=== PATIENT | male | born 1975 | race Caucasian/White ===

== ENCOUNTER → 2016-11-06 | Outpatient (CLI) | payer OTHER ==
[~2016-11-06] MED LIST: ATV/2 PO; BACL10TA PO; CYCL10TA6 PO; DIVA500T59 PO; FLX10 PO; GABA-113 PO; GABA1CAP4 PO; GABA600T PO; GEMF600T PO; LISI20TA3 PO; LPR25 PO; LRS10 PO; MAGN200T4 PO; MECL1TAB42 PO; OXYC1TAB3 PO; OXYC7.5T62 PO; PRAZ1CAP28 PO; PRAZ2CAP2 PO; PRED50TA PO; PXL20 PO; QUET1TAB10 PO; QUET1TAB90 PO; QUET5TAB PO; SENN8.6T7 PO; SUMA50TA15 PO; TPM/50 PO; TRAZ100T29 PO; VENL75CA PO
--- NOTE | 2016-11-08 16:54 | EEG Procedure Note ---
EEG Procedure Note Date of Service November 06, 2016. Start / End Times Start Time: 948 End Time: 1009 Referring Physician Erica Benitez PA-C History 41-year-old with syncopal episodes, question seizure Home Medication List Scheduled Divalproex Sodium (Depakote), 500 MG PO HS Gabapentin (Neurontin), 600 MG PO QID Gemfibrozil (Lopid), 600 MG PO BID Lisinopril (Prinivil), 20 MG PO DAILY Magnesium (Magnesium Oxide), 400 MG PO DAILY Metoprolol Tartrate (Lopressor), 25 MG PO BID Prazosin Hcl (Prazosin), 1 MG PO HS Quetiapine Fumarate (Seroquel), 300 MG PO HS Trazodone Hcl (Trazodone), 100 MG PO HS Venlafaxine Hcl (Effexor Xr), 75 MG PO DAILY Scheduled PRN Cyclobenzaprine HCl (Cyclobenzaprine HCl), 10 MG PO BID PRN for Muscle Spasms Lorazepam (Ativan), 2 MG PO TID PRN for Anxiety/Agitation Meclizine Hcl (Meclizine Hcl), 25 MG PO BID PRN for Dizziness or Vertigo Sumatriptan Succinate (Imitrex), 50 MG PO PRN PRN for Migraine Description This is a 21 electrode EEG with a single channel dedicated to limited EKG. The electrodes were placed in accordance with the International 10-20 system. Interpretation the predominant background activity consisted of very well-modulated 8.5 Hz activity of up to 65 V and F8 seen over the posterior head regions bilaterally spreading anteriorly. This activity is some attenuation with eye opening and other alerting procedures. A minimal amount of muscle and movement artifact activity contaminated the recording. Photic stimulation produced no driving response and no abnormalities were noted. Hyperventilation was not performed. Throughout the waking portion of this recording no focal abnormalities, potentially epileptogenic discharges, or abnormal slow activity was seen. Towards the end of the recording he had the drowsy state with no further activation. overall, the study is normal during wakefulness and brief periods of drowsiness. No focal abnormalities are noted and no potentially epileptogenic discharges were seen. Clinical Correlation a normal EEG does not rule out a seizure disorder and clinical correlation is required.
== END | disposition home or self-care (01) ==
LOC: C.NEUR 09:37
PROVIDERS: ATTEND Physician Assistant
DX: R55 Syncope and collapse (principal)

== ENCOUNTER 2017-05-13 21:33 | Emergency (ER) | payer OTHER ==
[~2017-05-13] VITALS: Ht 182.9 cm; Wt 120.0 kg
[~2017-05-13 21:33] MED LIST changes: -BACL10TA PO; -CYCL10TA6 PO; -GABA-113 PO; -GABA1CAP4 PO; -LRS10 PO; -OXYC1TAB3 PO; -OXYC7.5T62 PO; -PRAZ2CAP2 PO; -PRED50TA PO; -PXL20 PO; -QUET1TAB10 PO; -QUET5TAB PO; -SENN8.6T7 PO; -TPM/50 PO
[2017-05-13 21:38] VITALS: TEMP 36.7; Ht 182.9 cm; Wt 120.0 kg
[2017-05-13] MEDS ORDERED: HYDROmorphone INJ 2 MG/ML SYR/VIAL IM STA (21:53)
[2017-05-13] MEDS ORDERED: PROMETHAZINE HCL INJ 25 MG/ML 1 ML VIAL IM STA (21:53)
[2017-05-13] MEDS ORDERED: KETOROLAC TROMETHAMINE 60 MG/2 ML VIAL IM STA (21:53)
[2017-05-13] MEDS ORDERED: DEXAMETHASONE **PF** INJ 10 MG/ML VIAL IM ONE (22:00)
[2017-05-13] MEDS ORDERED: GABA1CAP4 PO (23:01)
[2017-05-13] MEDS ORDERED: GABA-113 PO (23:01)
[2017-05-13] MEDS ORDERED: PRAZ2CAP2 PO (23:01)
[2017-05-13] MEDS ORDERED: TPM/50 PO (23:01)
[2017-05-13] MEDS ORDERED: PXL20 PO (23:01)
[2017-05-13] MEDS ORDERED: QUET5TAB PO (23:01)
[2017-05-13] MEDS ORDERED: LRS10 PO (23:01)
[2017-05-13] MEDS ORDERED: QUET1TAB10 PO (23:01)
[2017-05-13] MEDS ORDERED: BACL10TA PO (23:01)
[2017-05-13 23:20] VITALS: BP 129/85; PULSE 86; O2SAT 96
[2017-05-13] MEDS ORDERED: CYCL10TA6 PO (23:30)
[2017-05-13] MEDS ORDERED: OXYCODONE IR HOME PACK PO ONE (23:30)
[2017-05-13] MEDS ORDERED: OXYC1TAB3 PO (23:30)
[2017-05-13] MEDS ORDERED: PRED50TA PO (23:30)
--- NOTE | 2017-05-14 00:18 | DIAGNOSTIC IMAGING REPORT ---
L-SPINE MIN 4 VIEWS ROUTINE CLINICAL HISTORY: 41 years-old Male presenting with low back pain. TECHNIQUE: Frontal, bilateral oblique, lateral, and coned in lateral views of the lumbar spine were obtained. COMPARISON: None. FINDINGS: Normal lumbar lordosis. Vertebral bodies maintain normal height and alignment. Intervertebral disc spaces preserved. No degenerative change. No radiographic evidence of acute fracture or subluxation. No gross evidence of osseous neural foraminal narrowing. No pars defect. Cholecystectomy clips noted. Mild stool burden. IMPRESSION: Normal lumbar spine. Electronically signed by: Gordo Aragon M.D. 05/14/2017 12:16 AM Dictated Date/Time: 05/14/2017 12:15 AM
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
== END 2017-05-13 23:48 | disposition home or self-care (01) ==
LOC: C.EDB 21:35
DX: M54.5 Low back pain (principal); F31.9 Bipolar disorder, unspecified; F41.9 Anxiety disorder, unspecified; F32.9 Major depressive disorder, single episode, unspecified; Z79.899 Other long term (current) drug therapy; Z87.81 Personal history of (healed) traumatic fracture; F17.200 Nicotine dependence, unspecified, uncomplicated

== ENCOUNTER 2017-05-21 10:25 | Inpatient (IN) | payer OTHER ==
[~2017-05-21] VITALS: Ht 182.9 cm; Wt 117.0 kg
[~2017-05-21 10:25] MED LIST changes: -ATV/2 PO; +CYCL10TA6 PO; -DIVA500T59 PO; -FLX10 PO; +GABA-113 PO; +GABA1CAP4 PO; -GABA600T PO; -GEMF600T PO; -LISI20TA3 PO; -LPR25 PO; +LRS10 PO; -MAGN200T4 PO; -MECL1TAB42 PO; -PRAZ1CAP28 PO; +PRAZ2CAP2 PO; +PXL20 PO; +QUET1TAB10 PO; -QUET1TAB90 PO; +QUET5TAB PO; -SUMA50TA15 PO; +TPM/50 PO; -TRAZ100T29 PO; -VENL75CA PO
[2017-05-21] MEDS ORDERED: ONDANSETRON INJ 2 MG/ML 2 ML VIAL IV STA (10:43)
[2017-05-21] MEDS ORDERED: HYDROmorphone INJ 1 MG/ML SYR IV STA ×3 (10:43→13:42)
[2017-05-21] MEDS ORDERED: KETOROLAC TROMETHAMINE 30 MG/ML VIAL IV STA (10:43)
[2017-05-21] MEDS ORDERED: DEXAMETHASONE INJ 10 MG in SYRINGE 0 ML IV STA (10:43)
[2017-05-21] MEDS ORDERED: LIDODERM (LIDOCAINE) PATCH 5% TD STA (10:43)
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
[2017-05-21 11:12] LABS: BASO % 0.2 %; BASO ABS # 0.02 K/uL (0-0.2); COMPLETE YES; EOS % 1.3 %; IG% 0.4 %; LYMPH % 21.8 %; LYMPH ABS # 2.58 K/uL (1.2-3.4); MEAN CELL VOLUME 89.5 fL (80-100); MEAN CORPUSCULAR HEMOGLOBIN 30.1 pg (25-34); MEAN CORPUSCULAR HGB CONC 33.6 g/dl (32-36); MEAN PLATELET VOLUME 10.6 fL (7.4-10.4); MONO % 5.6 %; NEUT % 70.7 %; PLATELET COUNT 240 K/uL (130-400); RED BLOOD COUNT 5.25 M/uL (4.7-6.1); WHITE BLOOD COUNT 11.81 K/uL (4.8-10.8)
[2017-05-21 11:18] LABS: ALT/SGPT 31 U/L (12-78); AST/SGOT 11 U/L (15-37); BLOOD UREA NITROGEN 21 mg/dl (7-18); BUN/CREATININE RATIO 22.6 (10-20); CALCIUM 8.8 mg/dl (8.5-10.1); CARBON DIOXIDE 21 mmol/L (21-32); CHLORIDE 107 mmol/L (98-107); CREATININE 0.95 mg/dl (0.60-1.40); GLUCOSE 87 mg/dl (70-99); POTASSIUM 4.3 mmol/L (3.5-5.1); SODIUM 137 mmol/L (136-145)
[2017-05-21 11:21] LABS: ALKALINE PHOSPHATASE 103 U/L (45-117)
[2017-05-21] MEDS ORDERED: METOCLOPRAMIDE HCL INJ 5 MG/ML 2 ML VIAL IV STA (12:25)
[2017-05-21 12:58] LABS: URINE APPEARANCE CLEAR (CLEAR); URINE BILIRUBIN NEG (NEG); URINE COLOR YELLOW; URINE NITRITE NEG (NEG); URINE SPECIFIC GRAVITY 1.023 (1.000-1.030); UROBILINOGEN NEG (NEG)
[2017-05-21 13:09] LABS: MANUAL MICROSCOPIC REQUIRED? NO; REVIEW REQ? NO
[2017-05-21] MEDS ORDERED: PROMETHAZINE HCL INJ 25 MG in SODIUM CHLORIDE 0.9% 50ML 50 ML IV STA (13:42)
--- NOTE | 2017-05-21 13:42 | DIAGNOSTIC IMAGING REPORT ---
LUMBAR SPINE MRI HISTORY: Pt c/o low back pain TECHNIQUE: Multiplanar multisequence MRI of the lumbar spine was performed without the use of contrast. COMPARISON: Lumbar spine 05/13/2017. FINDINGS: For the purpose of the report the L5-S1 disc space will be located on axial image 24 of 26. Mild motion artifact. No fracture or subluxation. Disc spaces are preserved. Mild disc desiccation at L3-L4 and L4-L5. The conus terminates at the L1 level. Paraspinal soft tissues are unremarkable. L1-L2: No significant central canal or neural foraminal narrowing. L2-L3: No significant central canal or neural foraminal narrowing. L3-L4: There is a right foraminal/extraforaminal focal disc protrusion which abuts and slightly displaces the exiting right L3 nerve root. No central canal or left-sided neural foraminal narrowing. L4-L5: Small central/right paracentral focal disc protrusion which abuts the transiting right L5 nerve root. No significant central canal or neural foraminal narrowing. L5-S1: Tiny left paracentral focal disc protrusion which abuts but does not significantly deform the transiting left S1 nerve root. No significant central canal or neural foraminal narrowing. IMPRESSION: 1. A right foraminal/extraforaminal broad-based disc protrusion at L3-L4 which abuts and slightly displaces the exiting right L3 nerve root. 2. A small central/right paracentral focal disc protrusion at L4-L5 which abuts but does not deform the transiting right L5 nerve root. 3. A tiny left paracentral focal disc protrusion at L5-S1 which abuts but does not deform the transiting left S1 nerve root. Electronically signed by: Tony Aguirre M.D. 05/21/2017 1:41 PM Dictated Date/Time: 05/21/2017 1:34 PM
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
[2017-05-21] MEDS ORDERED: ALUMINUM/MAGNESIUM/SIMETH (MAALOX MAX) 30 ML UDC PO PRN (14:30)
[2017-05-21] MEDS ORDERED: ZOLPIDEM TARTRATE 5 MG TAB PO PRN (14:30)
[2017-05-21] MEDS ORDERED: POLYETHYLENE (MIRALAX) 17 GM PACK PO PRN (14:30)
[2017-05-21] MEDS ORDERED: MAGNESIUM HYDROXIDE SUSP 30 ML UDC PO PRN (14:30)
[2017-05-21] MEDS ORDERED: ACETAMINOPHEN 325 MG TAB PO PRN (14:30)
--- NOTE | 2017-05-21 14:41 | DIAGNOSTIC IMAGING REPORT ---
CHEST ONE VIEW PORTABLE CLINICAL HISTORY: Preoperative chest COMPARISON STUDY: 07/20/2014 FINDINGS: The heart is the upper limits of normal in size. There is no failure. There is no focal pulmonary consolidation. There are no pleural effusions. Increased density of the left anterior fourth fifth and sixth ribs, while nonspecific likely is secondary to healing fractures[ IMPRESSION: Suspected healing left-sided rib fractures. No active disease in the chest. Electronically signed by: Roosevelt Serrato M.D. 05/21/2017 2:39 PM Dictated Date/Time: 05/21/2017 2:38 PM
[2017-05-21 15:56] VITALS: BP 156/99; PULSE 87; TEMP 36.6; O2SAT 92
[2017-05-21 16:14] VITALS: BP 156/99; PULSE 87; TEMP 36.6; O2SAT 97; Ht 182.9 cm; Wt 117.0 kg
[2017-05-21] MEDS ORDERED: HYDROmorphone INJ 1 MG/ML SYR IV ONE (16:15)
[2017-05-21 16:30] VITALS: O2SAT 97
[2017-05-21] MEDS: PROMETHAZINE HCL INJ 12.5 MG in SODIUM CHLORIDE 0.9% 50ML 50 ML IV PRN (16:35)
[2017-05-21] MEDS ORDERED: OXYCODONE/ACETAMINOPHEN 7.5-325 TAB PO PRN (18:15)
[2017-05-21] MEDS: OXYCODONE/ACETAMINOPHEN 7.5-325 TAB PO PRN ×2 (18:35→22:40)
[2017-05-21] MEDS: HYDROmorphone INJ 1 MG/ML SYR IV PRN ×2 (20:05→23:53)
[2017-05-21] MEDS: BACLOFEN 10 MG TAB PO SCH (20:06)
[2017-05-21] MEDS: DOCUSATE SODIUM 100 MG CAP PO SCH (20:06)
[2017-05-21] MEDS: GABAPENTIN 300 MG CAP PO SCH (20:06)
[2017-05-21] MEDS: PRAZOSIN HCL 1 MG CAP PO SCH (20:06)
[2017-05-21] MEDS: TOPIRAMATE 50 MG TAB PO SCH (20:07)
[2017-05-21] MEDS: QUETIAPINE FUMARATE 200 MG TAB PO SCH (20:07)
[2017-05-21] MEDS: NICOTINE 21 MG/24 HR TDSY TD SCH (20:08)
[2017-05-21] MEDS: PAROXETINE 20 MG TAB PO SCH (20:08)
[2017-05-21] MEDS ORDERED: INFLUENZA VIRUS QUAD VACCINE 0.5 ML SYR IM. ONE (21:15)
[2017-05-21] MEDS ORDERED: INFLUENZA ADMINISTRATION CHARGE ONE (21:15)
[2017-05-21 22:46] VITALS: BP 121/73; PULSE 96; TEMP 36.7; O2SAT 95
[2017-05-21] MEDS: ONDANSETRON INJ 2 MG/ML 2 ML VIAL IV PRN (23:20)
[2017-05-22] MEDS: PROMETHAZINE HCL INJ 12.5 MG in SODIUM CHLORIDE 0.9% 50ML 50 ML IV PRN ×2 (00:12→08:44)
[2017-05-22] MEDS: HYDROmorphone INJ 1 MG/ML SYR IV PRN ×5 (04:21→21:57)
[2017-05-22] MEDS: ONDANSETRON INJ 2 MG/ML 2 ML VIAL IV PRN (05:30)
[2017-05-22] MEDS: OXYCODONE/ACETAMINOPHEN 7.5-325 TAB PO PRN ×4 (05:31→20:13)
[2017-05-22 06:10] LABS: HEMATOCRIT 44.1 % (42-52); MEAN CELL VOLUME 90.6 fL (80-100); MEAN CORPUSCULAR HEMOGLOBIN 30.4 pg (25-34); MEAN CORPUSCULAR HGB CONC 33.6 g/dl (32-36); MEAN PLATELET VOLUME 11.4 fL (7.4-10.4); PLATELET COUNT 230 K/uL (130-400); RED BLOOD COUNT 4.87 M/uL (4.7-6.1); WHITE BLOOD COUNT 19.84 K/uL (4.8-10.8)
[2017-05-22 06:23] LABS: PROTHROMBIN TIME (PATIENT) 10.5 SECONDS (9.0-12.0)
[2017-05-22 07:01] LABS: BUN/CREATININE RATIO 19.9 (10-20); CALCIUM 8.5 mg/dl (8.5-10.1); CREATININE 0.99 mg/dl (0.60-1.40); POTASSIUM 4.2 mmol/L (3.5-5.1)
[2017-05-22 07:34] VITALS: BP 143/80; PULSE 114; TEMP 36.5; O2SAT 94
[2017-05-22] MEDS: PAROXETINE 20 MG TAB PO SCH ×2 (07:41→20:10)
[2017-05-22] MEDS: NICOTINE 21 MG/24 HR TDSY TD SCH (07:41)
[2017-05-22] MEDS: POLYETHYLENE (MIRALAX) 17 GM PACK PO SCH (07:41)
[2017-05-22] MEDS: GABAPENTIN 300 MG CAP PO SCH ×3 (07:42→20:10)
[2017-05-22] MEDS: QUETIAPINE FUMARATE 25 MG TAB PO SCH (07:42)
[2017-05-22] MEDS: DOCUSATE SODIUM 100 MG CAP PO SCH ×2 (07:42→20:09)
[2017-05-22] MEDS: BACLOFEN 10 MG TAB PO SCH ×3 (07:42→20:10)
[2017-05-22] MEDS: TOPIRAMATE 50 MG TAB PO SCH ×2 (07:42→20:12)
[2017-05-22] MEDS: LIDODERM (LIDOCAINE) PATCH 5% TD SCH (07:43)
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
[2017-05-22 15:05] VITALS: BP 135/85; PULSE 93; TEMP 36.6; O2SAT 94
--- NOTE | 2017-05-22 16:11 | Progress Note ---
Internal Med Progress Note Date of Service: May 22, 2017. Provider Documentation: SUBJECTIVE: complains of severe back pain radiating to his legs sob from pain afebrile no nausea or chest pain OBJECTIVE: Vital Signs-as noted below Exam: General-alert and oriented. Not in distress ENT-Normal hearing Neck-no neck masses Lungs-CTA b/l no wheezing or crackles Heart-S1 and S2 heard. Regular rate and rhythm, no murmurs Abdomen-Soft Bowel sounds present no tenderness present no distension Extremities-no edema no erythema. Neuro-alert and awake moves extremities Lab data as noted below. ASSESSMENT & PLAN: LOW BACK PAIN /LUMBER RADICULOPATHY : presented with worsening of back pain for past 1 week MRI spine mild disc protrusion at L3-L4 and L4-L5 levels Ortho recommends pain management pain control pt/to DEPRESSION : continue home meds TOBACCO ABUSE : Nicotine patch smoking cessation counselling FULL CODE DVT PROPHYLAXIS : SCD and teds ambulate DISPOSITION ; possible d/c in 1-2 days Medicine follow up with Dr Burleson Vital Signs: Date Time Temp Pulse Resp B/P (MAP) Pulse Ox O2 Delivery O2 Flow Rate FiO2 05/22/17 15:05 36.6 93 18 135/85 (102) 94 Room Air 05/22/17 07:34 36.5 114 20 143/80 (101) 94 Room Air 05/22/17 07:30 Room Air 05/21/17 23:30 Room Air 05/21/17 22:46 36.7 96 18 121/73 (89) 95 Room Air 05/21/17 19:40 Room Air 05/21/17 16:30 97 Room Air 05/21/17 16:14 36.6 87 22 156/99 97 Room Air Lab Results: Results Past 24 Hours Test 05/22/17 05:48 Range/Units White Blood Count 19.84 4.8-10.8 K/uL Red Blood Count 4.87 4.7-6.1 M/uL Hemoglobin 14.8 14.0-18.0 g/dL Hematocrit 44.1 42-52 % Mean Corpuscular Volume 90.6 80-100 fL Mean Corpuscular Hemoglobin 30.4 25-34 pg Mean Corpuscular Hemoglobin Concent 33.6 32-36 g/dl RDW Standard Deviation 42.4 36.4-46.3 fL RDW Coefficient of Variation 12.9 11.5-14.5 % Platelet Count 230 130-400 K/uL Mean Platelet Volume 11.4 7.4-10.4 fL Prothrombin Time 10.5 9.0-12.0 SECONDS Prothromb Time International Ratio 1.0 0.9-1.1 Sodium Level 135 136-145 mmol/L Potassium Level 4.2 3.5-5.1 mmol/L Chloride Level 103 98-107 mmol/L Carbon Dioxide Level 22 21-32 mmol/L Anion Gap 10.0 3-11 mmol/L Blood Urea Nitrogen 20 7-18 mg/dl Creatinine 0.99 0.60-1.40 mg/dl Est Creatinine Clear Calc Drug Dose 129.7 ml/min Estimated GFR () 109.2 Estimated GFR (Non- 94.2 BUN/Creatinine Ratio 19.9 10-20 Random Glucose 170 70-99 mg/dl Calcium Level 8.5 8.5-10.1 mg/dl
[2017-05-22 20:08] VITALS: BP 123/82; PULSE 88
[2017-05-22] MEDS: PRAZOSIN HCL 1 MG CAP PO SCH (20:11)
[2017-05-22] MEDS: QUETIAPINE FUMARATE 200 MG TAB PO SCH (20:12)
[2017-05-22 22:00] VITALS: PULSE 89; O2SAT 93
[2017-05-22 22:46] VITALS: BP 149/73; PULSE 84; TEMP 36.6; O2SAT 94
[2017-05-23] MEDS: HYDROmorphone INJ 1 MG/ML SYR IV PRN ×4 (02:46→15:48)
[2017-05-23] MEDS: OXYCODONE/ACETAMINOPHEN 7.5-325 TAB PO PRN (06:07)
[2017-05-23 06:48] VITALS: BP 158/95; PULSE 80; TEMP 36.5; O2SAT 94
[2017-05-23] MEDS: QUETIAPINE FUMARATE 25 MG TAB PO SCH (07:30)
[2017-05-23] MEDS: GABAPENTIN 300 MG CAP PO SCH ×2 (07:30→14:18)
[2017-05-23] MEDS: TOPIRAMATE 50 MG TAB PO SCH (07:30)
[2017-05-23] MEDS: DOCUSATE SODIUM 100 MG CAP PO SCH (07:30)
[2017-05-23] MEDS: BACLOFEN 10 MG TAB PO SCH ×2 (07:31→14:18)
[2017-05-23] MEDS: LIDODERM (LIDOCAINE) PATCH 5% TD SCH (07:31)
[2017-05-23] MEDS: PAROXETINE 20 MG TAB PO SCH (07:31)
[2017-05-23] MEDS: NICOTINE 21 MG/24 HR TDSY TD SCH (07:32)
[2017-05-23] MEDS: POLYETHYLENE (MIRALAX) 17 GM PACK PO SCH (07:32)
[2017-05-23 10:44] VITALS: BP 122/83; PULSE 84; O2SAT 96
--- NOTE | 2017-05-23 15:39 | Progress Note ---
Internal Med Progress Note Date of Service: May 23, 2017. Provider Documentation: SUBJECTIVE: still has severe back pain radiating to his legs sob from pain moved bowels afebrile wants to go home OBJECTIVE: Vital Signs-as noted below Exam: General-alert and oriented. Not in distress ENT-Normal hearing Neck-no neck masses Lungs-CTA b/l no wheezing or crackles Heart-S1 and S2 heard. Regular rate and rhythm, no murmurs Abdomen-Soft Bowel sounds present no tenderness present no distension Extremities-no edema no erythema. Neuro-alert and awake moves extremities Lab data as noted below. ASSESSMENT & PLAN: LOW BACK PAIN /LUMBER RADICULOPATHY : presented with worsening of back pain for past 1 week MRI spine mild disc protrusion at L3-L4 and L4-L5 levels Ortho recommends pain management pain control pt/to f/u with pcp and pain management DEPRESSION : continue home meds TOBACCO ABUSE : Nicotine patch smoking cessation counselling FULL CODE DVT PROPHYLAXIS : SCD and teds ambulate DISPOSITION ; possible d/c today Medicine follow up with Dr Burleson Vital Signs: Date Time Temp Pulse Resp B/P (MAP) Pulse Ox O2 Delivery O2 Flow Rate FiO2 05/23/17 10:44 84 96 05/23/17 08:00 Room Air 05/23/17 06:48 36.5 80 19 158/95 (116) 94 Room Air 05/22/17 23:15 Room Air 05/22/17 22:46 36.6 84 17 149/73 (98) 94 Room Air 05/22/17 22:00 89 93 Room Air 05/22/17 20:08 88 123/82 (96) 05/22/17 16:00 Room Air
[2017-05-23 15:40] VITALS: BP 158/107; PULSE 88; TEMP 36.4; O2SAT 93
[2017-05-23 16:00] VITALS: O2SAT 93
[2017-05-23] MEDS ORDERED: OXYC7.5T62 PO (17:22)
[2017-05-23] MEDS ORDERED: SENN8.6T7 PO (17:22)
--- NOTE | 2017-05-23 17:24 | Discharge Instructions ---
Discharge Instructions Date of Service May 23, 2017. Admission Reason for Admission: Low Back Pain Discharge Discharge Diagnosis / Problem: Severe low back pain Discharge Goals Goal(s): Decrease discomfort, Improve function Activity Recommendations Activity Limitations: resume your previous activity . Instructions / Follow-Up Instructions / Follow-Up FOLLOWUP WITH FAMILY DOCTOR ON Apr AT 9:45AM FOLLOWUP WITH PAIN MANAGEMENT FOR LOWER BACK PAIN TO AMBULATE TO PREVENT BLOOD CLOTS Current Hospital Diet Patient's current hospital diet: Regular Diet Discharge Diet Recommended Diet: AHA Diet (Heart Healthy) Pending Studies Studies pending at discharge: no Medical Emergencies . Who to Call and When: Medical Emergencies: If at any time you feel your situation is an emergency, please call 911 immediately. . Non-Emergent Contact Non-Emergency issues call your: Primary Care Provider . . "Provider Documentation" section prepared by Aba Choudhary. . VTE Core Measure Inpt VTE Proph given/why not?: Zoltan Forrest, SCD's
[2017-05-23 17:33] VITALS: BP 158/107; PULSE 88; TEMP 36.4; O2SAT 93
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
== END 2017-05-23 18:00 | disposition home or self-care (01) | DRG 552 ==
LOC: C.EDB 10:26 → C.MSW 14:19 → EDBEDREQ 14:31 → ENRESERV 15:03
PROVIDERS: ADMIT Hospitalist; ATTEND Internal Medicine
DX: M51.17 Intervertebral disc disorders with radiculopathy, lumbosacral region (principal); I10 Essential (primary) hypertension; F32.9 Major depressive disorder, single episode, unspecified; E66.9 Obesity, unspecified; Z79.899 Other long term (current) drug therapy; F17.200 Nicotine dependence, unspecified, uncomplicated; Z88.0 Allergy status to penicillin; Z88.6 Allergy status to analgesic agent; Z68.35 Body mass index [BMI] 35.0-35.9, adult

== ENCOUNTER 2017-06-05 20:32 | Emergency (ER) | payer OTHER ==
[~2017-06-05] VITALS: Ht 182.9 cm; Wt 123.0 kg
[~2017-06-05 20:32] MED LIST changes: -CYCL10TA6 PO; +OXYC7.5T62 PO; +SENN8.6T7 PO
[2017-06-05 20:36] VITALS: BP 142/72; PULSE 123; TEMP 36.7; O2SAT 95; Ht 182.9 cm; Wt 123.0 kg
[2017-06-05] MEDS ORDERED: KETOROLAC TROMETHAMINE 60 MG/2 ML VIAL IM STA (20:57)
[2017-06-05] MEDS ORDERED: MoRPHine SULFATE 10 MG/ML CARP/VIAL IM STA (20:57)
[2017-06-05] MEDS ORDERED: ONDANSETRON 2MG ODT PO ONE (21:00)
[2017-06-05] MEDS ORDERED: ONDANSETRON 4MG OD TAB ONE (21:06)
[2017-06-05] MEDS ORDERED: HYDROmorphone INJ 1 MG/ML SYR IM ONE (21:15)
[2017-06-05] MEDS ORDERED: PRED50TA PO (21:45)
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
== END 2017-06-05 22:00 | disposition home or self-care (01) ==
LOC: C.EDB 20:33 → C.EDC 22:00
DX: M54.41 Lumbago with sciatica, right side (principal); F41.9 Anxiety disorder, unspecified; F31.9 Bipolar disorder, unspecified; I10 Essential (primary) hypertension; Z98.52 Vasectomy status; Z90.49 Acquired absence of other specified parts of digestive tract; F17.210 Nicotine dependence, cigarettes, uncomplicated; Z79.899 Other long term (current) drug therapy

== ENCOUNTER 2018-02-03 09:35 | Emergency (ER) | payer OTHER ==
[~2018-02-03] VITALS: Ht 182.9 cm; Wt 130.0 kg
[~2018-02-03 09:35] MED LIST changes: +BENZ-88 PO; +CHLO100T8 PO; +CHLO1TAB45 PO; +CTP1CL PO; +EFFSR75 PO; -GABA-113 PO; +GABA-1219 PO; -GABA1CAP4 PO; +NRN600 PO; -OXYC7.5T62 PO; -PXL20 PO; -QUET1TAB10 PO; -QUET5TAB PO; -SENN8.6T7 PO; -TPM/50 PO
[2018-02-03 09:41] VITALS: TEMP 36.6; Ht 182.9 cm; Wt 130.0 kg
--- NOTE | 2018-02-03 10:11 | EMERGENCY ROOM VISIT NOTE ---
History Report prepared by Heena: Hugh Nickerson Under the Supervision of: Dr. Saman Camilo M.D. First contact with patient: 09:47 Chief Complaint: MENTAL HEALTH EVALUATION Stated Complaint: SUICIDAL, HEARING VOICES History of Present Illness The patient is a 42 year old male with a past medical history of Anxiety, Chronic bipolar disease, Depression, Hypertension, Migraines, Seizures , and Strokes who presents to the ED with a cc of an episode Suicidal thoughts beginning within the past week. The patient states that he lost his brother a week ago and has been going through a "crisis" since then. He is hearing voices that he does not recognize telling him to . He also states that he currently wants to hurt himself via overdose. The patient reports that he does have a history of mental illness and suicidal thoughts but no history of hearing voices. He notes that he tried to hurt himself before using muscle relaxers and blood pressure medications. He states that he was admitted to [facility] last time he had an episode. He states that he does take medications for his mental health and there has not been a change in them recently. He also reports using marijuana about an hour prior to arrival. Positive SI . Negative tobacco and alcohol use. Source of History: patient Onset: Within the last week Position: other (Generalized) Quality: other (Suicidal Thoughts ) Timing: other (Episode ) Note: Positive auditory hallucinations Review of Systems See HPI for pertinent positives and negatives. A total of ten systems were reviewed and were otherwise negative. Past Medical & Surgical Medical Problems: (1) Anxiety (2) Bipolar disease, chronic (3) Depression (4) Hypertension (5) Hypertensive urgency (6) Migraine (7) Seizure (8) Stroke Surgical Problems: (1) H/O vasectomy (2) Hx of cholecystectomy Family History Patient reports no known family medical history. Social History Smoking Status: Current Every Day Smoker Alcohol Use: none Marital Status: Housing Status: lives with family Occupation Status: disabled Current/Historical Medications Scheduled Baclofen (Baclofen), 10 MG PO TID Benztropine Mesylate (Benztropine Mesylate), 1 MG PO QAM Chlorpromazine Hcl (Thorazine), 100 MG PO TID Chlorpromazine Hcl (Thorazine), 200 MG PO HS Clonidine Hcl (Catapres), 0.1 MG PO daily at 4pm Gabapentin (Gabapentin), 300 MG PO BID Gabapentin (Gabapentin), 600 MG PO TID Prazosin Hcl (Prazosin), 2 MG PO HS Venlafaxine Hcl (Effexor Extended Rel), 75 MG PO BID Allergies Coded Allergies: Latex (Verified Allergy, Intermediate, rash, 02/03/18) Niacin (Verified Allergy, Intermediate, burning sensation, 02/03/18) Penicillins (Verified Allergy, Intermediate, 02/03/18) "MASSIVE HIVES" Aspirin (Verified Allergy, Unknown, 02/03/18) Physical Exam Vital Signs Date Time Temp Pulse Resp B/P (MAP) Pulse Ox O2 Delivery O2 Flow Rate FiO2 02/03/18 14:39 114 22 137/78 94 Room Air 02/03/18 09:41 36.6 109 20 123/86 92 Room Air Physical Exam GENERAL: Awake, alert, well-appearing, NAD, Facial piercing HENT: Normocephalic, atraumatic. EYES: Normal conjunctiva. Sclera non-icteric. PERRL. No anisocoria. NECK: Supple. No nuchal rigidity. FROM. RESPIRATORY: CTAB, no rhonchi, wheezing, crackles CARDIAC: RRR, no MRG ABDOMEN: Soft, NTND, BS+ MSK: No chest wall TTP, no LE edema NEURO: GCS 15, CN 2-12 intact, moves all 4s on command, SI, positive auditory hallucinations, negative HI, Negative VH SKIN: No rash or jaundice noted. Medical Decision & Procedures Laboratory Results 02/03/18 10:13 Red Blood Count 4.69, Mean Corpuscular Volume 89.1, Mean Corpuscular Hemoglobin 29.6, Mean Corpuscular Hemoglobin Concent 33.3, Mean Platelet Volume 10.8, Neutrophils (%) (Auto) 75.0, Lymphocytes (%) (Auto) 17.8, Monocytes (%) (Auto) 5.7, Eosinophils (%) (Auto) 0.7, Basophils (%) (Auto) 0.3, Neutrophils # (Auto) 8.77, Lymphocytes # (Auto) 2.08, Monocytes # (Auto) 0.67, Eosinophils # (Auto) 0.08, Basophils # (Auto) 0.04 02/03/18 10:13 Test 02/03/18 10:09 02/03/18 10:13 02/03/18 10:16 Bedside Glucose 105 mg/dl (70-99) White Blood Count 11.70 K/uL (4.8-10.8) Red Blood Count 4.69 M/uL (4.7-6.1) Hemoglobin 13.9 g/dL (14.0-18.0) Hematocrit 41.8 % (42-52) Mean Corpuscular Volume 89.1 fL (80-100) Mean Corpuscular Hemoglobin 29.6 pg (25-34) Mean Corpuscular Hemoglobin Concent 33.3 g/dl (32-36) Platelet Count 256 K/uL (130-400) Mean Platelet Volume 10.8 fL (7.4-10.4) Neutrophils (%) (Auto) 75.0 % Lymphocytes (%) (Auto) 17.8 % Monocytes (%) (Auto) 5.7 % Eosinophils (%) (Auto) 0.7 % Basophils (%) (Auto) 0.3 % Neutrophils # (Auto) 8.77 K/uL (1.4-6.5) Lymphocytes # (Auto) 2.08 K/uL (1.2-3.4) Monocytes # (Auto) 0.67 K/uL (0.11-0.59) Eosinophils # (Auto) 0.08 K/uL (0-0.5) Basophils # (Auto) 0.04 K/uL (0-0.2) RDW Standard Deviation 42.6 fL (36.4-46.3) RDW Coefficient of Variation 13.0 % (11.5-14.5) Immature Granulocyte % (Auto) 0.5 % Immature Granulocyte # (Auto) 0.06 K/uL (0.00-0.02) Anion Gap 8.0 mmol/L (3-11) Est Creatinine Clear Calc Drug Dose 125.4 ml/min Estimated GFR () 98.7 Estimated GFR (Non- 85.2 BUN/Creatinine Ratio 10.8 (10-20) Calcium Level 8.4 mg/dl (8.5-10.1) Total Bilirubin 0.2 mg/dl (0.2-1) Direct Bilirubin < 0.1 mg/dl (0-0.2) Aspartate Amino Transf (AST/SGOT) 39 U/L (15-37) Alanine Aminotransferase (ALT/SGPT) 72 U/L (12-78) Alkaline Phosphatase 75 U/L (45-117) Total Protein 7.7 gm/dl (6.4-8.2) Albumin 3.5 gm/dl (3.4-5.0) Thyroid Stimulating Hormone (TSH) 1.430 uIu/ml (0.300-4.500) Salicylates Level 2.1 mg/dl (2.8-20) Acetaminophen Level < 2 ug/ml (10-30) Ethyl Alcohol mg/dL < 3.0 mg/dl (0-3) Urine Color YELLOW Urine Appearance CLEAR (CLEAR) Urine pH 5.0 (4.5-7.5) Urine Specific [place] 1.018 (1.000-1.030) Urine Protein NEG (NEG) Urine Glucose (UA) NEG (NEG) Urine Ketones NEG (NEG) Urine Occult Blood NEG (NEG) Urine Nitrite NEG (NEG) Urine Bilirubin NEG (NEG) Urine Urobilinogen NEG (NEG) Urine Leukocyte Esterase NEG (NEG) Urine Opiates Screen NEG (NEG) Urine Methadone, Qualitative NEG (NEG) Urine Barbiturates NEG (NEG) Urine Phencyclidine (PCP) Level NEG (NEG) Ur Amphetamine/Methamphetamine NEG (NEG) MDMA (Ecstasy) Screen NEG (NEG) Urine Benzodiazepines Screen NEG (NEG) Urine Cocaine Metabolite NEG (NEG) Urine Marijuana (THC) POS (NEG) Laboratory results reviewed by me Medications Administered Medications (Trade) Dose Ordered Sig/Mario Route Start Time Stop Time Status Last Admin Dose Admin Famotidine (Pepcid Tab) 20 mg NOW ONCE PO 02/03/18 14:30 02/03/18 14:31 DC 02/03/18 14:39 20 MG Lidocaine HCl (Viscous Lidocaine 2% Soln) 20 ml STK-MED ONCE .ROUTE 02/03/18 14:25 02/03/18 14:26 DC 02/03/18 14:39 10 ML Al Hydroxide/Mg Hydroxide (Maalox Susp) 30 ml STK-MED ONCE .ROUTE 02/03/18 14:25 02/03/18 14:26 DC 02/03/18 14:39 30 ML ED Course 0945: The patient was evaluated in room A5. A complete history and physical exam was performed. 1422: I signed a 201 for the patient to be transferred to the [facility] at 1500. Medical Decision Nursing notes reviewed. Ancillary studies and prior records reviewed. The patient is a 42 year old male with a past medical history of Anxiety, Chronic bipolar disease, Depression, Hypertension, Migraines, Seizures , and Strokes who presents to the ED with a cc of an episode Suicidal thoughts beginning within the past week Differential diagnosis: Etiologies such as mood disorder, infection, hypoglycemia, electrolyte abnormalities, cardiac sources, intracerebral event, toxicologic, neurologic, as well as others were entertained. Patient was seen and evaluated the bedside. Patient does have a known history of mental illness. The patient states that his brother recently and this is making quite distraught. Patient does complain of SI with intent to overdose on his medications. Patient states he has tried this in the past several months ago. Patient has been an inpatient at the [facility]. The patient does admit to smoking weed recently but denies any other drugs or alcohol. Patient also has had auditory hallucinations but does not recognize the voices and there are multiple voices. Patient was deemed medically clear. Psych disease case manager rn was seen and evaluated the patient and the patient was admitted voluntarily as an inpatient to the [facility]. Medication Reconcilliation Current Medication List: was personally reviewed by me Blood Pressure Screening Patient's blood pressure: Normal blood pressure Impression Primary Impression: Suicidal ideation Additional Impressions: Depression Auditory hallucination Encounter for smoking cessation counseling Scribe Attestation The scribe's documentation has been prepared under my direction and personally reviewed by me in its entirety. I confirm that the note above accurately reflects all work, treatment, procedures, and medical decision making performed by me. Departure Information Dispostion Mental Health Acute Care Referrals Yvon Burleson M.D. (PCP) Forms HOME CARE DOCUMENTATION FORM, IMPORTANT VISIT INFORMATION Patient Instructions My [facility] Problem Qualifiers Additional Impressions: Depression Depression Type: major depressive disorder Major depression recurrence: single episode Active/Remission status: currently active Major depression episode severity: severe Psychotic features: with psychotic features Qualified Codes: F32.3 - Major depressive disorder, single episode, severe with psychotic features
[2018-02-03 10:46] LABS: BASO % 0.3 %; BASO ABS # 0.04 K/uL (0-0.2); EOS % 0.7 %; EOS ABS # 0.08 K/uL (0-0.5); HEMATOCRIT 41.8 % (42-52); HEMOGLOBIN 13.9 g/dL (14.0-18.0); IG# 0.06 K/uL (0.00-0.02); LYMPH % 17.8 %; LYMPH ABS # 2.08 K/uL (1.2-3.4); MEAN CELL VOLUME 89.1 fL (80-100); MEAN CORPUSCULAR HEMOGLOBIN 29.6 pg (25-34); MEAN CORPUSCULAR HGB CONC 33.3 g/dl (32-36); MEAN PLATELET VOLUME 10.8 fL (7.4-10.4); MONO % 5.7 %; MONO ABS # 0.67 K/uL (0.11-0.59); NEUT ABS # 8.77 K/uL (1.4-6.5); PLATELET COUNT 256 K/uL (130-400); RED CELL DISTRIBUTION WIDTH SD 42.6 fL (36.4-46.3)
[2018-02-03 11:16] LABS: ALBUMIN 3.5 gm/dl (3.4-5.0); ALKALINE PHOSPHATASE 75 U/L (45-117); ALT/SGPT 72 U/L (12-78); AST/SGOT 39 U/L (15-37); BLOOD UREA NITROGEN 12 mg/dl (7-18); CALCIUM 8.4 mg/dl (8.5-10.1); CARBON DIOXIDE 21 mmol/L (21-32); CREATININE 1.07 mg/dl (0.60-1.40); GLUCOSE 98 mg/dl (70-99); POTASSIUM 4.3 mmol/L (3.5-5.1); SODIUM 134 mmol/L (136-145); TOTAL PROTEIN 7.7 gm/dl (6.4-8.2)
[2018-02-03] MEDS ORDERED: GI COCKTAIL PO STA (14:22)
[2018-02-03] MEDS ORDERED: LIDOCAINE HCL 2% VISC SOLN 20 ML UDC ONE (14:25)
[2018-02-03] MEDS ORDERED: ALUMINUM/MAGNESIUM SUSP 30 ML UDC ONE (14:25)
[2018-02-03] MEDS ORDERED: FAMOTIDINE 20 MG TAB PO ONE (14:30)
[2018-02-03 14:39] VITALS: BP 137/78; PULSE 114; O2SAT 94
== END 2018-02-03 15:08 ==
LOC: C.EDB 09:36 → C.EDA 15:08
DX: R45.851 Suicidal ideations (principal); F32.3 Major depressive disorder, single episode, severe with psychotic features; R44.0 Auditory hallucinations; F12.90 Cannabis use, unspecified, uncomplicated; F41.9 Anxiety disorder, unspecified; F31.9 Bipolar disorder, unspecified; I10 Essential (primary) hypertension; Z79.899 Other long term (current) drug therapy; F17.200 Nicotine dependence, unspecified, uncomplicated; Z91.040 Latex allergy status; Z88.0 Allergy status to penicillin; Z88.8 Allergy status to other drugs, medicaments and biological substances

== ENCOUNTER 2018-02-21 20:44 | Inpatient (IN) | payer OTHER ==
[~2018-02-21] VITALS: Ht 152.4 cm; Wt 132.4 kg
[~2018-02-21 20:44] MED LIST changes: -GABA-1219 PO; -LRS10 PO; -PRAZ2CAP2 PO
[2018-02-21] MEDS ORDERED: SODIUM CHLORIDE 0.9% 1000ML 1,000 ML IV STA (20:50)
[2018-02-21] MEDS ORDERED: LORAZEPAM 2 MG/ML 1 ML VIAL IV STA (20:50)
--- NOTE | 2018-02-21 20:56 | EMERGENCY ROOM VISIT NOTE ---
History Report prepared by Heena: Jonny Ngo Under the Supervision of: Dr. Saman Camilo M.D. First contact with patient: 20:45 Stated Complaint: ALLERGIC REACTION/SOB, TROUBLE SWALLOWING History of Present Illness The patient is a 42 year old white male with a past medical history of anxiety, bipolar disease, depression, hypertension, migraine, seizure, and stroke who presents to the Emergency Room with complaints of a constant sensation of "throat swelling" that began about 45 minutes ago. EMS states that the patient ate Mac and Cheese about 1 hour ago, 15 minutes before the symptoms began. The patient believes he is having an allergic reaction, and also complains of some shortness of breath and a chest "pressure." His main complaint is that he cannot swallow. He denies any swelling in his tongue. The patient denies any new medications or insect bites/stings. He has no known allergies aside from bee stings. The patient did take 50 mg of PO Benadryl today about 2 hour prior to symptom onset. He notes he takes this regularly. Source of History: patient Onset: 45 minutes ago Position: throat Quality: other (swelling) Timing: constant Associated Symptoms: + chest pain, + SOB Review of Systems See HPI for pertinent positives and negatives. A total of ten systems were reviewed and were otherwise negative. Past Medical & Surgical Medical Problems: (1) Allergic reaction (2) Anxiety (3) Bipolar disease, chronic (4) Depression (5) Hypertension (6) Hypertensive urgency (7) Migraine (8) Seizure (9) Stroke Surgical Problems: (1) H/O vasectomy (2) Hx of cholecystectomy Family History Patient reports no known family medical history. Social History Smoking Status: Current Every Day Smoker Alcohol Use: none Marital Status: Housing Status: lives with family Occupation Status: disabled Current/Historical Medications Scheduled Baclofen (Baclofen), 10 MG PO TID Benztropine Mesylate (Benztropine Mesylate), 1 MG PO QD@2100 Chlorpromazine Hcl (Thorazine), 50 MG PO QD@0100 Chlorpromazine Hcl (Thorazine), 50 MG PO QD@1300 Chlorpromazine Hcl (Thorazine), 500 MG PO QD@2100 Clonidine Hcl (Catapres), 0.1 MG PO QD@1600 Gabapentin (Gabapentin), 900 MG PO QD@2100 Gabapentin (Gabapentin), 600 MG PO BID Hydroxyzine Pamoate (Vistaril), 100 MG PO HS Melatonin-Pyridoxine (Melatonin), 9 MG PO HS Prazosin Hcl (Prazosin), 4 MG PO HS Venlafaxine Hcl (Effexor Extended Rel), 150 MG PO DAILY Allergies Coded Allergies: Latex (Verified Allergy, Intermediate, rash, 02/03/18) Niacin (Verified Allergy, Intermediate, burning sensation, 02/03/18) Penicillins (Verified Allergy, Intermediate, 02/03/18) "MASSIVE HIVES" Aspirin (Verified Allergy, Unknown, 02/03/18) Physical Exam Vital Signs Date Time Temp Pulse Resp B/P (MAP) Pulse Ox O2 Delivery O2 Flow Rate FiO2 02/21/18 23:10 103 18 144/109 93 Room Air 02/21/18 22:36 109 18 178/120 94 Room Air 02/21/18 21:02 118 02/21/18 20:56 94 Room Air 02/21/18 20:53 Room Air 02/21/18 20:49 36.5 110 140/101 95 Room Air Physical Exam GENERAL: Awake, alert, well-appearing, NAD HENT: Normocephalic, atraumatic. Mucous membranes are dry. Posterior oropharynx is clear. No tonsillar or uvular deviation or swelling. EYES: Normal conjunctiva. Sclera non-icteric. PERRL. No anisocoria. There is a right eyebrow piercing. NECK: Supple. No nuchal rigidity. FROM. Non-stridulous, no wheezing. RESPIRATORY: CTAB, no rhonchi, wheezing, crackles CARDIAC: RRR, no MRG ABDOMEN: Soft, NTND, BS+ MSK: No chest wall TTP, no LE edema NEURO: GCS 15, CN 2-12 intact, moves all 4s on command SKIN: No rash or jaundice noted. Medical Decision & Procedures ER Provider Diagnostic Interpretation: Radiology results as stated below per my review and radiologist interpretation: CHEST ONE VIEW PORTABLE CLINICAL HISTORY: SOB COMPARISON STUDY: 12/16/2017 FINDINGS: The cardiac and mediastinal contours are normal. There is no evidence of focal pulmonary consolidation. There is no evidence of failure. No pleural effusions are visualized.[ IMPRESSION: No active disease in the chest. Electronically signed by: Roosevelt Serrato M.D. 02/21/2018 10:43 PM Dictated Date/Time: 02/21/2018 10:43 PM Laboratory Results 02/21/18 21:07 Red Blood Count 5.06, Mean Corpuscular Volume 88.7, Mean Corpuscular Hemoglobin 29.1, Mean Corpuscular Hemoglobin Concent 32.7, Mean Platelet Volume 10.8, Neutrophils (%) (Auto) 52.0, Lymphocytes (%) (Auto) 39.2, Monocytes (%) (Auto) 6.4, Eosinophils (%) (Auto) 1.3, Basophils (%) (Auto) 0.9, Neutrophils # (Auto) 4.86, Lymphocytes # (Auto) 3.66, Monocytes # (Auto) 0.60, Eosinophils # (Auto) 0.12, Basophils # (Auto) 0.08 02/21/18 21:07 Test 02/21/18 21:00 02/21/18 21:07 Urine Color DK YELLOW Urine Appearance CLEAR (CLEAR) Urine pH 5.0 (4.5-7.5) Urine Specific [place] > 1.045 (1.000-1.030) Urine Protein 1+ (NEG) Urine Glucose (UA) NEG (NEG) Urine Ketones TRACE (NEG) Urine Occult Blood NEG (NEG) Urine Nitrite NEG (NEG) Urine Bilirubin 1+ (NEG) Urine Urobilinogen NEG (NEG) Urine Leukocyte Esterase NEG (NEG) Urine WBC (Auto) 1-5 /hpf (0-5) Urine RBC (Auto) 0-4 /hpf (0-4) Urine Hyaline Casts (Auto) 1-5 /lpf (0-5) Urine Epithelial Cells (Auto) 5-10 /lpf (0-5) Urine Bacteria (Auto) NEG (NEG) Urine Crystals CALCIUM OXALATE (NONE White Blood Count 9.34 K/uL (4.8-10.8) Red Blood Count 5.06 M/uL (4.7-6.1) Hemoglobin 14.7 g/dL (14.0-18.0) Hematocrit 44.9 % (42-52) Mean Corpuscular Volume 88.7 fL (80-100) Mean Corpuscular Hemoglobin 29.1 pg (25-34) Mean Corpuscular Hemoglobin Concent 32.7 g/dl (32-36) Platelet Count 213 K/uL (130-400) Mean Platelet Volume 10.8 fL (7.4-10.4) Neutrophils (%) (Auto) 52.0 % Lymphocytes (%) (Auto) 39.2 % Monocytes (%) (Auto) 6.4 % Eosinophils (%) (Auto) 1.3 % Basophils (%) (Auto) 0.9 % Neutrophils # (Auto) 4.86 K/uL (1.4-6.5) Lymphocytes # (Auto) 3.66 K/uL (1.2-3.4) Monocytes # (Auto) 0.60 K/uL (0.11-0.59) Eosinophils # (Auto) 0.12 K/uL (0-0.5) Basophils # (Auto) 0.08 K/uL (0-0.2) RDW Standard Deviation 41.2 fL (36.4-46.3) RDW Coefficient of Variation 12.8 % (11.5-14.5) Immature Granulocyte % (Auto) 0.2 % Immature Granulocyte # (Auto) 0.02 K/uL (0.00-0.02) Prothrombin Time 10.8 SECONDS (9.0-12.0) Prothromb Time International Ratio 1.0 (0.9-1.1) Activated Partial Thromboplast Time 24.7 SECONDS (21.0-31.0) Partial Thromboplastin Ratio 1.0 Anion Gap 12.0 mmol/L (3-11) Est Creatinine Clear Calc Drug Dose 123.2 ml/min Estimated GFR () 97.6 Estimated GFR (Non- 84.2 BUN/Creatinine Ratio 12.9 (10-20) Calcium Level 8.5 mg/dl (8.5-10.1) Phosphorus Level 2.9 mg/dl (2.5-4.9) Magnesium Level 1.9 mg/dl (1.8-2.4) Troponin I < 0.015 ng/ml (0-0.045) Pro-B-Type Natriuretic Peptide 6 pg/ml (0-450) Laboratory results reviewed by me Medications Administered Medications (Trade) Dose Ordered Sig/Mario Route Start Time Stop Time Status Last Admin Dose Admin Sodium Chloride 1,000 ml @ 999 mls/hr Q1H1M STAT IV 02/21/18 20:50 02/21/18 21:50 DC 02/21/18 20:50 999 MLS/HR Lorazepam (Ativan Inj) 0.5 mg NOW STAT IV 02/21/18 20:50 02/21/18 20:54 DC 02/21/18 20:50 0.5 MG Magnesium Oxide (Mag-Ox Tab) 800 mg ONE STAT PO 02/21/18 22:54 02/21/18 22:55 DC 02/21/18 23:03 800 MG Potassium Chloride (Klor-Con M10) 40 meq STK-MED ONCE .ROUTE 02/21/18 23:01 02/21/18 23:02 DC 02/21/18 23:01 40 MEQ ECG Per My Interpretation Indication: chest pain Rate (beats per minute): 110 Rhythm: sinus tachycardia Findings: prolonged QT, other (Short UT, normal axis) ED Course 2045: The patient was evaluated in room A9B. A complete history and physical exam was performed. 2224: I checked on the patient at this time. She does feel a little better. 2340: I discussed the case with Dr. Kenrick Downey Hospitalist. He will evaluate the patient for further treatment. Medical Decision The patient is a 42 year old white male with a past medical history of anxiety, bipolar disease, depression, hypertension, migraine, seizure, and stroke who presents to the Emergency Room with complaints of a constant sensation of "throat swelling" that began about 45 minutes ago. Nursing notes reviewed. Ancillary studies and prior records reviewed. Differential diagnosis: Etiologies such as allergic reaction, anaphylaxis, urticaria, Ashford-Jag syndrome, toxic epidermal necrolysis, erythema multiforme, cellulitis, as well as others were entertained. Patient was seen and evaluated the bedside. The patient had complained of some questionable throat swelling and possible allergic reaction after eating some macaroni and cheese. Patient was given epinephrine and Solu-Medrol in route. On exam the patient does have dry mucous membranes but a clear posterior pharynx and no stridor and no wheezing. Patient denies any nausea or vomiting. Patient did have blood work completed along with EKG troponin chest x-ray and was given some additional IV fluids along with some Ativan Patient's EKG was remarkable for prolonged QT. Patient did have mild hypokalemia but I do not believe that a hypokalemia of 3.3 would cause such dramatic increase his prior EKGs do not show this. The patient does take Thorazine as well as venlafaxine which may be contributory. Blood work also unremarkable. Upon reassessment the patient was feeling improved. Patient was able to tolerate p.o. both liquid and solids. Patient's chest x-ray was clear. Patient did have some mild persistent tachycardia which is likely secondary to poor p.o. hydration at home in addition to the epinephrine he was given prior to arrival. Given these issues I did discuss the case with the on-call hospitalist and stated the patient may benefit from telemetry and possible medication changes given the patient's prolonged QT. Patient was admitted for observation to the medicine service. Medication Reconcilliation Current Medication List: was personally reviewed by me Blood Pressure Screening Patient's blood pressure: Elevated blood pressure Referred to hospitalist. Consults Time Called: [phone] Consulting Physician: Dr. Kenrick Downey [facility] Returned Call: [phone] I discussed the case with Dr. Kenrick Mccollum. He will evaluate the patient for further treatment. Impression Primary Impression: Prolonged QT interval Additional Impressions: SOB (shortness of breath) Hypokalemia Scribe Attestation The scribe's documentation has been prepared under my direction and personally reviewed by me in its entirety. I confirm that the note above accurately reflects all work, treatment, procedures, and medical decision making performed by me. Departure Information Dispostion Being Evaluated By Hospitalist Yvon Aguero M.D. (PCP) Problem Qualifiers
[2018-02-21 21:36] LABS: BASO % 0.9 %; BASO ABS # 0.08 K/uL (0-0.2); EOS % 1.3 %; EOS ABS # 0.12 K/uL (0-0.5); HEMATOCRIT 44.9 % (42-52); HEMOGLOBIN 14.7 g/dL (14.0-18.0); IG# 0.02 K/uL (0.00-0.02); LYMPH % 39.2 %; LYMPH ABS # 3.66 K/uL (1.2-3.4); MEAN CELL VOLUME 88.7 fL (80-100); MEAN CORPUSCULAR HEMOGLOBIN 29.1 pg (25-34); MEAN CORPUSCULAR HGB CONC 32.7 g/dl (32-36); MEAN PLATELET VOLUME 10.8 fL (7.4-10.4); MONO % 6.4 %; NEUT ABS # 4.86 K/uL (1.4-6.5); PLATELET COUNT 213 K/uL (130-400); RED CELL DISTRIBUTION WIDTH CV 12.8 % (11.5-14.5); RED CELL DISTRIBUTION WIDTH SD 41.2 fL (36.4-46.3); WHITE BLOOD COUNT 9.34 K/uL (4.8-10.8)
[2018-02-21] MEDS ORDERED: EFFSR150 PO (21:37)
[2018-02-21] MEDS ORDERED: MELA3TAB7 PO (21:37)
[2018-02-21] MEDS ORDERED: HYDR100C PO (21:37)
[2018-02-21] MEDS ORDERED: CHLO100T8 PO (21:37)
[2018-02-21 21:46] LABS: PTT PATIENT 24.7 SECONDS (21.0-31.0)
[2018-02-21 22:37] LABS: BLOOD UREA NITROGEN 14 mg/dl (7-18); CALCIUM 8.5 mg/dl (8.5-10.1); CARBON DIOXIDE 24 mmol/L (21-32); CREATININE 1.08 mg/dl (0.60-1.40); GLUCOSE 148 mg/dl (70-99); POTASSIUM 3.3 mmol/L (3.5-5.1); SODIUM 141 mmol/L (136-145)
--- NOTE | 2018-02-21 22:45 | DIAGNOSTIC IMAGING REPORT ---
CHEST ONE VIEW PORTABLE CLINICAL HISTORY: SOB COMPARISON STUDY: 12/16/2017 FINDINGS: The cardiac and mediastinal contours are normal. There is no evidence of focal pulmonary consolidation. There is no evidence of failure. No pleural effusions are visualized.[ IMPRESSION: No active disease in the chest. Electronically signed by: Roosevelt Serrato M.D. 02/21/2018 10:43 PM Dictated Date/Time: 02/21/2018 10:43 PM
[2018-02-21] MEDS ORDERED: POTASSIUM CHLORIDE 20 MEQ TABCR PO STA (22:54)
[2018-02-21] MEDS ORDERED: MAGNESIUM OXIDE 400 MG TAB PO STA (22:54)
[2018-02-21] MEDS ORDERED: GABA-1219 PO (23:01)
[2018-02-21] MEDS ORDERED: PRAZ2CAP2 PO (23:01)
[2018-02-21] MEDS ORDERED: POTASSIUM CHLORIDE 10 MEQ TABCR ONE (23:01)
[2018-02-21] MEDS ORDERED: LRS10 PO (23:01)
[2018-02-21 23:04] LABS: PHOSPHORUS 2.9 mg/dl (2.5-4.9)
[2018-02-22] MEDS ORDERED: SODIUM CHLORIDE 0.9% 1000ML 1,000 ML IV SCH (00:17)
[2018-02-22] MEDS ORDERED: POLYETHYLENE (MIRALAX) 17 GM PACK PO PRN (00:30)
[2018-02-22] MEDS ORDERED: ACETAMINOPHEN 325 MG TAB PO PRN (00:30)
[2018-02-22] MEDS ORDERED: NITROGLYCERIN 0.4 MG SL PER TAB CHARGE SL PRN (00:30)
[2018-02-22] MEDS ORDERED: ALUMINUM/MAGNESIUM/SIMETH (MAALOX MAX) 30 ML UDC PO PRN (00:30)
[2018-02-22] MEDS ORDERED: ONDANSETRON INJ 2 MG/ML 2 ML VIAL IV PRN (00:30)
[2018-02-22] MEDS ORDERED: OPTIRAY 320 IV PRN (00:30)
[2018-02-22] MEDS ORDERED: HYDROmorphone INJ 0.5 MG/0.5 ML SYR IV PRN (00:45)
[2018-02-22 01:26] VITALS: BP 163/112; PULSE 103; TEMP 36.5; O2SAT 94; Ht 152.4 cm; Wt 132.4 kg
[2018-02-22] MEDS ORDERED: METHYLPREDNISOLONE IV 60 MG in SYRINGE 0 ML IV ONE (03:15)
[2018-02-22 03:33] VITALS: BP 149/107
[2018-02-22 05:24] LABS: HEMOGLOBIN 14.4 g/dL (14.0-18.0); IG# 0.02 K/uL (0.00-0.02); LYMPH % 9.6 %; MEAN CELL VOLUME 88.4 fL (80-100); MEAN CORPUSCULAR HEMOGLOBIN 30.3 pg (25-34); MEAN CORPUSCULAR HGB CONC 34.3 g/dl (32-36); MEAN PLATELET VOLUME 10.7 fL (7.4-10.4); MONO ABS # 0.08 K/uL (0.11-0.59); NEUT % 89.2 %; PLATELET COUNT 225 K/uL (130-400); RED CELL DISTRIBUTION WIDTH CV 12.5 % (11.5-14.5); RED CELL DISTRIBUTION WIDTH SD 40.2 fL (36.4-46.3)
[2018-02-22 05:44] LABS: CALCIUM 7.8 mg/dl (8.5-10.1); CREATININE 1.03 mg/dl (0.60-1.40); POTASSIUM 4.5 mmol/L (3.5-5.1)
--- NOTE | 2018-02-22 07:01 | DIAGNOSTIC IMAGING REPORT ---
SOFT TISSUE NECK WITH HISTORY: 42 years-old Male DIFFICULTY SWALLOWING. ANGIOEDEMA? Acute difficulty swallowing with suspected acute angioedema of the airway COMPARISON: CT soft tissue neck 12/16/2017 TECHNIQUE: Multiple axial CT images of the soft tissues of the neck were obtained following the intravenous administration of 119 mL Optiray 320 IV contrast. A dose lowering technique was used consistent with the principals of CURLY. FINDINGS: There is a similar pattern of diffuse submucosal edema pharyngeal tissues which appears similar to slightly progressed from comparison study 12/16/2017 which is again seen involving the nasopharynx, oral pharynx, hypopharynx, epiglottis, aryepiglottic folds, soft palate and uvula and bilateral true vocal folds with partial effacement of the vallecula and piriform sinuses resulting in moderate to severe narrowing of the airway. Subglottic airway is patent. No drainable fluid collections. The parapharyngeal fat planes appear symmetric and well-maintained. No prevertebral soft tissue swelling. The bilateral submandibular and parotid glands appear unremarkable. Homogeneous thyroid. Vasculature about the neck appears unremarkable. Mild medial course about the left ICA. Image intracranial structures demonstrate no acute abnormality. Mild preseptal soft tissue swelling about the bilateral orbits with no post septal inflammatory changes. No adenopathy. Lung apices are clear. Multilevel uncovertebral spurring and facet arthropathy. Mastoid air cells are clear. Mild mucosal thickening of the maxillary sinuses, ethmoid air cells and right frontal sinus with mucosal thickening about the bilateral nasal turbinates also noted. IMPRESSION: 1. Similar pattern of diffuse mucosal edema throughout the pharyngeal tissues, epiglottis and aryepiglottic folds as compared to the comparison study from 12/16/2017 which causes moderate to severe narrowing of the airway. No drainable fluid collections or peritonsillar abscess. These findings are again suspicious for angioedema in the appropriate clinical setting. 2. Mild preseptal periorbital edema. 3. No pathologic adenopathy. 4. Mild paranasal sinus disease. The above report was generated using voice recognition software. It may contain grammatical, syntax or spelling errors. Electronically signed by: Edy Boyd M.D. 02/22/2018 7:00 AM Dictated Date/Time: 02/22/2018 6:52 AM
[2018-02-22 07:08] VITALS: BP 167/107; PULSE 110; TEMP 36.6; O2SAT 22; O2SAT 94
[2018-02-22] MEDS ORDERED: RANITIDINE HCL 150 MG TAB PO SCH (09:00)
[2018-02-22] MEDS ORDERED: METHYLPREDNISOLONE IV 50 MG in SYRINGE 0 ML IV SCH (09:00)
[2018-02-22] MEDS ORDERED: GABAPENTIN 600 MG TAB PO SCH (09:00)
[2018-02-22] MEDS ORDERED: CETIRIZINE HCL 10 MG TAB PO SCH (09:00)
[2018-02-22] MEDS ORDERED: BACLOFEN 10 MG TAB PO SCH (09:00)
[2018-02-22] MEDS ORDERED: MAGNESIUM OXIDE 400 MG TAB PO ONE (09:15)
--- NOTE | 2018-02-22 09:44 | HISTORY & PHYSICAL EXAMINATION ---
DATE OF ADMISSION: 02/22/2018 CHIEF COMPLAINT: Difficulty swallowing. HISTORY OF PRESENT ILLNESS: This is a 42-year-old male with past medical history significant for severe migraine, seizure disorder, mood disorder, posttraumatic stress disorder, tobacco use disorder who presented with difficulty swallowing. Patient states he was eating macaroni cheese when he suddenly could not eat and had some sob initially which is resolved now.EMS was called and brought to ER. En route received epinephrine and solumedrol. currently denies sob though still some difficulty swallowing. Swallowing liquis ok in ER. He had similar dysphagia in November 2017, and the CAT scan showed pharyngitis and epiglottitis, seen by ENT. By that time, ENT felt that it was pharyngitis no epiglottitis at that time and was discharged on antibiotics. Currently, patient complains of headaches, no dizziness, no blurred vision, no earache, no runny nose, no shortness of breath, no cough, no fever, no chills. Appetite is okay. No chest pain, no nausea, no vomiting, no abdominal pain. Normal bowel and bladder movements. Resting comfortably, hemodynamically stable. Recently was in [facility] and on psychiatry meds. QT was prolonged on EKG. ALLERGIES: ASPIRIN, LATEX, NIACIN, CEFTIN. PAST MEDICAL HISTORY: As mentioned above. PAST SURGICAL HISTORY: No surgical history on file MEDICATIONS: Benztropine 1 mg p.o. daily, Thorazine 50 mg at 1 a.m. and 1 p.m. and 500 mg at 9:00 p.m., Effexor 150 mg p.o. daily, Vistaril 100 mg p.o. at bedtime, melatonin 8mg at bedtime, baclofen 10 mg p.o. t.i.d., clonidine 0.5 mg p.o. daily at 4:00, gabapentin 900 mg at 9:00 and 600 mg p.o. b.i.d., Prazosin 4 mg p.o. at bedtime. FAMILY HISTORY: No family history available. SOCIAL HISTORY: Smokes 1 packet a day for 28 years. No alcohol use. Does smoke marijuana. REVIEW OF SYSTEMS: See HPI, all other symptoms negative. PHYSICAL EXAMINATION: GENERAL: Patient is obese, not in distress. VITAL SIGNS: Temperature 36.5, pulse 103, respiratory rate 18, blood pressure 144/109, oxygen saturation 93% on room air. HEENT: No pallor, no icterus. Pupils equal, round, and reactive to light. NECK: Supple. No neck masses. CARDIOVASCULAR: S1 and S2. Regular rate and rhythm. No murmur, no gallop. RESPIRATORY: Normal AP diameter, no accessory muscle use. No wheezing or rales. GASTROINTESTINAL: Abdomen is soft, bowel sounds present, nontender, nondistended. CENTRAL NERVOUS SYSTEM: Non focal LABORATORY DATA: WBC 9.3, hemoglobin 14.7, hematocrit 44.9, platelets 213. Sodium 141, potassium 3.3, chloride 105, bicarbonate 24, BUN 14, creatinine 1.08, serum glucose 148, calcium 8.5, phosphorus 2.9, magnesium 1.9. Troponin I less than 0.015, BNP 6. PT 10.8, INR 1, APTT 24.7. Urinalysis: Trace ketones. Chest x-ray: No acute disease in the chest. EKG shows sinus tachycardia with a heart rate of 110, prolonged QTc 590. ASSESSMENT AND PLAN: This is a 42-year-old male who presents with difficulty swallowing 1. Difficulty swallowing, . He had a similar problem in recent past. At that time, CAT scan showed pharyngitis, Seen by ENT, and was treated with antibiotics. Received epinephrine and stroids.On examination, there is no obvious pharyngeal edema. Will get Ct of soft tissue of the neck.Place him on Solu-Medrol, Zyrtec, and Zantac, and if any findings on the CAT scan, we will consult ENT again. 2. Prolonged QT. Patient is on significant dose of Thorazine , effexor and benztropine. We will hold psychiatry medication and follow the EKG in the a.m. and consult Psychiatry for adjustment of medications. 3. Mood disorder, posttraumatic stress disorder. Medication adjustment by by psychiatry. 4. Hyperlipidemia, hypertension. Continue clonidine. Will follow the lipid profile. 5. Deep venous thrombosis prophylaxis. SCDs. 6. DISPOSITION: Admit to telemetry floor, expect discharge home and follow with family doctor. Level 1 full code. MTDD
--- NOTE | 2018-02-22 10:36 | Progress Note ---
Progress Note Date of Service Feb 22, 2018. Progress Note I saw this patient twice in room 218. He states that he wants Dilaudid for a headache. I explained to him that Dilaudid would be overkill for a headache. He states that he wants to leave against medical advice. I explained about the changes of recurring angioedema, throat closure, shortness of breath and if he signs out and this recurs, could be possible. He understands and insists on discharge against medical advice. He is on room air, in no distress. No hoarseness, no change in voice, states he has no difficulty swallowing. I will discharge him with a medrol dosepak, H1 and H2 elvira. He is agreeable to this. Patient signed AMA papers.
--- NOTE | 2018-02-22 10:38 | Discharge Instructions ---
Discharge Instructions Date of Service Feb 22, 2018. Admission Reason for Admission: Allergic Reaction, Prolonged Qt Interval Discharge Discharge Diagnosis / Problem: Allergic Reaction, possible Angioedema, Prolonged QT Interval Discharge Goals Goal(s): Decrease discomfort, Improve function, Diagnostic testing, Therapeutic intervention Activity Recommendations Activity Limitations: resume your previous activity . Instructions / Follow-Up Instructions / Follow-Up Patient signed out against medical advice. Will put him on a medrol dosepak, Benadryl and Zantac Should have a close follow-up with primary care physician. Current Hospital Diet Patient's current hospital diet: Clear Liquid Diet Discharge Diet Recommended Diet: Full Liquid Diet Pending Studies Studies pending at discharge: no Laboratory Results Hemoglobin A1c Test 12/16/17 04:14 Range/Units Estimated Average Glucose 140 mg/dl Hemoglobin A1c 6.5 H 4.5-5.6 % Lipid Panel Test 02/22/18 05:01 Range/Units Triglycerides Level 103 0-150 mg/dl Cholesterol Level 240 H 0-200 mg/dl HDL Cholesterol 36 mg/dl Cholesterol/HDL Ratio 6.7 LDL Cholesterol, Calculated 183 mg/dl Medical Emergencies . Who to Call and When: Medical Emergencies: If at any time you feel your situation is an emergency, please call 911 immediately. . Non-Emergent Contact Non-Emergency issues call your: Primary Care Provider . . "Provider Documentation" section prepared by Diomedes Jackson. .
[2018-02-22] MEDS ORDERED: ZYR10 PO (10:43)
[2018-02-22] MEDS ORDERED: METH4PAK PO (10:43)
[2018-02-22] MEDS ORDERED: ZNT150 PO (10:43)
[2018-02-22 10:47] VITALS: BP 167/107; PULSE 110; TEMP 36.6; O2SAT 94
--- NOTE | 2018-02-22 10:47 | Psychiatric Consultation ---
Consultation Date of Consultation Feb 22, 2018. Identifying Data 42 yo male with history of bipolar disorder, recently discharged from the [facility]. Admit to medicine for c/o throat tightness and for telemetry given Qtc 590. Chief Complaint as above History of Present Illness No prior psych consult on chart but has been seen in ED few times over past 3 years for depression/aud command ingram. Per liaison, patient was admit to [facility] for same, d/c on 02/12/18 on total 600 mg total daily dose of Thorazine. Initial QTc 590, repeat 452 this am. Hospitalized in November 2017 for similar CC of difficulty swallowing and dx with HTN secondary to supraglottitis. Patient's was at bedside for meeting with liaison, no safety concerns. Patient was adamant that wanted to continue thorazine. No ingram or delusions expressed. Past Psychiatric History Current OP Treatment: psychiatrist (Dr. Ceja, [facility]) Prior Psych Hospitalizations: [place] (few times a year) Access to a Gun: No Past Medication Trials meds listed on prior visits to [facility]: Seroquel, Depakote, Paxil, topamax, neurontin Past Medical/Surgical History (1) Hypertension (2) Low back pain Allergies Allergies: Coded Allergies: Latex (Verified Allergy, Intermediate, rash, 02/03/18) Niacin (Verified Allergy, Intermediate, burning sensation, 02/03/18) Penicillins (Verified Allergy, Intermediate, 02/03/18) "MASSIVE HIVES" Aspirin (Verified Allergy, Unknown, 02/03/18) Home Medications Scheduled Baclofen (Baclofen), 10 MG PO TID Benztropine Mesylate (Benztropine Mesylate), 1 MG PO QD@2100 Cetirizine HCl (All Day Allergy), 10 MG PO QAM Chlorpromazine Hcl (Thorazine), 50 MG PO QD@0100 Chlorpromazine Hcl (Thorazine), 50 MG PO QD@1300 Chlorpromazine Hcl (Thorazine), 500 MG PO QD@2100 Clonidine Hcl (Catapres), 0.1 MG PO QD@1600 Gabapentin (Gabapentin), 900 MG PO QD@2100 Gabapentin (Gabapentin), 600 MG PO BID Hydroxyzine Pamoate (Vistaril), 100 MG PO HS Melatonin-Pyridoxine (Melatonin), 9 MG PO HS Methylprednisolone (Medrol Dosepak), 1 PKT PO DAILY Prazosin Hcl (Prazosin), 4 MG PO HS Ranitidine HCl (Ranitidine HCl), 150 MG PO BID Venlafaxine Hcl (Effexor Extended Rel), 150 MG PO DAILY Family History Patient reports no known family medical history. Smoking Use Smoking Status: Current Every Day Smoker Personal History Work History: [employer] Relationship History: Review of Systems unable to obtain, some concern that patient came seeking dilaudid Examination Vital Signs Vital Signs Past 12 Hours Date Time Temp Pulse Resp B/P (MAP) Pulse Ox O2 Delivery O2 Flow Rate FiO2 02/22/18 08:30 Room Air 02/22/18 07:08 36.6 110 22 167/107 (127) 94 Room Air 02/22/18 04:00 Room Air 02/22/18 03:33 149/107 (121) 02/22/18 01:26 36.5 103 22 163/112 94 Room Air 02/22/18 01:09 103 20 194/114 93 02/21/18 23:10 103 18 144/109 93 Room Air Laboratory Results Last 24 Hours Test 02/21/18 21:00 02/21/18 21:07 02/22/18 05:01 02/22/18 09:23 Urine Color DK YELLOW Urine Appearance CLEAR Urine pH 5.0 Urine Specific [place] > 1.045 Urine Protein 1+ Urine Glucose (UA) NEG Urine Ketones TRACE Urine Occult Blood NEG Urine Nitrite NEG Urine Bilirubin 1+ Urine Urobilinogen NEG Urine Leukocyte Esterase NEG Urine WBC (Auto) 1-5 /hpf Urine RBC (Auto) 0-4 /hpf Urine Hyaline Casts (Auto) 1-5 /lpf Urine Epithelial Cells (Auto) 5-10 /lpf Urine Bacteria (Auto) NEG Urine Crystals CALCIUM OXALATE White Blood Count 9.34 K/uL 8.30 K/uL Red Blood Count 5.06 M/uL 4.75 M/uL Hemoglobin 14.7 g/dL 14.4 g/dL Hematocrit 44.9 % 42.0 % Mean Corpuscular Volume 88.7 fL 88.4 fL Mean Corpuscular Hemoglobin 29.1 pg 30.3 pg Mean Corpuscular Hemoglobin Concent 32.7 g/dl 34.3 g/dl Platelet Count 213 K/uL 225 K/uL Mean Platelet Volume 10.8 fL 10.7 fL Neutrophils (%) (Auto) 52.0 % 89.2 % Lymphocytes (%) (Auto) 39.2 % 9.6 % Monocytes (%) (Auto) 6.4 % 1.0 % Eosinophils (%) (Auto) 1.3 % 0.0 % Basophils (%) (Auto) 0.9 % 0.0 % Neutrophils # (Auto) 4.86 K/uL 7.40 K/uL Lymphocytes # (Auto) 3.66 K/uL 0.80 K/uL Monocytes # (Auto) 0.60 K/uL 0.08 K/uL Eosinophils # (Auto) 0.12 K/uL 0.00 K/uL Basophils # (Auto) 0.08 K/uL 0.00 K/uL RDW Standard Deviation 41.2 fL 40.2 fL RDW Coefficient of Variation 12.8 % 12.5 % Immature Granulocyte % (Auto) 0.2 % 0.2 % Immature Granulocyte # (Auto) 0.02 K/uL 0.02 K/uL Prothrombin Time 10.8 SECONDS Prothromb Time International Ratio 1.0 Activated Partial Thromboplast Time 24.7 SECONDS Partial Thromboplastin Ratio 1.0 Sodium Level 141 mmol/L 137 mmol/L Potassium Level 3.3 mmol/L 4.5 mmol/L Chloride Level 105 mmol/L 105 mmol/L Carbon Dioxide Level 24 mmol/L 23 mmol/L Anion Gap 12.0 mmol/L 9.0 mmol/L Blood Urea Nitrogen 14 mg/dl 11 mg/dl Creatinine 1.08 mg/dl 1.03 mg/dl Est Creatinine Clear Calc Drug Dose 123.2 ml/min 109.6 ml/min Estimated GFR () 97.6 103.4 Estimated GFR (Non- 84.2 89.2 BUN/Creatinine Ratio 12.9 10.6 Random Glucose 148 mg/dl 156 mg/dl Calcium Level 8.5 mg/dl 7.8 mg/dl Phosphorus Level 2.9 mg/dl Magnesium Level 1.9 mg/dl 1.8 mg/dl Troponin I < 0.015 ng/ml Pro-B-Type Natriuretic Peptide 6 pg/ml Triglycerides Level 103 mg/dl Cholesterol Level 240 mg/dl HDL Cholesterol 36 mg/dl LDL Cholesterol, Calculated 183 mg/dl VLDL Cholesterol, Calculated 21 mg/dl Cholesterol/HDL Ratio 6.7 Urine Opiates Screen NEG Urine Methadone, Qualitative NEG Urine Barbiturates NEG Urine Phencyclidine (PCP) Level NEG Ur Amphetamine/Methamphetamine NEG MDMA (Ecstasy) Screen NEG Urine Benzodiazepines Screen NEG Urine Cocaine Metabolite NEG Urine Marijuana (THC) NEG Mental Examination unavailable--patient left AMA prior to noon when I arrived at room to interview him Impression / Recommendations Impression bipolar, recent hospitalization at [facility], no evidence of psychosis or SI per liaison exam ie no indication to petition a 302 for an evaluation Recommendations Effexor and thorazine not ideal medications given HTN and QTc prolongation noted , more likely the thorazine. Had he remained in the hospital I would have recommended restarting thorazine at a lower dose and then repeating and EKG. his symptoms of tongue/throat feeling funny could be related to dystonia and I would have likely increased cogentin to 1 mg BID. he did sign ROIs for liaison nurse prior to leaving AMA and this note will be faxed to his outpatient providers.
--- NOTE | 2018-02-22 10:48 | Discharge Summary ---
Discharge Summary Date of Service Feb 22, 2018. Discharge Summary Admission Date: Feb 22, 2018 at 00:25 Discharge Date: Feb 22, 2018 Discharge Disposition: Home (against) Principal Diagnosis: Dysphagia Possible Allergic Reaction or Angioedema Prolonged QT interval Mood Disorder PTSD HTN HLD Medication Reconciliation New Medications: Methylprednisolone (Medrol Dosepak) 4 Mg José Manuel 1 PKT PO DAILY, #1 PKT Cetirizine HCl (All Day Allergy) 10 Mg Tab 10 MG PO QAM for 10 Days, #10 TAB Ranitidine HCl (Ranitidine HCl) 150 Mg Tab 150 MG PO BID for 10 Days, #20 TAB Continued Medications: Baclofen (Baclofen) 10 Mg Tab 10 MG PO TID Benztropine Mesylate (Benztropine Mesylate) 1 Mg Tab 1 MG PO QD@2100 Chlorpromazine Hcl (Thorazine) 100 Mg Tab 50 MG PO QD@0100 Chlorpromazine Hcl (Thorazine) 100 Mg Tab 50 MG PO QD@1300, TAB Chlorpromazine Hcl (Thorazine) 100 Mg Tab 500 MG PO QD@2100, TAB Clonidine Hcl (Catapres) 0.1 Mg Tab 0.1 MG PO QD@1600 Gabapentin (Gabapentin) 300 Mg Cap 900 MG PO QD@2100 Gabapentin (Gabapentin) 600 Mg Tab 600 MG PO BID TAKE THIS MEDICATION AT 0900 AND 1300 HOURS Hydroxyzine Pamoate (Vistaril) 100 Mg Cap 100 MG PO HS, CAP Melatonin-Pyridoxine (Melatonin) 1 Tab Tab 9 MG PO HS Prazosin Hcl (Prazosin) 2 Mg Cap 4 MG PO HS Venlafaxine Hcl (Effexor Extended Rel) 150 Mg Capcr 150 MG PO DAILY Admission Information HPI (per Admitting provider): DATE OF ADMISSION: 02/22/2018 CHIEF COMPLAINT: Difficulty swallowing. HISTORY OF PRESENT ILLNESS: This is a 42-year-old male with past medical history significant for severe migraine, ____ seizure disorder, mood disorder, posttraumatic stress disorder, ____ disorder who presented with difficulty swallowing. Patient states he was ____ medications, and he currently has difficulty eating, difficulty swallowing, and at that time, he feels short of breath. The shortness of breath has resolved now, but he is unable to swallow solids but he is able to swallow liquids today. He had similar dysphagia in November 2017, and the CAT scan showed pharyngitis and epiglottitis, seen by ENT. By that time, ENT felt that it was pharyngitis ____, no epiglottitis at that time and was discharged on antibiotics. Currently, patient complains of headaches, no dizziness, no blurred vision, no earache, no runny nose, no shortness of breath, no cough, no fever, no chills. Appetite is okay. No chest pain, no nausea, no vomiting, no abdominal pain. Normal bowel and bladder movements. Resting comfortably, hemodynamically stable. Patient has reasonable ____. ALLERGIES: ASPIRIN, LATEX, NIACIN, CEFTIN. PAST MEDICAL HISTORY: As mentioned above. PAST SURGICAL HISTORY: ____. MEDICATIONS: Benztropine 1 mg p.o. daily, Thorazine 50 mg at 1 a.m. and 1 p.m. and ____ mg at 9:00 p.m., Effexor 150 mg p.o. daily, Vistaril 100 mg p.o. at bedtime, melatonin ____ mg at bedtime, baclofen 10 mg p.o. t.i.d., clonidine 0.5 mg p.o. daily at 4:00, gabapentin 900 mg at 9:00 and 600 mg p.o. b.i.d., Prazosin 4 mg p.o. at bedtime. FAMILY HISTORY: No family history available. SOCIAL HISTORY: Smokes 1 packet a day for 28 years. No alcohol use. Does smoke marijuana. REVIEW OF SYSTEMS: See HPI, all other symptoms negative. PHYSICAL EXAMINATION: GENERAL: Patient is obese, not in distress. VITAL SIGNS: Temperature ____, pulse 103, respiratory rate 18, blood pressure ____/109, oxygen saturation ____% on room air. HEENT: No pallor, no icterus. Pupils equal, round, and reactive to light. NECK: Supple. No neck masses. CARDIOVASCULAR: S1 and S2. Regular rate and rhythm. No murmur, no gallop. RESPIRATORY: Normal AP diameter, no accessory muscle use. No wheezing or rales. GASTROINTESTINAL: Abdomen is soft, bowel sounds present, nontender, nondistended. CENTRAL NERVOUS SYSTEM: ____. LABORATORY DATA: WBC 9.3, hemoglobin 14.7, hematocrit 44.9, platelets 213. Sodium 141, potassium 3.3, chloride 105, bicarbonate 24, BUN 14, creatinine 1.08, serum glucose 148, calcium 8.5, ____ phosphorus 2.9, magnesium 1.9. Troponin I less than 0.015, BNP 6. PT 10.8, INR 1, APTT 24.7. Urinalysis: Trace ketones. Chest x-ray: No acute disease in the chest. EKG shows sinus tachycardia with a heart rate of 110, prolonged QT ____. ASSESSMENT AND PLAN: This is a 42-year-old male who presents with difficulty swallowing ____. 1. Difficulty swallowing, ___ dysphagia. He had a similar problem in recent past. At that time, CAT scan showed pharyngitis, ____ by ENT, and was treated with antibiotics. Today, ____. He was given ____ shortness of breath, prednisone in the ER. On examination, there is no pharyngeal edema. ____ soft tissue of the ____ place him on Solu-Medrol, ____, and Zantac, and if any findings on the CAT scan, we will consult ENT again. 2. Prolonged QT. Patient is on significant dose of Thorazine ____ and benztropine. We will follow with medication and follow the EKG in the a.m. and consult ____ for adjustment of medication ____ dose. 3. Mood disorder, posttraumatic stress disorder. Medication adjustment ____ by psychiatry. 4. Hyperlipidemia, hypertension. Continue clonidine. Will follow the lipid profile. 5. Deep venous thrombosis prophylaxis. SCDs. 6. DISPOSITION: Admit to telemetry floor, expect discharge home and follow with family doctor. Level 1 full code. Hospital Course I saw this patient twice in room 218. He states that he wants Dilaudid for a headache. I explained to him that Dilaudid would be overkill for a headache. He states that he wants to leave against medical advice. I explained about the changes of recurring angioedema, throat closure, shortness of breath and if he signs out and this recurs, could be possible. He understands and insists on discharge against medical advice. He is on room air, in no distress. No hoarseness, no change in voice, states he has no difficulty swallowing. I will discharge him with a medrol dosepak, H1 and H2 elvira. He is agreeable to this. Patient signed AMA papers. Total time spent on discharge = 35 minutes This includes examination of the patient, discharge planning, medication reconciliation, and communication with other providers. Discharge Instructions Patient signed out against medical advice. Will put him on a medrol dosepak, Benadryl and Zantac Should have a close follow-up with primary care physician.
[2018-02-22] MEDS ORDERED: CLONIDINE HCL 0.1 MG TAB PO SCH (16:00)
[2018-02-22] MEDS ORDERED: GABAPENTIN 300 MG CAP PO SCH (21:00)
[2018-02-22] MEDS ORDERED: PRAZOSIN HCL 1 MG CAP PO SCH (21:00)
== END 2018-02-22 11:00 | disposition left against medical advice (07) | DRG 916 ==
LOC: EDBD 20:44 → C.EDA 20:45 → C.2T 02-22 00:25 → EDBEDREQ 02-22 00:30 → ENRESERV 02-22 00:55
PROVIDERS: ADMIT Internal Medicine; ATTEND Family Medicine
DX: T78.3XXA Angioneurotic edema, initial encounter (principal); R13.10 Dysphagia, unspecified; J02.9 Acute pharyngitis, unspecified; F41.9 Anxiety disorder, unspecified; F31.9 Bipolar disorder, unspecified; G40.909 Epilepsy, unspecified, not intractable, without status epilepticus; I10 Essential (primary) hypertension; Z86.73 Personal history of transient ischemic attack (TIA), and cerebral infarction without residual deficits; Z91.040 Latex allergy status; Z88.0 Allergy status to penicillin; E87.6 Hypokalemia; F43.10 Post-traumatic stress disorder, unspecified; Z88.6 Allergy status to analgesic agent; F17.210 Nicotine dependence, cigarettes, uncomplicated; E78.5 Hyperlipidemia, unspecified; M54.5 Low back pain; Y92.019 Unspecified place in single-family (private) house as the place of occurrence of the external cause; X58.XXXA Exposure to other specified factors, initial encounter

== ENCOUNTER 2018-10-21 22:32 | Observation (INO) ==
[2018-10-21 22:49] LABS: Basophils # (auto) 0.03 K/uL (0-0.2); Basophils % (auto) 0.2 %; Eosinophils # (auto) 0.15 K/uL (0-0.5); Eosinophils % (auto) 1.2 %; Hematocrit (blood only) 41.1 % (42-52); Hemoglobin 13.9 g/dL (14.0-18.0); Immature Granulocytes # (auto) 0.05 K/uL (0.00-0.02); Immature Granulocytes % (auto) 0.4 %; Lymphocytes # (auto) 3.55 K/uL (1.2-3.4); Lymphocytes % (auto) 28.2 %; Mean Corpuscular Hgb Conc 33.8 g/dL (32-36); Mean Corpuscular Volume 86.5 fL (80-100); Mean Platelet Volume 11.3 fL (7.4-10.4); Monocytes # (auto) 0.82 K/uL (0.11-0.59); Monocytes % (auto) 6.5 %; Neutrophils # (auto) 7.99 K/uL (1.4-6.5); Neutrophils % (auto) 63.5 %; Platelet Count 243 K/uL (130-400); RDW Coefficient of Variation 13.2 % (11.5-14.5); RDW Standard Deviation 41.8 fL (36.4-46.3); Red Blood Count 4.75 M/uL (4.7-6.1); White Blood Count 12.59 K/uL (4.8-10.8)
[2018-10-21] MEDS ORDERED: NITROGLYCERIN 2% OINTMENT 30GM TUBE EXT STA (22:52)
[2018-10-21] MEDS ORDERED: ACETAMINOPHEN 500 MG TAB PO STA (22:52)
[2018-10-21 23:12] LABS: Alanine Aminotransferase 50 U/L (12-78); Albumin Level 3.7 gm/dl (3.4-5.0); Aspartate Aminotransferase 18 U/L (15-37); BUN Creatinine Ratio 17.5 (10-20); Blood Urea Nitrogen 18 mg/dl (7-18); Calcium 9.1 mg/dl (8.5-10.1); Carbon Dioxide 22 mmol/L (21-32); Chloride 110 mmol/L (98-107); Creatinine Clr Calc Pharmacy 131.5 ml/min; Est GFR (African American) 103.4; Est GFR (Non-African American) 89.2; Glucose 84 mg/dl (70-99); Sodium 140 mmol/L (136-145)
[2018-10-21 23:17] LABS: Albumin Globulin Ratio 0.9 (0.9-2); Alkaline Phosphatase 92 U/L (45-117); Bilirubin,Total 0.2 mg/dl (0.2-1); Globulin 4.1 gm/dl (2.5-4.0); Total Protein 7.8 gm/dl (6.4-8.2); Troponin I < 0.015 ng/ml (0-0.045)
[2018-10-22] MEDS ORDERED: HYDROmorphone INJ 0.5 MG/0.5 ML SYR IV STA ×2 (00:05→00:50)
[2018-10-22 00:31] LABS: Partial Thromboplastin Time 25.9 Seconds (21.0-31.0)
[2018-10-22 00:37] LABS: Magnesium 1.8 mg/dl (1.8-2.4)
--- NOTE | 2018-10-22 00:38 | Emergency Department Note ---
Entered by Jonny Ngo acting as a scribe for Puma Whyte MD ED Provider Note CHIEF COMPLAINT: Chest pain HISTORY OF PRESENT ILLNESS: The patient is a 42 year old male who presents to the Emergency Room with complaints of constant chest pain that began 1 hour ago. The patient states that he has been dealing with bronchitis for the past 2 weeks and has been taking Mucinex daily. This evening, 1 hour ago, he developed chest pain that radiated into his left arm and left neck. There was associated shortness of breath as well. He took 2 full-dose Aspirin when the pain started and then called for EMS. EMS administered 3 Nitroglycerin tablets which did improve his pain from a 9/10 in severity to a 6/10. The patient also notes that he has not had a bowel movement in 2 weeks and is experiencing some lower abdominal pain. He has had issues with constipation for years. He denies any nausea or vomiting. The patient denies any history of [place]. Pt denies LOC, headache, fevers, chills, diaphoresis, visual changes, back pain, melena, hematochezia, urinary symptoms, numbness, weakness, lymphadenopathy, rash, or other complaints. Review of the patient's EMR shows that the I saw the patient personally in March of last year. He came in for abdominal pain and appeared to have partial SBO on CT. The hospitalist was consulted for admission. The patient left AMA after he met with the hospitalist. REVIEW OF SYSTEMS: See HPI for pertinent positives and negatives. A total of ten systems were reviewed and were otherwise negative. PMHx/PSHx: Kidney Stones Vasectomy Tonsillectomy Cholesyctectomy PTSD/Mood disorder Seizure Disorder GERD HLD Depression Anxiety HTN Allergic Reaction SOCIAL HISTORY: Patient lives at home with . PHYSICAL EXAM: GENERAL: Awake, alert, uncomfortable appearing, in no distress HENT: Normocephalic, atraumatic. Oropharynx unremarkable. EYES: PERRL. Normal conjunctiva. Sclera non-icteric. NECK: Inspection normal. Non-tender. Supple. No nuchal rigidity. FROM. No masses. RESPIRATORY: Diminished breath sounds bilaterally. No wheezes. No rales. Normal respiratory effort. CARDIAC: Borderline tachycardic rate. Normal rhythm. No murmurs. No rubs. Extremities warm and well perfused. Pulses equal. No JVD. GI: Soft, non-distended. No tenderness to palpation. No rebound or guarding. No masses. RECTAL: Deferred. MUSCULOSKELETAL: Atraumatic. Chest examination reveals no tenderness. The back is symmetrical on inspection without obvious abnormality. There is no CVA tenderness to palpation. No joint edema. LOWER EXTREMITIES: Calves are equal size bilaterally and non-tender. No edema. No discoloration. NEURO: Normal sensorium. No sensory or motor deficits noted. SKIN: No rash or jaundice noted. EMERGENCY DEPARTMENT COURSE: 2245: The patient was evaluated in room B12B, and a complete history and physical examination were performed. 0004: I checked on the patient at this time. He complains that he has a headache from the Nitro. His chest pain is resolved. 0006: I reviewed the patient's [facility] He will evaluate the patient for further management. MEDICAL DECISION MAKING: Triage Nursing notes reviewed. The patient's presentation and history were concerning for chest pain. Etiologies such as cardiac ischemia, myocarditis, pericarditis, aortic dissection, pulmonary embolism, pneumonia, pneumothorax, musculoskeletal, infections, gastrointestinal, as well as others were entertained. Patient was evaluated. He had moderate improvement of his symptoms with nitro prehospital. ECG showed nonspecific changes. No acute ST elevation or depression. The patient had Nitropaste applied. He was noting a headache from the nitroglycerin and was given Tylenol. He was still having headache after his chest pain resolved. He was given a small dose of IV Dilaudid. The patient will need further management in the hospital. His CBC shows a slight leukocytosis. Chemistry panel was unremarkable and troponin was negative. D- dimer was negative as well. I discussed further management in the hospital with the patient and he was in agreement. He has multiple cardiac risk factors. Consultation was made with the [facility] service. The patient was evaluated in the ER for further management. IMPRESSION: Substernal chest pain. PLAN: Admitted to [facility]. The scribe's documentation has been prepared under my direction and personally reviewed by me in its entirety. I confirm that the note above accurately reflects all work, treatment, procedures, and medical decision making performed by me. Impression & Plan Substernal chest pain Past Med/Surg History Medical History Kidney stones (Resolved) Mood disorder (Chronic) PTSD (post-traumatic stress disorder) (Chronic) Seizure disorder (Chronic) Migraine (Chronic) GERD (gastroesophageal reflux disease) (Chronic) HLD (hyperlipidemia) (Chronic) Bipolar disease, chronic (Chronic) Depression (Chronic) Anxiety (Chronic) Hypertension (Chronic) Back pain (Chronic) Anxiety (Chronic) Depression (Chronic) HTN (hypertension) (Chronic) Surgical History History of vasectomy (Resolved) Hx of tonsillectomy (Resolved) History of cholecystectomy (Resolved) History of cholecystectomy (Resolved) Family History Other Unknown family medical history Social History Preferred Language: Arabic Communication Ability: Effective Beliefs That Will Affect Care: None Current Living Situation: Spouse Feels Safe at Home: Yes Smoking Status: Current every day smoker Tobacco Type: cigarettes Cigarettes Per Day: 1ppd Hx Alcohol Use: No Hx Substance Use: Yes (marijuana daily) substance use type: marijuana Substance Use Type Other:: reports he is in the process of getting medical marijuana prescribed Results & Data Vital Signs Vital Signs - 24 hr 10/21/18 22:42 10/21/18 22:54 10/21/18 23:01 Temperature 36.8 C Temperature Source Oral Sepsis Recent Fever Within 48 Hours No Sepsis New/Unexplained Change in Mental Status No Sepsis Action Taken by Nursing No Action Required Pulse Rate 96 H 93 H Respiratory Rate 24 14 Respiratory Effort / Characteristics Non-Labored Spontaneous Respiratory Depth Normal Blood Pressure 152/90 H 128/85 Blood Pressure Mean 110 99 Pulse Oximetry 94 94 Oxygen Delivery Method Room Air Room Air Room Air 10/21/18 23:30 10/22/18 00:00 Temperature Temperature Source Sepsis Recent Fever Within 48 Hours Sepsis New/Unexplained Change in Mental Status Sepsis Action Taken by Nursing Pulse Rate 90 94 H Respiratory Rate 16 19 Respiratory Effort / Characteristics Respiratory Depth Blood Pressure 120/93 140/93 Blood Pressure Mean 102 108 Pulse Oximetry 94 96 Oxygen Delivery Method Room Air Room Air Home Medications Current Medication List: was personally reviewed by me Laboratory Data Attestation: I reviewed the patient's lab results. Result diagrams: 10/21/18 22:15 10/21/18 22:15 Lab Results 10/21/18 10/21/18 10/21/18 Range/Units 22:15 22:15 22:15 WBC 12.59 H (4.8-10.8) K/uL RBC 4.75 (4.7-6.1) M/uL Hgb 13.9 L (14.0-18.0) g/dL Hct 41.1 L (42-52) % MCV 86.5 (80-100) fL MCH 29.3 (25-34) pg MCHC 33.8 (32-36) g/dL RDW Std Deviation 41.8 (36.4-46.3) fL RDW Coeff of Trang 13.2 (11.5-14.5) % Plt Count 243 (130-400) K/uL MPV 11.3 H (7.4-10.4) fL Immature Gran % (Auto) 0.4 % Neut % (Auto) 63.5 % Lymph % (Auto) 28.2 % [place] % (Auto) 6.5 % Eos % (Auto) 1.2 % Baso % (Auto) 0.2 % Immature Gran # (Auto) 0.05 H (0.00-0.02) K/uL Neut # (Auto) 7.99 H (1.4-6.5) K/uL Lymph # (Auto) 3.55 H (1.2-3.4) K/uL [place] # (Auto) 0.82 H (0.11-0.59) K/uL Eos # (Auto) 0.15 (0-0.5) K/uL Baso # (Auto) 0.03 (0-0.2) K/uL APTT 25.9 (21.0-31.0) Seconds PTT Ratio 1.0 POC D-Dimer (0-450) ng/mlFEU Sodium 140 (136-145) mmol/L Potassium 4.0 (3.5-5.1) mmol/L Chloride 110 H (98-107) mmol/L Carbon Dioxide 22 (21-32) mmol/L Anion Gap 8.0 (3-11) BUN 18 (7-18) mg/dl Creatinine 1.03 (0.6-1.4) mg/dl Est Cr Clr Drug Dosing 131.5 ml/min Est GFR ( Amer) 103.4 Est GFR (Non-Af Amer) 89.2 BUN/Creatinine Ratio 17.5 (10-20) Glucose 84 (70-99) mg/dl Calcium 9.1 (8.5-10.1) mg/dl Total Bilirubin 0.2 (0.2-1) mg/dl AST 18 (15-37) U/L ALT 50 (12-78) U/L Alkaline Phosphatase 92 (45-117) U/L POC Troponin I (0-0.045) ng/ml Troponin I < 0.015 (0-0.045) ng/ml Total Protein 7.8 (6.4-8.2) gm/dl Albumin 3.7 (3.4-5.0) gm/dl Globulin 4.1 H (2.5-4.0) gm/dl Albumin/Globulin Ratio 0.9 (0.9-2) Lipase 92 (73-393) U/L 10/21/18 Range/Units 22:46 WBC (4.8-10.8) K/uL RBC (4.7-6.1) M/uL Hgb (14.0-18.0) g/dL Hct (42-52) % MCV (80-100) fL MCH (25-34) pg MCHC (32-36) g/dL RDW Std Deviation (36.4-46.3) fL RDW Coeff of Trang (11.5-14.5) % Plt Count (130-400) K/uL MPV (7.4-10.4) fL Immature Gran % (Auto) % Neut % (Auto) % Lymph % (Auto) % [place] % (Auto) % Eos % (Auto) % Baso % (Auto) % Immature Gran # (Auto) (0.00-0.02) K/uL Neut # (Auto) (1.4-6.5) K/uL Lymph # (Auto) (1.2-3.4) K/uL [place] # (Auto) (0.11-0.59) K/uL Eos # (Auto) (0-0.5) K/uL Baso # (Auto) (0-0.2) K/uL APTT (21.0-31.0) Seconds PTT Ratio POC D-Dimer 330 (0-450) ng/mlFEU Sodium (136-145) mmol/L Potassium (3.5-5.1) mmol/L Chloride (98-107) mmol/L Carbon Dioxide (21-32) mmol/L Anion Gap (3-11) BUN (7-18) mg/dl Creatinine (0.6-1.4) mg/dl Est Cr Clr Drug Dosing ml/min Est GFR ( Amer) Est GFR (Non-Af Amer) BUN/Creatinine Ratio (10-20) Glucose (70-99) mg/dl Calcium (8.5-10.1) mg/dl Total Bilirubin (0.2-1) mg/dl AST (15-37) U/L ALT (12-78) U/L Alkaline Phosphatase (45-117) U/L POC Troponin I < 0.03 (0-0.045) ng/ml Troponin I (0-0.045) ng/ml Total Protein (6.4-8.2) gm/dl Albumin (3.4-5.0) gm/dl Globulin (2.5-4.0) gm/dl Albumin/Globulin Ratio (0.9-2) Lipase (73-393) U/L Administered Medications Discontinued Medications Acetaminophen (Tylenol) 1,000 mg PO NOW STA Stop: 10/21/18 22:53 Last Admin: 10/21/18 23:00 Dose: 1,000 mg Documented by: [id number] Hydromorphone HCl (Dilaudid) 0.5 mg IV NOW STA Stop: 10/22/18 00:06 Last Admin: 10/22/18 00:19 Dose: 0.5 mg Documented by: [id number] Nitroglycerin (Nitro-Bid 2%) 0.5 inch EXT NOW STA Stop: 10/21/18 22:53 Last Admin: 10/21/18 23:00 Dose: 0.5 inch Documented by: [id number] Imaging Data Attestation: I personally reviewed and interpreted this imaging study as follows: My Impression: CHEST X-RAY: Normal cardiac silhouette. No bony abnormalities. Normomediastinum, no acute infiltrate, no pulmonary pathology. ECG Data Attestation: I personally reviewed and interpreted this ECG as follows: Indication: chest pain Rate (beats per minute): 100 Rhythm: normal sinus Findings: + other (Prolonged QTC 508 ms) and + nonspecific-ST abn; no PVC and no ST elevation Blood Pressure Blood Pressure Findings: Elevated blood pressure Blood Pressure Disposition: further management by hospitalist Discharge Plan Visit Data Chief Complaint: Chest Pain Stated Complaint: CHEST PAIN, SOB ED Provider: Puma Whyte Discharge Problem: Substernal chest pain Patient Disposition: Being Evaluated by Hospitalist Forms Stand Alone Forms: Call Back Authorization, My [facility] Prescriptions Prescriptions: No Action clonidine HCl 0.1 mg tablet 1 tab PO DAILY@1600 RF: 0 chlorpromazine 100 mg tablet 100 mg PO BID RF: 0 venlafaxine 150 mg capsule,extended release 24hr 150 mg PO QAM RF: 0 melatonin 3 mg tablet 9 mg PO HS RF: 0 baclofen 10 mg tablet 10 mg PO TID RF: 0 ranitidine HCl 150 mg tablet 150 mg PO BID PRN (Reason: Acid Reflux) RF: 0 prazosin 2 mg capsule 4 mg PO HS RF: 0 benztropine 1 mg Tablet 1 mg PO DAILY RF: 0 gabapentin 300 mg Capsule 300 mg PO TID RF: 0 chlorpromazine 100 mg tablet 500 mg PO HS RF: 0 aspirin 325 mg Tablet,Delayed Release (Dr/Ec) 650 mg PO DAILY PRN (Reason: Pain) RF: 0 gabapentin [Neurontin] 800 mg tablet 800 mg PO TID RF: 0 diphenhydramine HCl [Benadryl] 25 mg Capsule 75 mg PO HS RF: 0 calcium carbonate [Tums] 200 mg calcium (500 mg) Tablet,Chewable 400 mg PO BID PRN (Reason: Acid Reflux) RF: 0 Referrals Referrals: Yvon Burleson MD [Primary Care Provider] - The scribe's documentation has been prepared under my direction and personally reviewed by me in its entirety. I confirm that the note above accurately reflects all work, treatment, procedures, and medical decision making performed by me.
--- NOTE | 2018-10-22 00:50 | History & Physical Report ---
Date of Service October 22, 2018 Assessment & Plan (1) Substernal chest pain: Possible ACS hx posttraumatic CVA as per records seizure disorder, stable mood disorder/ PTSD/ anxiety at baseline as per patient ongoing tobacco abuse New onset anemia, possibly from slow LGIB, hx diverticulosis/hemorrhoids on recent colonoscopy Abdominal pain with constipation OBS Medical telemetry Follow troponin Aspirin for secondary CAD prevention until ACS ruled out DSE if a.m. troponin unremarkable Cardiology consult if a.m. troponin with progression CT abdomen pelvis RE abdominal pain with constipation Bowel regimen Nicotine patch as needed DVT prophylaxis. Lovenox subcu Full code History of Present Illness Chief Complaint: Chest pain Primary Care Provider: Yvon Burleson MD History obtained from patient, family, and records. Medical history significant for posttraumatic CVA, seizure disorder, mood disorder, PTSD, anxiety, ongoing tobacco abuse, hx diverticulosis/hemorrhoids on colonoscopy. Recent confinement March 2018 for constipation symptoms. Last night patient was watching television when he experienced achy substernal discomfort going to the left arm with some shortness of breath. No previous episodes. Patient took home aspirin at home. Some relief with nitroglycerin given by EMS. Nitropaste placed at the ER. Patient currently complaining of a headache. Patient also complaining of achy generalized abdominal discomfort, last bowel movement was 2 weeks ago. Denies recent black or bloody stools. 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 Allergies Allergy/AdvReac Type Severity Reaction Status Date / Time latex Allergy Intermediate rash Verified 10/21/18 23:10 niacin Allergy Intermediate burning Verified 10/21/18 23:10 sensation Penicillins Allergy Intermediate Unknown Verified 10/21/18 23:10 aspirin Allergy Unknown Unknown Verified 10/21/18 23:10 Home Medications Home Medications Medication Instructions Recorded Confirmed Type baclofen 10 mg PO TID 04/06/18 10/21/18 History benztropine 1 mg PO DAILY 04/06/18 10/21/18 History chlorpromazine 100 mg PO BID 04/06/18 10/21/18 History clonidine HCl 1 tab PO DAILY@1600 04/06/18 10/21/18 History gabapentin 300 mg PO TID 04/06/18 10/21/18 History melatonin 9 mg PO HS 04/06/18 10/21/18 History prazosin 4 mg PO HS 04/06/18 10/21/18 History ranitidine HCl 150 mg PO BID PRN 04/06/18 10/21/18 History venlafaxine 150 mg PO QAM 04/06/18 10/21/18 History calcium carbonate [Tums] 400 mg PO BID PRN 10/21/18 10/21/18 History chlorpromazine 500 mg PO HS 10/21/18 10/21/18 History diphenhydramine HCl [Benadryl] 75 mg PO HS 10/21/18 10/21/18 History gabapentin [Neurontin] 800 mg PO TID 10/21/18 10/21/18 History sennosides-docusate sodium 1 tab PO DAILY #14 tab 10/22/18 Rx [Senokot-S] Past Med/Surg History Medical History Kidney stones (Resolved) Mood disorder (Chronic) PTSD (post-traumatic stress disorder) (Chronic) Seizure disorder (Chronic) Migraine (Chronic) GERD (gastroesophageal reflux disease) (Chronic) HLD (hyperlipidemia) (Chronic) Bipolar disease, chronic (Chronic) Depression (Chronic) Anxiety (Chronic) Hypertension (Chronic) Back pain (Chronic) Anxiety (Chronic) Depression (Chronic) HTN (hypertension) (Chronic) Surgical History History of vasectomy (Resolved) Hx of tonsillectomy (Resolved) History of cholecystectomy (Resolved) History of cholecystectomy (Resolved) Family History Other Unknown family medical history Social History Preferred Language: Russian Communication Ability: Effective 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 Beliefs That Will Affect Care: Church Church Beliefs: anabaptism Current Living Situation: Spouse Other Information That Helps Us Care for You: No Feels Safe at Home: Yes Safety Concerns: Feels Safe At This Time Smoking Status: Current every day smoker Tobacco Type: cigarettes Cigarettes Per Day: 10 Do You Dip or Chew Tobacco: No Second Hand Exposure: No Tobacco Cessation Education Requested by Patient: No Hx Alcohol Use: No (hx rehab in his 20's) Hx Substance Use: Yes (marijuana daily) substance use type: marijuana Substance Use Type Other:: reports he is in the process of getting medical marijuana prescribed Review of Systems Review of Systems: As per HPI, all 10 systems reviewed, all other ROS negative Physical Exam Physical Exam: GENERAL: Anxious, obese, looks older than stated age, unkempt, no respiratory distress SKIN: Pallor, warm HEENT: Partial alopecia, pale palpebral conjunctivae, no ptosis, dry buccal mucosa NECK : Supple, short neck, no tenderness CHEST : Decreased breath sounds, no tenderness HEART : RRR, no obvious murmurs ABDOMEN: distention, no overt tenderness EXTREMITIES : minimal LE swelling, no tenderness, no other conspicuous deformities noted NEUROLOGIC : Coherent, no facial asymmetry, no other gross focality Results & Data Vital Signs (Past 12 Hours) Vital Signs Temp Pulse Resp BP Pulse Ox 10/22/18 00:30 84 16 122/96 97 10/22/18 00:00 94 H 19 140/93 96 10/21/18 23:30 90 16 120/93 94 10/21/18 23:01 93 H 14 128/85 94 10/21/18 22:42 36.8 C 96 H 24 152/90 H 94 Laboratory Results Laboratory Results WBC 12.59 K/uL (4.8-10.8) H 10/21/18 22:15 RBC 4.75 M/uL (4.7-6.1) 10/21/18 22:15 Hgb 13.9 g/dL (14.0-18.0) L 10/21/18 22:15 Hct 41.1 % (42-52) L 10/21/18 22:15 MCV 86.5 fL (80-100) 10/21/18 22:15 MCH 29.3 pg (25-34) 10/21/18 22:15 MCHC 33.8 g/dL (32-36) 10/21/18 22:15 RDW Std Deviation 41.8 fL (36.4-46.3) 10/21/18 22:15 RDW Coeff of Trang 13.2 % (11.5-14.5) 10/21/18 22:15 Plt Count 243 K/uL (130-400) 10/21/18 22:15 MPV 11.3 fL (7.4-10.4) H 10/21/18 22:15 Immature Gran % (Auto) 0.4 % 10/21/18 22:15 Neut % (Auto) 63.5 % 10/21/18 22:15 Lymph % (Auto) 28.2 % 10/21/18 22:15 [place] % (Auto) 6.5 % 10/21/18 22:15 Eos % (Auto) 1.2 % 10/21/18 22:15 Baso % (Auto) 0.2 % 10/21/18 22:15 Immature Gran # (Auto) 0.05 K/uL (0.00-0.02) H 10/21/18 22:15 Neut # (Auto) 7.99 K/uL (1.4-6.5) H 10/21/18 22:15 Lymph # (Auto) 3.55 K/uL (1.2-3.4) H 10/21/18 22:15 [place] # (Auto) 0.82 K/uL (0.11-0.59) H 10/21/18 22:15 Eos # (Auto) 0.15 K/uL (0-0.5) 10/21/18 22:15 Baso # (Auto) 0.03 K/uL (0-0.2) 10/21/18 22:15 APTT 25.9 Seconds (21.0-31.0) 10/21/18 22:15 PTT Ratio 1.0 10/21/18 22:15 POC D-Dimer 330 ng/mlFEU (0-450) 10/21/18 22:46 Sodium 140 mmol/L (136-145) 10/21/18 22:15 Potassium 4.0 mmol/L (3.5-5.1) 10/21/18 22:15 Chloride 110 mmol/L (98-107) H 10/21/18 22:15 Carbon Dioxide 22 mmol/L (21-32) 10/21/18 22:15 Anion Gap 8.0 (3-11) 10/21/18 22:15 BUN 18 mg/dl (7-18) 10/21/18 22:15 Creatinine 1.03 mg/dl (0.6-1.4) 10/21/18 22:15 Est Cr Clr Drug Dosing 131.5 ml/min 10/21/18 22:15 Est GFR ( Amer) 103.4 10/21/18 22:15 Est GFR (Non-Af Amer) 89.2 10/21/18 22:15 BUN/Creatinine Ratio 17.5 (10-20) 10/21/18 22:15 Glucose 84 mg/dl (70-99) 10/21/18 22:15 Calcium 9.1 mg/dl (8.5-10.1) 10/21/18 22:15 Magnesium 1.8 mg/dl (1.8-2.4) 10/21/18 22:15 Total Bilirubin 0.2 mg/dl (0.2-1) 10/21/18 22:15 AST 18 U/L (15-37) 10/21/18 22:15 ALT 50 U/L (12-78) 10/21/18 22:15 Alkaline Phosphatase 92 U/L (45-117) 10/21/18 22:15 POC Troponin I < 0.03 ng/ml (0-0.045) 10/21/18 22:46 Troponin I < 0.015 ng/ml (0-0.045) 10/21/18 22:15 Total Protein 7.8 gm/dl (6.4-8.2) 10/21/18 22:15 Albumin 3.7 gm/dl (3.4-5.0) 10/21/18 22:15 Globulin 4.1 gm/dl (2.5-4.0) H 10/21/18 22:15 Albumin/Globulin Ratio 0.9 (0.9-2) 10/21/18 22:15 Lipase 92 U/L (73-393) 10/21/18 22:15 TSH 2.380 uIu/ml (0.300-4.500) 10/21/18 22:15 Diagnostic Findings Chest x-ray as per my interpretation: No acute pathology EKG as per my interpretation : Rate 100, NSR, diffuse T wave flattening
[2018-10-22] MEDS ORDERED: PROMETHAZINE HCL 12.5 MG in SODIUM CHLORIDE 0.9% 50 ML IV PRN (00:56)
[2018-10-22] MEDS ORDERED: LACTULOSE SYRUP 20 GM/30 ML UDC PO STA ×2 (00:56→04:55)
[2018-10-22] MEDS ORDERED: ACETAMINOPHEN 325 MG TAB PO PRN (00:56)
[2018-10-22] MEDS ORDERED: NITROGLYCERIN SL 0.4 MG/TAB TAB SL PRN (00:56)
[2018-10-22] MEDS ORDERED: HYDROmorphone INJ 0.5 MG/0.5 ML SYR IV PRN (00:56)
[2018-10-22] MEDS ORDERED: OXYCODONE HCL IR 5 MG TAB (IMMEDIATE RELEASE) PO PRN (00:56)
[2018-10-22] MEDS ORDERED: POLYETHYLENE (MIRALAX) 17 GM PACK PO PRN (00:56)
[2018-10-22] MEDS ORDERED: DOCUSATE SODIUM/SENNA 50/8.6MG TAB PO SCH (01:00)
[2018-10-22] MEDS ORDERED: D5W AND 1/2NSS 1,000 ML IV SCH (01:00)
[2018-10-22 01:37] LABS: Reticulocytes # 0.09 10^6/uL (0.02-0.10)
[2018-10-22] MEDS ORDERED: IOVERSOL 100ml IV PRN (01:52)
[2018-10-22 03:56] VITALS: O2SAT 95
[2018-10-22] MEDS ORDERED: LINACLOTIDE 72 MCG CAPSULE PO SCH (05:00)
--- NOTE | 2018-10-22 06:21 | XRay Report ---
XR chest 1V portable HISTORY: 42 years-old Male Chest Pain acute atypical chest pain COMPARISON: Chest radiograph 02/21/2018 TECHNIQUE: Portable AP view of the chest FINDINGS: Cardiomediastinal and hilar silhouettes are within normal limits. There is no pneumothorax, pleural e ffusion, focal airspace consolidation or overt pulmonary edema. Bones of the chest appear grossly int act. IMPRESSION: No acute process. The above report was generated using voice recognition software. It may contain grammatical, syntax o r spelling errors. Electronically signed by: Edy Boyd M.D. 10/22/2018 6:20 AM
[2018-10-22 07:16] LABS: Basophils # (auto) 0.03 K/uL (0-0.2); Basophils % (auto) 0.3 %; Eosinophils # (auto) 0.15 K/uL (0-0.5); Eosinophils % (auto) 1.3 %; Hematocrit (blood only) 44.7 % (42-52); Hemoglobin 15.1 g/dL (14.0-18.0); Immature Granulocytes # (auto) 0.06 K/uL (0.00-0.02); Immature Granulocytes % (auto) 0.5 %; Lymphocytes # (auto) 3.56 K/uL (1.2-3.4); Lymphocytes % (auto) 29.7 %; Mean Corpuscular Hgb Conc 33.8 g/dL (32-36); Mean Corpuscular Volume 86.5 fL (80-100); Mean Platelet Volume 11.1 fL (7.4-10.4); Monocytes # (auto) 0.73 K/uL (0.11-0.59); Monocytes % (auto) 6.1 %; Neutrophils # (auto) 7.47 K/uL (1.4-6.5); Neutrophils % (auto) 62.1 %; Platelet Count 258 K/uL (130-400); RDW Coefficient of Variation 13.5 % (11.5-14.5); RDW Standard Deviation 42.4 fL (36.4-46.3); Red Blood Count 5.17 M/uL (4.7-6.1)
[2018-10-22 07:26] LABS: Prothrombin Time 10.7 Seconds (9.0-12.0)
--- NOTE | 2018-10-22 07:38 | CT Scan Report ---
CT abd pelvis IV con only CLINICAL HISTORY: 42 years-old Male presenting with generalized abdominal pain, lower abdominal pain, no bowel movement for 2 weeks. TECHNIQUE: Multidetector CT of the abdomen and pelvis was performed after the administration of intra venous contrast. IV contrast: 94 mL of Optiray 320. One or more dose lowering techniques were used co nsistent with the principles of ALARA (as low as reasonably achievable), including automatic exposure control, mA or kV adjustment to individual patient size, and/or use of iterative reconstruction. COMPARISON: 04/06/2018. CT DOSE (mGy.cm): The estimated cumulative dose is 2084.19 mGy.cm. 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 Lung bases: Normal heart size. No pericardial or pleural effusion. Minimal dependent changes likely a telectasis. Liver: Normal morphology. Irregular hypoattenuation along the gallbladder fossa may relate to retract ion injury unchanged from prior. No focal lesion. Patent hepatic vasculature. Biliary: No intrahepatic or extrahepatic biliary ductal dilatation. Gallbladder surgically absent. Pancreas: Mild parenchymal atrophy. Spleen: Normal. Adrenal glands: Normal. Kidneys and ureters: Normal. No hydronephrosis. Bladder: Normal. Pelvic organs: The prostate is either absent or atrophic. Residual seminal vesicles normal. Bowel: Mild stool burden throughout normal caliber colon. The stool burden is predominantly in the le ft and transverse colon. Limited diverticulosis of the proximal to mid sigmoid colon without wall thi ckening or pericolonic inflammatory change. Fluid is noted in the cecum. The appendix is normal. No d istention of small bowel. Peritoneal cavity: No free fluid or intraperitoneal gas. Lymph nodes: No enlarged lymph nodes in the abdomen or pelvis. Vasculature: Atherosclerosis of the normal caliber abdominal aorta. IVC patent. Abdominal wall: Normal. Musculoskeletal: Normal. IMPRESSION: 1. Mild stool burden predominantly in the left and transverse colon. No bowel obstruction. No acute intra-abdominal pathology. 2. Atrophic or absent prostate. Electronically signed by: Gordo Aragon M.D. 10/22/2018 7:37 AM
[2018-10-22 07:45] VITALS: BP 133/93; TEMP 98.4
[2018-10-22 07:50] LABS: BUN Creatinine Ratio 12.1 (10-20); Blood Urea Nitrogen 16 mg/dl (7-18); Calcium 9.2 mg/dl (8.5-10.1); Carbon Dioxide 18 mmol/L (21-32); Chloride 110 mmol/L (98-107); Cholesterol 269 mg/dl (0-200); Creatinine Clr Calc Pharmacy 102.1 ml/min; Est GFR (African American) 77.3; Est GFR (Non-African American) 66.7; Glucose 176 mg/dl (70-99); Iron 81 mcg/dl (35-175); Potassium 3.7 mmol/L (3.5-5.1); Sodium 138 mmol/L (136-145); Triglycerides 295 mg/dl (0-150); VLDL Cholesterol 59 mg/dl
[2018-10-22 07:55] LABS: Chol HDL Ratio 7; Ferritin 60.2 ng/ml (8-388); HDL Cholesterol 41 mg/dl; LDL Cholesterol Calculated 169 mg/dl; Transferrin 233 mg/dl (200-360); Troponin I < 0.015 ng/ml (0-0.045)
[2018-10-22 08:03] LABS: Folate (Folic Acid) 14.45 ng/ml (>5.38)
[2018-10-22] MEDS ORDERED: PNEUMOCOCCAL ADMINISTRATION CHARGE ONE (08:15)
[2018-10-22] MEDS ORDERED: PNEUMOCOCCAL POLYSACCHARIDES 25 MCG/0.5 ML VIAL/SYR IM ONE (08:15)
[2018-10-22] MEDS ORDERED: CHLORPROMAZINE HCL 100 MG TABLET PO SCH ×2 (09:00→21:00)
[2018-10-22] MEDS ORDERED: VENLAFAXINE HCL XR 150 MG CAPXR PO SCH (09:00)
[2018-10-22] MEDS ORDERED: ASPIRIN 81 MG ECTAB PO SCH (09:00)
[2018-10-22] MEDS ORDERED: BENZTROPINE MESYLATE 1 MG TAB PO SCH (09:00)
[2018-10-22] MEDS ORDERED: BACLOFEN 10 MG TAB PO SCH (09:00)
[2018-10-22] MEDS ORDERED: ENOXAPARIN INJ 40 MG/0.4 ML SYR SQ SCH (09:00)
[2018-10-22] MEDS ORDERED: GABAPENTIN 800 MG TAB PO SCH (09:00)
--- NOTE | 2018-10-22 09:05 | Hospitalist Progress Note ---
Date of Service October 22, 2018 Assessment & Plan (1) Substernal chest pain: R/O ACS, POSSIBLE ANGINA -- substernal chest pressure radiating to the neck, left arm resolved with Nitro -- risk factors: heavy smoker, obesity -- troponin negative x 2 EKG: no signs of acute ischemia -- Dobutamine Stress Test Cardiology consulted ABDOMINAL PAIN -- resolved -- CT abdomen: diverticulosis, otherwise unrevealing Hg 15 PROLONGED QT 509 on admission, 490 on repeat on Thorazine, Venlafazine will need to be monitored closely ELEVATED A1C 6.5 DM diet close outpatient ff up ELEVATED TG low fat diet, exercise History of posttraumatic CVA as per records seizure disorder, stable mood disorder/ PTSD/ anxiety at baseline as per patient -- continue usual medications ongoing tobacco abuse -- counselled on Cessation DVT prophylaxis. Lovenox subcu Full code Disposition D/c home when medically stable Subjective ff up for chest pain seen resting in bed comfortable, not in distress chest pain free since admission states chest pain was at rest- substernal radiating to neck and left shoulder, left arm- pressure- associated with dyspnea relieved by nitro- from 8, pain came down to 0 current smoker- since age 16 patient is adopted- no knowledge of family medical history has chest discomfort when climbing up steps no abdominal pain no nausea had 6 loose BMs after lactulose no melena/hematochezia Review of Systems Review of Systems: All systems reviewed & are unremarkable except as noted in HPI & below Physical Exam Physical Exam: General- oriented x 3, not in distress, speaks in sentences with no effort or accessory muscle use Head- atraumatic Eyes- PERRL, EOMI, anicteric ENT- oropharynx clear Neck- supple, no JVD, no adenopathy, no thyromegaly; carotids +2/2, no bruits appreciated Lungs- clear to auscultation bilaterally, no rales/wheezes Heart- normal rate, regular rhythm; no murmur, no gallop, no rub appreciated Abdomen- normal bowel sounds, nondistended, soft, nontender, no masses or hepatosplenomegaly Extremities- no pretibial edema, no calf tenderness; peripheral pulses intact Neuro- alert, oriented x 3; CN 2-12 grossly intact; motor 5/5 bilaterally;sensation 100% on all extremities; no other gross focal neurologic deficits Skin- warm & dry Results & Data Vital Signs (Past 12 Hours) Vital Signs Temp Pulse Pulse Resp BP BP Pulse Ox 10/22/18 07:45 36.9 C 111 H 18 133/93 95 10/22/18 03:55 90 10/22/18 01:45 36.4 C L 90 24 135/79 95 10/22/18 01:00 92 H 18 118/98 94 10/22/18 00:30 84 16 122/96 97 10/22/18 00:00 94 H 19 140/93 96 10/21/18 23:30 90 16 120/93 94 10/21/18 23:01 93 H 14 128/85 94 10/21/18 22:42 36.8 C 96 H 24 152/90 H 94 Laboratory Results Laboratory Results - last 24 hr 10/21/18 10/21/18 10/21/18 22:15 22:15 22:15 WBC 12.59 H RBC 4.75 Hgb 13.9 L Hct 41.1 L MCV 86.5 MCH 29.3 MCHC 33.8 RDW Std Deviation 41.8 RDW Coeff of Trang 13.2 Plt Count 243 MPV 11.3 H Immature Gran % (Auto) 0.4 Neut % (Auto) 63.5 Lymph % (Auto) 28.2 Towner % (Auto) 6.5 Eos % (Auto) 1.2 Baso % (Auto) 0.2 Reticulocyte % (Auto) 2.0 Immature Gran # (Auto) 0.05 H Neut # (Auto) 7.99 H Lymph # (Auto) 3.55 H Towner # (Auto) 0.82 H Eos # (Auto) 0.15 Baso # (Auto) 0.03 Reticulocyte # 0.09 Absolute Nucleated RBC 0.00 Nucleated RBC % (auto) 0.0 PT INR APTT 25.9 PTT Ratio 1.0 POC D-Dimer Sodium 140 Potassium 4.0 Chloride 110 H Carbon Dioxide 22 Anion Gap 8.0 BUN 18 Creatinine 1.03 Est Cr Clr Drug Dosing 131.5 Est GFR ( Amer) 103.4 Est GFR (Non-Af Amer) 89.2 BUN/Creatinine Ratio 17.5 Glucose 84 Calcium 9.1 Magnesium 1.8 Iron TIBC Transferrin Ferritin Total Bilirubin 0.2 AST 18 ALT 50 Alkaline Phosphatase 92 POC Troponin I Troponin I < 0.015 Total Protein 7.8 Albumin 3.7 Globulin 4.1 H Albumin/Globulin Ratio 0.9 Triglycerides Cholesterol LDL Cholesterol, Calc VLDL Cholesterol, Calc HDL Cholesterol Cholesterol/HDL Ratio Lipase 92 Vitamin B12 Folate TSH 2.380 10/21/18 10/22/18 10/22/18 22:46 06:58 06:58 WBC 12.00 H RBC 5.17 Hgb 15.1 Hct 44.7 MCV 86.5 MCH 29.2 MCHC 33.8 RDW Std Deviation 42.4 RDW Coeff of Trang 13.5 Plt Count 258 MPV 11.1 H Immature Gran % (Auto) 0.5 Neut % (Auto) 62.1 Lymph % (Auto) 29.7 Towner % (Auto) 6.1 Eos % (Auto) 1.3 Baso % (Auto) 0.3 Reticulocyte % (Auto) Immature Gran # (Auto) 0.06 H Neut # (Auto) 7.47 H Lymph # (Auto) 3.56 H Towner # (Auto) 0.73 H Eos # (Auto) 0.15 Baso # (Auto) 0.03 Reticulocyte # Absolute Nucleated RBC Nucleated RBC % (auto) PT INR APTT PTT Ratio POC D-Dimer 330 Sodium 138 Potassium 3.7 Chloride 110 H Carbon Dioxide 18 L Anion Gap 10.0 BUN 16 Creatinine 1.31 Est Cr Clr Drug Dosing 102.1 Est GFR ( Amer) 77.3 Est GFR (Non-Af Amer) 66.7 BUN/Creatinine Ratio 12.1 Glucose 176 H Calcium 9.2 Magnesium Iron 81 TIBC 303 Transferrin 233 Ferritin 60.2 Total Bilirubin AST ALT Alkaline Phosphatase POC Troponin I < 0.03 Troponin I < 0.015 Total Protein Albumin Globulin Albumin/Globulin Ratio Triglycerides 295 H Cholesterol 269 H LDL Cholesterol, Calc 169 VLDL Cholesterol, Calc 59 HDL Cholesterol 41 Cholesterol/HDL Ratio 7 Lipase Vitamin B12 Folate TSH 10/22/18 10/22/18 06:58 06:58 WBC RBC Hgb Hct MCV MCH MCHC RDW Std Deviation RDW Coeff of Trang Plt Count MPV Immature Gran % (Auto) Neut % (Auto) Lymph % (Auto) Towner % (Auto) Eos % (Auto) Baso % (Auto) Reticulocyte % (Auto) Immature Gran # (Auto) Neut # (Auto) Lymph # (Auto) Towner # (Auto) Eos # (Auto) Baso # (Auto) Reticulocyte # Absolute Nucleated RBC Nucleated RBC % (auto) PT 10.7 INR 1.0 APTT PTT Ratio POC D-Dimer Sodium Potassium Chloride Carbon Dioxide Anion Gap BUN Creatinine Est Cr Clr Drug Dosing Est GFR ( Amer) Est GFR (Non-Af Amer) BUN/Creatinine Ratio Glucose Calcium Magnesium Iron TIBC Transferrin Ferritin Total Bilirubin AST ALT Alkaline Phosphatase POC Troponin I Troponin I Total Protein Albumin Globulin Albumin/Globulin Ratio Triglycerides Cholesterol LDL Cholesterol, Calc VLDL Cholesterol, Calc HDL Cholesterol Cholesterol/HDL Ratio Lipase Vitamin B12 927 H Folate 14.45 TSH
[2018-10-22] MEDS ORDERED: D5NSS + 20MEQ KCL 20 MEQ/1,000 ML BAG IV SCH (10:00)
[2018-10-22] MEDS ORDERED: ATROPINE SULFATE 0.1 MG/ML 10ML SYR IV ONE (11:29)
[2018-10-22] MEDS ORDERED: METOPROLOL TARTRATE 1 MG/ML VIAL IV ONE (11:29)
[2018-10-22] MEDS ORDERED: DOBUTamine HCL 12.5 MG/ML 20 ML VIAL IV ONE (11:29)
[2018-10-22] MEDS ORDERED: PERFLUTREN LIPID MICROSPHERE (DEFINITY) IV ONE (11:59)
--- NOTE | 2018-10-22 12:32 | Consultation Report ---
DATE OF CONSULTATION: 10/22/2018 INPATIENT CARDIOLOGY CONSULTATION CONSULTATION REQUESTED BY: Dr. Solis. REASON FOR CONSULTATION: Chest pain. HISTORY OF PRESENT ILLNESS: Mr. Barriga is a very pleasant 42-year-old gentleman who presented to [facility] late in the evening of 10/21/2018 with a complaint of chest discomfort. The patient states that he has not had a bowel movement in 2 weeks and was dealing with a lot of abdominal discomfort from constipation. Then after dinner, he was simply sitting in a chair, watching television when he developed chest discomfort. He describes a pressure sensation and he thinks it may have radiated up from his belly. He denied any associated symptoms with it. Specifically, he denied any associated shortness of breath, diaphoresis, nausea, lightheadedness, dizziness, or syncope. He did become concerned though, came into the Emergency Department and he states that the pain resolved after receiving nitroglycerin. He has not had any recurrence of discomfort overnight and he states he has had approximately 10 bowel movements throughout the night. Currently, he feels well. PAST SURGICAL HISTORY: Colonoscopy. MEDICAL ILLNESSES: 1. Posttraumatic stress disorder. 2. Head injury with resultant CVA. 3. Migraines. 4. Mood disorder. 5. Tobacco abuse. FAMILY HISTORY: Unknown. SOCIAL HISTORY: The patient is a lifelong smoker, continues to smoke about a pack a day. He drinks occasional alcohol. He does smoke marijuana. REVIEW OF SYSTEMS: As per HPI, all other review of systems reviewed and negative at this time. ALLERGIES: 1. ASPIRIN. 2. BEE VENOM. 3. LATEX. 4. NIACIN. 5. PENICILLIN. MEDICATIONS AN OUTPATIENT: 1. Atorvastatin 20 mg daily. 2. Prazosin 4 mg at bedtime. 3. Clonidine 0.1 mg daily at 4 p.m. 4. Thorazine 3 times a day. 5. Vistaril at bedtime. 6. Baclofen 3 times a day. 7. Effexor b.i.d. 8. Neurontin t.i.d. 9. Linzess daily. PHYSICAL EXAMINATION: VITALS: Temperature 36.9, pulse 89, respiratory rate 12, blood pressure 133/93. GENERAL: Awake, alert, oriented x3 in no acute distress. HEENT: Normocephalic, atraumatic. Pupils equal, round, reactive to light and accommodation. Extraocular muscles intact. Anicteric sclerae. Moist mucous membranes. NECK: No JVD, no bruit. CARDIOVASCULAR: Regular. No S4. Normal S1 and S2. No S3. No murmurs, rubs or gallops. PULMONARY: Clear to auscultation bilaterally. No rales, rhonchi, or wheezing. ABDOMEN: Bowel sounds x4, soft. No rebound, guarding, tenderness. No organomegaly. EXTREMITIES: No clubbing, cyanosis or edema. +2 pedal pulses bilaterally. SKIN: Warm and dry. TEST RESULTS: A 12-lead EKG performed in the Emergency Department independently reviewed at this time shows normal sinus rhythm at 100 beats per minute, nonspecific lateral T-wave flattening, prolonged QT of 508 milliseconds without any significant change compared to previous study. LABORATORY STUDIES: Troponin negative x2. Dobutamine stress echocardiogram was nondiagnostic achieving only a target heart rate of 70%; however, nonischemic at 70% target heart rate. IMPRESSION: 1. Atypical chest pain. 2. Severe constipation. 3. Dyslipidemia. 4. Posttraumatic stress disorder. 5. History of traumatic cerebrovascular accident. RECOMMENDATIONS: It was my pleasure to see Mr. Barriga in consultation today. Given the fact that the patient's discomfort occurred at rest while suffering from 2 weeks worth of constipation and the fact that his ischemic workup has been unremarkable, no further cardiac testing or intervention is necessary at this time. I do believe the pain was referred from his abdomen, given his significant constipation and I do not believe any further testing is necessary at this time. Should he have any recurrence in the future, I recommend he follow up with his PCP and consideration can be given to a 2-day outpatient Lexiscan nuclear stress test. Otherwise, no other medication changes will be made at this time. It is okay to discharge the patient to home from a cardiac standpoint.
--- NOTE | 2018-10-22 14:52 | Discharge Summary ---
Date of Service October 22, 2018 Admission HPI Per Admitting Provider History obtained from patient, family, and records. Medical history significant for posttraumatic CVA, seizure disorder, mood disorder, PTSD, anxiety, ongoing tobacco abuse, hx diverticulosis/hemorrhoids on colonoscopy. Recent confinement March 2018 for constipation symptoms. Last night patient was watching television when he experienced achy substernal discomfort going to the left arm with some shortness of breath. No previous episodes. Patient took home aspirin at home. Some relief with nitroglycerin given by EMS. Nitropaste placed at the ER. Patient currently complaining of a headache. Patient also complaining of achy generalized abdominal discomfort, last bowel movement was 2 weeks ago. Denies recent black or bloody stools. 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 Admission Exam Per Admitting Provider Temp 36.9 C 04/06/18 11:41 Pulse 98 H 04/06/18 15:10 Resp 20 04/06/18 15:10 BP 112/81 04/06/18 15:10 Pulse Ox 93 04/06/18 15:10 Physical Exam: General: no distress, obese Head: normocephalic, atraumatic Eyes: PERRL, EOM's intact, conjunctiva non-injected, anicteric ENT: normal inspection external ears, nose, mucous membranes moist Neck: supple, trachea midline, non-tender Lungs: clear, no respiratory distress, no wheezing/rhonchi/rales CV: RRR, no murmur, no pretibial edema Abd: normal BS, soft, mild tenderness diffuse tenderness to palpation with increased tenderness to palpation to epigastric and LLQ without rebound or guarding Ext: no cyanosis, no calf tenderness Neuro: A&O x 3, no focal deficits noted, normal affect Skin: warm, dry Principal Diagnosis ATYPICAL CHEST PAIN Discharge Exam General- oriented x 3, not in distress, speaks in sentences with no effort or accessory muscle use Head- atraumatic Eyes- PERRL, EOMI, anicteric ENT- oropharynx clear Neck- supple, no JVD, no adenopathy, no thyromegaly; carotids +2/2, no bruits appreciated Lungs- clear to auscultation bilaterally, no rales/wheezes Heart- normal rate, regular rhythm; no murmur, no gallop, no rub appreciated Abdomen- normal bowel sounds, nondistended, soft, nontender, no masses or hepatosplenomegaly Extremities- no pretibial edema, no calf tenderness; peripheral pulses intact Neuro- alert, oriented x 3; CN 2-12 grossly intact; motor 5/5 bilaterally;sensation 100% on all extremities; no other gross focal neurologic deficits Skin- warm & dry Discharge Data Allergies Allergy/AdvReac Type Severity Reaction Status Date / Time latex Allergy Intermediate rash Verified 10/21/18 23:10 niacin Allergy Intermediate burning Verified 10/21/18 23:10 sensation Penicillins Allergy Intermediate Unknown Verified 10/21/18 23:10 aspirin Allergy Unknown Unknown Verified 10/21/18 23:10 Consultations 10/22/18 00:05 ED Decision to Admit Stat 10/22/18 09:06 Consult Cardiology Routine Ordered Studies 10/22/18 00:51 CT abd pelvis IV con only Urgent FINDINGS: Pl[employer] Battery As[employer]er topogram: Cholecystectomy clips noted. Lung bases: Normal heart size. No pericardial or pleural effusion. Minimal dependent changes likely atelectasis. Liver: Normal morphology. Irregular hypoattenuation along the gallbladder fossa may relate to retraction injury unchanged from prior. No focal lesion. Patent hepatic vasculature. Biliary: No intrahepatic or extrahepatic biliary ductal dilatation. Gallbladder surgically absent. Pancreas: Mild parenchymal atrophy. Spleen: Normal. Adrenal glands: Normal. Kidneys and ureters: Normal. No hydronephrosis. Bladder: Normal. Pelvic organs: The prostate is either absent or atrophic. Residual seminal vesicles normal. Bowel: Mild stool burden throughout normal caliber colon. The stool burden is predominantly in the left and transverse colon. Limited diverticulosis of the proximal to mid sigmoid colon without wall thickening or pericolonic inflammatory change. Fluid is noted in the cecum. The appendix is normal. No distention of small bowel. Peritoneal cavity: No free fluid or intraperitoneal gas. Lymph nodes: No enlarged lymph nodes in the abdomen or pelvis. Vasculature: Atherosclerosis of the normal caliber abdominal aorta. IVC patent. Abdominal wall: Normal. Musculoskeletal: Normal. IMPRESSION: 1. Mild stool burden predominantly in the left and transverse colon. No bowel obstruction. No acute intra-abdominal pathology. 2. Atrophic or absent prostate. Hospital Course (1) Substernal chest pain: ACUTE CORONARY SYNDROME RULED OUT -- substernal chest pressure radiating to the neck, left arm resolved with Nitro -- risk factors: heavy smoker, obesity -- troponin negative x 2 EKG: no signs of acute ischemia -- Dobutamine Stress Test : Nondiagnostic dobutamine stress echocardiogram Nonischemic 70% max predicted HR for age No arrhythmias Normal heart rate and BP response to dobutamine infusion Symptoms not replicated with stress At rest normal LV chamber size with mild LVH Normal LV systolic function EF 60 to 65% No segmental left ventricular wall motion abnormalities noted Grade 1 diastolic dysfunction No significant valvular pathology Cardiology Dr. Dubon consulted --No further intervention at this time --If symptoms would continue, recommend to do outpatient Lexiscan nuclear stress test ABDOMINAL PAIN -- resolved --Patient was reporting constipation Given laxatives, (+) bowel movements --Question whether chest pain was related to constipation -- CT abdomen: diverticulosis, otherwise unrevealing Hg 15 PROLONGED QT 509 on admission, 490 on repeat EKG on Thorazine, Venlafazine will need to be monitored closely ELEVATED A1C 6.5 DM diet close outpatient ff up ELEVATED TG TriGlycerides 295 LDL 169 low fat diet, exercise History of posttraumatic CVA Seizure disorder -- stable mood disorder/ PTSD/ anxiety at baseline as per patient -- continue usual medications Ongoing tobacco abuse -- counselled on Cessation Disposition Discharge to home Follow-up with primary care physician as outlined in discharge instructions Total Time Total Time Spent Total Time Spent (In Minutes): 40 minutes Discharge Plan Discharge Items Patient Disposition: Home - Self-Care Reason For Visit: CHEST PAIN Discharge Diagnosis: CHEST PAIN Discharge Goals: Diagnostic testing and Therapeutic intervention Activity: As commented below Activity Comment: RESUME ACTIVITY GRADUALLY TOLERATED Non-emergency contact: Primary Care Provider Call non-emergency contact if: you have any medication questions, your symptoms worsen, your pain is not controlled and you have a fever Follow-up/Referrals: Yvon Sanchez MD [Primary Care Provider] - Diet: Heart Healthy Addtl Provider Instructions: PLEASE FOLLOW UP WITH PRIMARY CARE PHYSICIAN DR. BERUMEN (ASSOCIATE OF DR. SANCHEZ) ON Friday10/26/18 AT 10:45 AM. (DR. SANCHEZ IS NOT AVAILABLE NEXT WEEK). PLEASE DRINK PLENTY OF FLUIDS. ALWAYS INCLUDE FRUITS, VEGETABLES IN YOU DAILY DIET. CALL PRIMARY CARE PHYSICIAN OR RETURN TO ER IMMEDIATELY IF WITH WORSENING OF SYMPTOMS. Prescriptions: New sennosides-docusate sodium [Senokot-S] 8.6-50 mg tablet 1 tab PO DAILY Qty: 14 RF: 0 Continued clonidine HCl 0.1 mg tablet 1 tab PO DAILY@1600 RF: 0 chlorpromazine 100 mg tablet 100 mg PO BID RF: 0 venlafaxine 150 mg capsule,extended release 24hr 150 mg PO QAM RF: 0 melatonin 3 mg tablet 9 mg PO HS RF: 0 baclofen 10 mg tablet 10 mg PO TID RF: 0 ranitidine HCl 150 mg tablet 150 mg PO BID PRN (Reason: Acid Reflux) RF: 0 prazosin 2 mg capsule 4 mg PO HS RF: 0 benztropine 1 mg Tablet 1 mg PO DAILY RF: 0 gabapentin 300 mg Capsule 300 mg PO TID RF: 0 chlorpromazine 100 mg tablet 500 mg PO HS RF: 0 gabapentin [Neurontin] 800 mg tablet 800 mg PO TID RF: 0 diphenhydramine HCl [Benadryl] 25 mg Capsule 75 mg PO HS RF: 0 calcium carbonate [Tums] 200 mg calcium (500 mg) Tablet,Chewable 400 mg PO BID PRN (Reason: Acid Reflux) RF: 0 Discontinued aspirin 325 mg Tablet,Delayed Release (Dr/Ec) 650 mg PO DAILY PRN (Reason: Pain) RF: 0 Stand-Alone Forms: Call Back Authorization, [facility], [facility] Discharge Orders: Discharge Order (Routine); Ordered 10/22/18 Ordered By: Kamlesh Solis Admission Data Admit Date/Time: 10/22/18 00:54 Attending Provider: Kamlesh Solis Admit Provider: Gary Velasquez Primary Care Provider: Yvon Sanchez Other Providers: Gary Velasquez ; Stephon Castro ; Adalberto Dubon ; Wil Mcghee ; David Serrato ; Taz Dodge ; Remberto Baron ; Steven Carvajal ; Amber Noyola ; Wendy Gannon Service: Telemetry Medical Other Interventions: Discharge Summary Assessment (RN) Last Done: 10/22/18 14:50 DC Date/Time DO NOT enter until pt leaves facility: 10/22/18 14:58
[2018-10-22 14:53] VITALS: PULSE 111
[2018-10-22] MEDS ORDERED: cloNIDine HCl 0.1 MG TAB PO SCH (16:00)
[2018-10-22] MEDS ORDERED: PRAZOSIN HCL 1 MG CAP PO SCH (21:00)
--- OUTSIDE RECORDS SUMMARY | 2018-10-26 20:53 | External Medical Summary | Continuity of Care Document ---
:1975 Author Name Faye Smith Address Unavailable Unavailable , Care Team Providers Name Role Phone Non[facility] M.D. Unavailable [email or web address] Purnima GANDHI Unavailable Unavailable Problems Hypertension (401.9) (I10) Malaise and fatigue (780.79) (R53.81) Seizure disorder (345.90) (G40.909) Syncope (780.2) (R55) Orthostatic hypotension (458.0) (I95.1) Dizziness (780.4) (R42) Allergies and Adverse Reactions Aspirin TABS (Allergy) Latex Gloves MISC (Allergy) niacin (Allergy) Penicillins (Allergy) Bee sting (Allergy) Medications Propranolol HCl - 10 MG Oral Tablet; 1 Refills: 0 Topiramate 50 MG Oral Tablet; Take 1 tablet twice daily Refills: 0 DULoxetine HCl - 60 MG Oral Capsule Sera yed Release Particles; TAKE 1 CAPSULE Bedtime Refills: 0 traZODone HCl - 150 MG Oral Tablet; TAKE 1.5 TABLET Bedtime Refills: 0 Baclofen 10 MG Oral Tablet; TAKE 1 TABLET 3 times daily Refills: 0 EpiPen 0.3 MG/0.3ML [place] Refills: 0 Atorvastatin Calcium 20 MG Oral Tablet; TAKE 1 TABLET AT BED TIME. Quantity: 30 Refills: 11 Thorazine 50 MG TABS; TAKE 3 TABLET 3 times daily Refills: 0 Doxepin HCl - 25 MG Oral Capsule; TAKE 1 CAPSULE AT BEDTIME. Quantity: 30 Refills: 1 Topamax 100 MG Oral Tablet; Take 1 tablet twice daily Refills: 0 Procedures History of Cholecystectomy Status: Compl eted History of Nasal Septal Deviation Repair Status: Completed Immunizations Immunizations not documented Plan of Treatment Planned Observations Planned Goals not documented Results No Known Results Results not documented Encounters Appointment; Eloina Jha DO 02-Jan-2017 9:00 Encounter Diagnosis: Problem not documented Appointment; Case, CORIE Molina 30-Oct-2016 10:00 Encounter Diagnosis: Problem not documented
== END 2018-10-22 14:58 | disposition home or self-care (01) ==
LOC: 2W 22:32 → ED 22:32 → SUATTDRO 10-22 00:54 → 2W 10-22 01:26

== ENCOUNTER 2019-09-20 20:00 | Inpatient (IN) ==
[2019-09-20] MEDS ORDERED: NALOXONE HCL 0.4 MG/1 ML VIAL/CARP ONE (20:27)
--- NOTE | 2019-09-20 20:32 | CT Scan Report ---
CT head/brain wo con CT DOSE: HISTORY: Mental status change Stroke evaluation TECHNIQUE: Multiaxial CT images of the head were performed without the use of intravenous contrast. A dose lowering technique was utilized adhering to the principles of ALARA. Comparison: None. Findings: The paranasal sinuses and mastoid air cells are clear. The calvarium and skull base are int act. The ventricles and sulci are within normal limits. There is no mass, hematoma, midline shift, or acute infarct. Impression: No acute intracranial abnormality. ACT 112: Negative or not required by law. The above report was generated using voice recognition software. It may contain grammatical, syntax or spelling errors. Electronically signed by: Steven Marie M.D. 09/20/2019 8:31 PM
[2019-09-20] MEDS ORDERED: OPTIRAY 320 125ml IV PRN (20:38)
--- NOTE | 2019-09-20 20:40 | Emergency Department Note ---
History of Present Illness General Chief complaint: Stroke Alert Stated complaint: STROKE ALERT Time Seen by Provider: 09/20/19 20:01 History of Present Illness Provider complaint: code stroke Onset (ago): hour(s) 1 43-year-old male headache started 1 hour ago, right-sided weakness, gargling speech, decreased tube depatcher strength on the right side. Fall yesterday. History of PE and asthma. Home Medications Home Medications Medication Instructions Recorded Confirmed Type baclofen 10 mg PO TID 04/06/18 05/04/19 History benztropine 1 mg PO DAILY@1600 04/06/18 05/04/19 History clonidine HCl 0.1 mg PO DAILY@1600 04/06/18 05/04/19 History melatonin 9 mg PO HS 04/06/18 05/04/19 History prazosin 4 mg PO HS 04/06/18 05/04/19 History chlorpromazine 500 mg PO HS 10/21/18 05/04/19 History diphenhydramine HCl [Benadryl] 75 mg PO HS 10/21/18 05/04/19 History gabapentin [Neurontin] 800 mg PO TID 10/21/18 05/04/19 History chlorpromazine 50 mg PO BID 09/20/19 09/20/19 History docusate sodium 100 mg PO BID 09/20/19 09/20/19 History gabapentin [Neurontin] 800 mg PO TID 09/20/19 09/20/19 History hydroxyzine HCl 50 - 100 mg PO HS PRN 09/20/19 09/20/19 History polyethylene glycol 3350 [Miralax] 17 g PO DAILY PRN 09/20/19 09/20/19 History venlafaxine 75 mg PO BID 09/20/19 09/20/19 History Allergies Allergy/AdvReac Type Severity Reaction Status Date / Time latex Allergy Intermediate rash Verified 09/20/19 20:27 niacin Allergy Intermediate burning Verified 09/20/19 20:27 sensation Penicillins Allergy Intermediate difficult Verified 09/20/19 20:27 to breathe aspirin Allergy Unknown nausea & Verified 09/20/19 20:25 vomiting bee venom protein (honey bee) Allergy Difficulty Verified 09/20/19 20:27 Breathing Past Med/Surg History Medical History Anxiety Anxiety (Chronic) Back pain Bipolar disease, chronic Depression Depression (Chronic) GERD (gastroesophageal reflux disease) HLD (hyperlipidemia) HTN (hypertension) (Chronic) Hypertension Kidney stones Migraine Mood disorder PTSD (post-traumatic stress disorder) Seizure disorder Surgical History History of cholecystectomy (Resolved) History of cholecystectomy History of vasectomy Hx of tonsillectomy Family History Other Unknown family medical history Social History Preferred Language: Burmese Communication Ability: Effective Learning And Development Analyst Required: No Beliefs That Will Affect Care: Spiritism Spiritism Beliefs: latter day Current Living Situation: Spouse Feels Safe at Home: Yes Smoking Status: Current every day smoker Tobacco Type: cigarettes ; Cigarettes Per Day: 10 ; Second Hand Exposure: No ; Hx Alcohol Use: No (hx rehab in his 20's) Hx Substance Use: Yes (marijuana daily) substance use type: marijuana Substance Use Type Other:: reports he is in the process of getting medical marijuana prescribed Review of Systems Unobtainable due to mental health condition Physical Exam Vital Signs Vital Signs - 24 hr 09/20/19 20:27 09/20/19 20:38 09/20/19 20:39 Temperature 36.5 C Temperature Source Oral Pulse Rate 107 H Pulse Rate [Right Finger] 108 H Pulse Rhythm Regular Pulse Rhythm [Right Finger] Regular Pulse Strength Normal Pulse Strength [Right Finger] Normal Respiratory Rate 20 20 Respiratory Depth Normal Blood Pressure 171/137 H Blood Pressure [Right Arm] 176/129 H Blood Pressure Mean 148 Blood Pressure Mean [Right Arm] 144 Blood Pressure Position Lying Blood Pressure Position [Right Arm] Lying Pulse Oximetry 98 95 Oxygen Delivery Method Room Air Room Air Room Air Oxygen Flow Rate 97 Sepsis Recent Fever Within 48 Hours No Sepsis New/Unexplained Change in Mental Status No Sepsis Action Taken by Nursing No Action Required Physical Exam GENERAL: He is lethargic. HENT: Exam performed. - Head: Normocephalic and atraumatic. - Right Ear: External ear normal. No mastoid tenderness. - Left Ear: External ear normal. No mastoid tenderness. - Mouth/Throat: The oropharynx is clear and moist. No trismus in the jaw. No dental abscesses or uvula swelling. No oropharyngeal exudate or tonsillar abscesses. EYES: Conjunctivae and EOM are normal. Pupils are equal, round, and reactive to light. Right eye exhibits no discharge. Left eye exhibits no discharge. No scleral icterus. NECK: Normal range of motion. Neck supple. No JVD present. No spinous process tenderness present. No carotid bruit present. No rigidity. No tracheal deviation and normal range of motion present. No Brudzinski's sign and no Kernig's sign noted. CV: Normal rate, regular rhythm, normal heart sounds and intact distal pulses. There is no peripheral edema. Palpable radial pulses bue. PULM/CHEST: Effort normal and breath sounds normal. No respiratory distress. No stridor. He has no wheezes. He has no rales. - Chest Wall: He exhibits no tenderness. ABD: The abdomen is soft. MUSC/SKEL: Normal range of motion. There is no peripheral edema, tenderness or deformity. LYMPH: No cervical adenopathy. NEURO: NIH stroke scale: 1 (dysarthria: 1) Course Course 1955: Call from the field. 44-year-old male with right-sided weakness, gurgling speech, and headache started 1 hour ago. Code stroke called from the field. 1999: Patient was taken immediately CAT scan from EMS. Per EMS the patient 1 hour ago started having headache, right-sided weakness, gargling speech. He is decreased tube depatcher strength on the right side. He had a fall yesterday. I went with the patient a CAT scan. CT of the head viewed by me showed no large intracerebral hemorrhage. Patient was also 86% on room air per EMS. They state the patient does have a history of PE CTA of the chest and CT of the C-spine were also ordered given the history provided by EMS. 2034: Patient was seen back in room B1. NIH stroke scale of 1. Patient states that he took his nighttime medication 1 hour ago including chloro promazine, benztropine and baclofen, and then began having headache and garbled speech. at bedside states she is never sounded like that in the past. They state they were concerned he was having a stroke. Patient was given Narcan 0.4 mg to see if it would improve his clinical status given his multitude of medications that he was taken. Tele-neurology stroke team Dr. Armenta was consulted and she will be on the phone to evaluate the patient. 2100: Spoke with Dr. Armenta tele-neurology. She reviewed the patient's CAT scan. She states she was unable to see any previous stroke. When EMR was further reviewed by me, the patient has no history of stroke or pulmonary embolus documented. Both Dr. Borjas and I agree that the patient is not a TPA candidate. We discussed his disposition and she recommends observation for medication effect versus hypertensive urgency versus TIA. Patient will be admitted to the [facility] service. Dr. Kenrick zapata. Administered Medications Ioversol (Optiray 320 125ml) 118 ml IV ONCE PRN PRN Reason: Interaction Checking Stop: 09/24/19 20:37 Last Admin: 09/20/19 20:38 Dose: 118 ml Documented by: [id number] Discontinued Medications Naloxone HCl (Narcan) Confirm Administered Dose 0.4 mg .ROUTE .STK-MED ONE Stop: 09/20/19 20:28 Last Admin: 09/20/19 20:27 Dose: 0.4 mg Documented by: [id number] Critical Care Time Critical Care Time: Yes Total Critical Care Time: 50 I have personally spent greater than 50 minutes of critical care time in the direct management of this patient. This includes bedside care, interpretation of diagnostic studies, and testing, discussion with consultants, patient, and family members, and other required patient management activities. This 50 minutes is in excess of all separately billable procedures. Medical Decision Making Laboratory Data Result diagrams: 09/20/19 20:27 09/20/19 20:27 Lab Results 09/20/19 09/20/19 09/20/19 Range/Units 19:55 20:27 20:27 WBC 11.67 H (4.8-10.8) K/uL RBC 4.80 (4.7-6.1) M/uL Hgb 14.1 (14.0-18.0) g/dL Hct 42.0 (42-52) % MCV 87.5 (80-100) fL MCH 29.4 (25-34) pg MCHC 33.6 (32-36) g/dL RDW Std Deviation 43.1 (36.4-46.3) fL RDW Coeff of Trang 13.6 (11.5-14.5) % Plt Count 316 (130-400) K/uL MPV 11.1 H (7.4-10.4) fL PT 10.9 (9.0-12.0) Seconds INR 1.0 (0.9-1.1) APTT 26.6 (21.0-31.0) Seconds PTT Ratio 1.0 VBG pH (7.36-7.41) VBG pCO2 (38-50) mmHg VBG pO2 mmHg VBG HCO3 mmol/L VBG O2 Saturation % VBG Base Excess mEq/L Barometric Pressure mm/Hg Sodium 140 (136-145) mmol/L Potassium 3.2 L (3.5-5.1) mmol/L Chloride 105 (98-107) mmol/L Carbon Dioxide 28 (21-32) mmol/L Anion Gap 7.0 (3-11) BUN 10 (7-18) mg/dl Creatinine 1.01 (0.6-1.4) mg/dl Est Cr Clr Drug Dosing 132.2 ml/min Est GFR ( Amer) 105.1 Est GFR (Non-Af Amer) 90.7 BUN/Creatinine Ratio 9.4 L (10-20) Glucose 113 H (70-99) mg/dl POC Glucose (70-99) mg/dl Calcium 9.3 (8.5-10.1) mg/dl Magnesium 1.8 (1.8-2.4) mg/dl AST 28 (15-37) U/L ALT 59 (12-78) U/L Albumin 3.8 (3.4-5.0) gm/dl 09/20/19 09/20/19 Range/Units 20:29 20:37 WBC (4.8-10.8) K/uL RBC (4.7-6.1) M/uL Hgb (14.0-18.0) g/dL Hct (42-52) % MCV (80-100) fL MCH (25-34) pg MCHC (32-36) g/dL RDW Std Deviation (36.4-46.3) fL RDW Coeff of Trang (11.5-14.5) % Plt Count (130-400) K/uL MPV (7.4-10.4) fL PT (9.0-12.0) Seconds INR (0.9-1.1) APTT (21.0-31.0) Seconds PTT Ratio VBG pH 7.35 L (7.36-7.41) VBG pCO2 46 (38-50) mmHg VBG pO2 39 mmHg VBG HCO3 24 mmol/L VBG O2 Saturation 67.7 % VBG Base Excess -1.5 mEq/L Barometric Pressure 733.0 mm/Hg Sodium (136-145) mmol/L Potassium (3.5-5.1) mmol/L Chloride (98-107) mmol/L Carbon Dioxide (21-32) mmol/L Anion Gap (3-11) BUN (7-18) mg/dl Creatinine (0.6-1.4) mg/dl Est Cr Clr Drug Dosing ml/min Est GFR ( Amer) Est GFR (Non-Af Amer) BUN/Creatinine Ratio (10-20) Glucose (70-99) mg/dl POC Glucose 105 H (70-99) mg/dl Calcium (8.5-10.1) mg/dl Magnesium (1.8-2.4) mg/dl AST (15-37) U/L ALT (12-78) U/L Albumin (3.4-5.0) gm/dl Imaging Data Radiologist's Impression: CT angio chest PE protocol CT DOSE: HISTORY: Chest pain. Dyspnea. ro PE TECHNIQUE: Multiaxial CT images of the chest were performed following the intravenous administration of contrast to evaluate the pulmonary arteries. Maximal intensity projection images were also obtained. A dose lowering technique was utilized adhering to the principles of ALARA. COMPARISON STUDY: None. FINDINGS: There is a normal caliber thoracic aorta with no evidence for dissection. There is no evidence for pulmonary embolus. No pleural effusions. No pneumothorax. The liver and spleen are unremarkable. No mediastinal or hilar lymphadenopathy. The central airways are patent. The lungs are clear. IMPRESSION: No evidence for pulmonary embolus. The lungs are clear. ACT 112: Negative or not required by law. The above report was generated using voice recognition software. It may contain grammatical, syntax or spelling errors. Electronically signed by: Steven Marie M.D. 09/20/2019 8:53 PM Dictated: 09/20/192051 Transcribed: 09/20/192051 CT cervical spine wo con CT DOSE: HISTORY: Trauma fall stroke TECHNIQUE: Multiaxial CT images of the cervical spine were performed and reformatted in the sagittal and coronal plane without the use of contrast. A dose lowering technique was utilized adhering to the principles of ALARA. COMPARISON: None. FINDINGS: No fractures. No subluxation. Prevertebral soft tissues and the C1-C2 interval are intact. No pneumothorax. Muscle spasm with reversal of the cervical curvature. IMPRESSION: No fractures within the cervical spine. Muscle spasm ACT 112: Negative or not required by law. The above report was generated using voice recognition software. It may contain grammatical, syntax or spelling errors. Electronically signed by: Steven Marie M.D. 09/20/2019 8:55 PM Dictated: 09/20/192052 Transcribed: 09/20/192052 CT angio neck with con HISTORY: Stroke evaluation TECHNIQUE: Multiaxial CT angiography of the neck was performed IV contrast: 100 cc All measurements were calculated based on NASCET criteria. Maximum intensity projection images were also obtained. A dose lowering technique was utilized adhering to the principles of ALARA. COMPARISON STUDY: None. FINDINGS: The aortic arch and proximal great vessels are widely patent. There is no significant stenosis, occlusion, or dissection identified within the bilateral common carotid, internal carotid, or vertebral arteries. IMPRESSION: No significant stenosis, occlusion, or dissection identified within the carotid or vertebral arteries. ACT 112: Negative or not required by law. The above report was generated using voice recognition software. It may contain grammatical, syntax or spelling errors. Electronically signed by: Steven Marie M.D. 09/20/2019 8:49 PM Dictated: 09/20/192047 Transcribed: 09/20/192047 CT angio head w con HISTORY: Stroke evaluation TECHNIQUE: Multiaxial CT angiography of the head was performed IV contrast: None. Maximum intensity projection images were also obtained. A dose lowering technique was utilized adhering to the principles of ALARA. COMPARISON: None. FINDINGS: There is no mass, hematoma, midline shift, or acute infarct. Visualized intracranial internal carotid arteries, distal vertebral arteries, and basilar artery are widely patent. There is no significant stenosis, occlusion, or aneurysm seen within the bilateral ACAs, MCAs, or financial project manager. IMPRESSION: No significant stenosis, occlusion, or aneurysm within the [place] of [place]. ACT 112: Negative or not required by law. The above report was generated using voice recognition software. It may contain grammatical, syntax or spelling errors. Electronically signed by: Steven Marie M.D. 09/20/2019 8:47 PM Dictated: 09/20/192045 Transcribed: 09/20/192045 ECG Data Additional Comments: EKG #1 at 2025. Sinus Rhythym. Rate 110. MT QRS intervals within normal limits. QTc interval 668. No ST elevation or ST depression PVC present. Baseline artifact. EKG #2 at 2108 without any intervention: Sinus Rhythym. Rate 106. MT QRS and Qtc intervals within normal limits. No ST elevation or ST depression MDM Narrative 1955: Call from the field. 44-year-old male with right-sided weakness, gurgling speech, and headache started 1 hour ago. Code stroke called from the field. 1999: Patient was taken immediately CAT scan from EMS. Per EMS the patient 1 hour ago started having headache, right-sided weakness, gargling speech. He is decreased tube depatcher strength on the right side. He had a fall yesterday. I went with the patient a CAT scan. CT of the head viewed by me showed no large intracerebral hemorrhage. Patient was also 86% on room air per EMS. They state the patient does have a history of PE CTA of the chest and CT of the C-spine were also ordered given the history provided by EMS. 2034: Patient was seen back in room B1. NIH stroke scale of 1. Patient states that he took his nighttime medication 1 hour ago including chloro promazine, benztropine and baclofen, and then began having headache and garbled speech. at bedside states she is never sounded like that in the past. They state they were concerned he was having a stroke. Patient was given Narcan 0.4 mg to see if it would improve his clinical status given his multitude of medications that he was taken. Tele-neurology stroke team Dr. Armenta was consulted and she will be on the phone to evaluate the patient. 2099: Spoke with Dr. Armenta tele-neurology. She reviewed the patient's CAT scan. She states she was unable to see any previous stroke. When EMR was further reviewed by me, the patient has no history of stroke or pulmonary embolus documented. Both Dr. Borjas and I agree that the patient is not a TPA candidate. We discussed his disposition and she recommends observation for medication effect versus hypertensive urgency versus TIA. Patient will be admitted to the [facility] hospitalist service. Dr. Kenrick zapata. Impression & Plan Drug side effects, Transient ischemic attack (TIA) Discharge Plan Visit Data Chief Complaint: Stroke Alert Stated Complaint: STROKE ALERT ED Provider: Michael Ordonez Discharge Problem: Drug side effects, Transient ischemic attack (TIA) Patient Disposition: Being Evaluated by Hospitalist Forms Stand Alone Forms: [facility] Prescriptions Prescriptions: No Action clonidine HCl 0.1 mg tablet 0.1 mg PO DAILY@1600 RF: 0 melatonin 3 mg tablet 9 mg PO HS RF: 0 baclofen 10 mg tablet 10 mg PO TID RF: 0 prazosin 2 mg capsule 4 mg PO HS RF: 0 benztropine 1 mg Tablet 1 mg PO DAILY@1600 RF: 0 chlorpromazine 100 mg tablet 500 mg PO HS RF: 0 gabapentin [Neurontin] 800 mg tablet 800 mg PO TID RF: 0 diphenhydramine HCl [Benadryl] 25 mg Capsule 75 mg PO HS RF: 0 venlafaxine 75 mg capsule,extended release 24hr 75 mg PO BID RF: 0 hydroxyzine HCl 50 mg tablet 50 - 100 mg PO HS PRN (Reason: Anxiety) RF: 0 gabapentin [Neurontin] 800 mg tablet 800 mg PO TID RF: 0 polyethylene glycol 3350 [Miralax] 17 gram/dose Powder 17 g PO DAILY PRN (Reason: Constipation) RF: 0 docusate sodium 100 mg Tablet 100 mg PO BID RF: 0 chlorpromazine 50 mg tablet 50 mg PO BID RF: 0 Referrals Referrals: Yvon Burleson MD [Primary Care Provider] -
[2019-09-20 20:48] LABS: Hemoglobin 14.1 g/dL (14.0-18.0); Mean Corpuscular Hemoglobin 29.4 pg (25-34); Mean Corpuscular Hgb Conc 33.6 g/dL (32-36); Mean Corpuscular Volume 87.5 fL (80-100); Mean Platelet Volume 11.1 fL (7.4-10.4); Platelet Count 316 K/uL (130-400); RDW Coefficient of Variation 13.6 % (11.5-14.5); RDW Standard Deviation 43.1 fL (36.4-46.3); White Blood Count 11.67 K/uL (4.8-10.8)
--- NOTE | 2019-09-20 20:48 | CT Scan Report ---
CT angio head w con HISTORY: Stroke evaluation TECHNIQUE: Multiaxial CT angiography of the head was performed IV contrast: None. Maximum intensit y projection images were also obtained. A dose lowering technique was utilized adhering to the princ iplArminda. COMPARISON: None. FINDINGS: There is no mass, hematoma, midline shift, or acute infarct. Visualized intracranial marketing pr intern al carotid arteries, distal vertebral arteries, and basilar artery are widely patent. There is no sig nificant stenosis, occlusion, or aneurysm seen within the bilateral ACAs, MCAs, or scale operator. IMPRESSION: No significant stenosis, occlusion, or aneurysm within the [place]. ACT 112: Negative or not required by law. The above report was generated using voice recognition software. It may contain grammatical, syntax or spelling errors. Electronically signed by: Steven Marie M.D. 09/20/2019 8:47 PM
[2019-09-20 20:50] LABS: Base Excess VBG -1.5 mEq/L; Oxygen Saturation VBG 67.7 %; pH VBG 7.35 (7.36-7.41)
--- NOTE | 2019-09-20 20:51 | CT Scan Report ---
CT angio neck with con HISTORY: Stroke evaluation TECHNIQUE: Multiaxial CT angiography of the neck was performed IV contrast: 100 cc All measurements w ere calculated based on NASCET criteria. Maximum intensity projection images were also obtained. A dose lowering technique was utilized adhering to the principles of ALARA. COMPARISON STUDY: None. FINDINGS: The aortic arch and proximal great vessels are widely patent. There is no significant sten osis, occlusion, or dissection identified within the bilateral common carotid, internal carotid, or v ertebral arteries. IMPRESSION: No significant stenosis, occlusion, or dissection identified within the carotid or vertebral arteries . ACT 112: Negative or not required by law. The above report was generated using voice recognition software. It may contain grammatical, syntax or spelling errors. Electronically signed by: Steven Marie M.D. 09/20/2019 8:49 PM
--- NOTE | 2019-09-20 20:54 | CT Scan Report ---
CT angio chest PE protocol CT DOSE: HISTORY: Chest pain. Dyspnea. ro PE TECHNIQUE: Multiaxial CT images of the chest were performed following the intravenous administration of contrast to evaluate the pulmonary arteries. Maximal intensity projection images were also obtaine d. A dose lowering technique was utilized adhering to the principles of ALARA. COMPARISON STUDY: None. FINDINGS: There is a normal caliber thoracic aorta with no evidence for dissection. There is no evide nce for pulmonary embolus. No pleural effusions. No pneumothorax. The liver and spleen are unremarkab le. No mediastinal or hilar lymphadenopathy. The central airways are patent. The lungs are clear. IMPRESSION: No evidence for pulmonary embolus. The lungs are clear. ACT 112: Negative or not required by law. The above report was generated using voice recognition software. It may contain grammatical, syntax or spelling errors. Electronically signed by: Steven Marie M.D. 09/20/2019 8:53 PM
--- NOTE | 2019-09-20 20:56 | CT Scan Report ---
CT cervical spine wo con CT DOSE: HISTORY: Trauma fall stroke TECHNIQUE: Multiaxial CT images of the cervical spine were performed and reformatted in the sagittal and coronal plane without the use of contrast. A dose lowering technique was utilized adhering to th e principles of ALARA. COMPARISON: None. FINDINGS: No fractures. No subluxation. Prevertebral soft tissues and the C1-C2 interval are intact. No pneumothorax. Muscle spasm with reversal of the cervical curvature. IMPRESSION: No fractures within the cervical spine. Muscle spasm ACT 112: Negative or not required by law. The above report was generated using voice recognition software. It may contain grammatical, syntax or spelling errors. Electronically signed by: Steven Marie M.D. 09/20/2019 8:55 PM
[2019-09-20] MEDS ORDERED: ASPIRIN CHEW 324 MG PO STA (20:58)
[2019-09-20 21:04] LABS: Partial Thromboplastin Time 26.6 Seconds (21.0-31.0); Prothrombin Time 10.9 Seconds (9.0-12.0)
[2019-09-20 21:06] LABS: Alanine Aminotransferase 59 U/L (12-78); Albumin Level 3.8 gm/dl (3.4-5.0); Aspartate Aminotransferase 28 U/L (15-37); BUN Creatinine Ratio 9.4 (10-20); Blood Urea Nitrogen 10 mg/dl (7-18); Calcium 9.3 mg/dl (8.5-10.1); Carbon Dioxide 28 mmol/L (21-32); Chloride 105 mmol/L (98-107); Creatinine Clr Calc Pharmacy 132.2 ml/min; Est GFR (African American) 105.1; Est GFR (Non-African American) 90.7; Glucose 113 mg/dl (70-99); Magnesium 1.8 mg/dl (1.8-2.4); Potassium 3.2 mmol/L (3.5-5.1); Sodium 140 mmol/L (136-145)
[2019-09-20 21:09] LABS: ALC (manual) 2.81 K/uL (1.2-3.4); ANC (manual) 8.36 K/uL (1.4-6.5); Basophils # (manual) 0.11 K/uL (0-0.2); Basophils % (manual) 0.9 %; Lymphocytes # (manual) 2.81 K/uL (1.2-3.4); Lymphocytes % (manual) 24.1 %; Monocytes % (manual) 3.4 %; Neutrophils # (manual) 8.36 K/uL (1.4-6.5); Neutrophils % (manual) 71.6 %; RBC Morphology Unremarkable
[2019-09-20 21:11] LABS: Albumin Globulin Ratio 0.9 (0.9-2); Alkaline Phosphatase 89 U/L (45-117); Bilirubin,Total 0.2 mg/dl (0.2-1); Globulin 4.1 gm/dl (2.5-4.0); Total Protein 7.9 gm/dl (6.4-8.2); Troponin I < 0.015 ng/ml (0-0.045)
[2019-09-20] MEDS ORDERED: NON-FORMULARY MEDICATION (Melatonin 5 MG) PO PRN (22:36)
[2019-09-20] MEDS ORDERED: PHARMACIST DISCHARGE MED REC CONSULT PRN (22:36)
[2019-09-20] MEDS ORDERED: NITROGLYCERIN SL 0.4 MG/TAB TAB SL PRN (22:36)
[2019-09-20] MEDS ORDERED: POLYETHYLENE (MIRALAX) 17 GM PACK PO PRN (22:36)
[2019-09-20] MEDS ORDERED: LABETALOL HCL IV 5 MG/ML 20ML IV PRN (22:36)
[2019-09-20] MEDS ORDERED: INFLUENZA ADMINISTRATION CHARGE ONE (22:48)
[2019-09-20] MEDS ORDERED: INFLUENZA VIRUS QUAD VACCINE 0.5 ML SYR IM ONE (22:48)
[2019-09-20] MEDS ORDERED: MAGNESIUM SULFATE / D5W 1 GM/100 ML BAG IV ONE (23:00)
[2019-09-20] MEDS ORDERED: LORazepam 0.5 MG/1 ML VIAL IV STA (23:30)
--- NOTE | 2019-09-20 23:40 | History and Physical Report ---
DATE OF ADMISSION: 09/20/2019 CHIEF COMPLAINT: Stroke-like symptoms. HISTORY OF PRESENT ILLNESS: This is a 43-year-old male with past medical history significant for hyperlipidemia, seizure disorder, history of migraines with aura, history of mood disorder, PTSD, tobacco use disorder, history of CVA, history of head injury, presents with stroke-like symptoms. Around 5:30 p.m., patient had found it difficult to speak, difficult to swallow and also some right facial droop. By the time he came to the ER, his right facial droop improved. Stroke alert was called. CT of the head and CTA of the head and neck are unremarkable. As per ER physician, [facility] stroke neurologist thought he was not a candidate for tPA. The patient's speech is also somewhat improved as per the , but the patient still has some difficulty swallowing. He is alert and oriented x3, able to answer all the questions. He states he took his blood pressure medication, but the blood pressure was high in the ER. Complains of headache. No blurred vision, no earache. He has some runny nose and he has some shortness of breath. No cough, no chest pain, no fevers, no sore throat. He says he vomited yesterday. No abdominal pain. His stools are always black. No blood in the stools. Normal bladder movements. No rash, no swelling in the legs. Currently resting comfortably. Blood pressure is somewhat running high. ALLERGIES: ASPIRIN CAUSES NAUSEA AND VOMITING, BEE VENOM, LATEX, NIACIN, PENICILLIN V. PAST MEDICAL HISTORY: As mentioned above. PAST SURGICAL HISTORY: Colonoscopy. MEDICATIONS: The patient is on baclofen 10 mg p.o. t.i.d., benztropine 1 mg p.o. daily, chlorpromazine 500 mg p.o. at bedtime, chlorpromazine 50 mg p.o. b.i.d., clonidine 0.5 mg p.o. daily at 4:00 p.m., Benadryl 75 p.o. at bedtime, Colace 100 mg p.o. b.i.d., gabapentin 800 mg p.o. t.i.d., hydralazine 50-100 mg p.o. at bedtime p.r.n., melatonin 5 mg p.o. at bedtime p.r.n., MiraLax 17 grams p.o. daily, prazosin 4 mg p.o. at bedtime, venlafaxine 75 mg p.o. b.i.d. FAMILY HISTORY: No family history in file. SOCIAL HISTORY: Smokes on average 1 pack a day for 28 years. Alcohol none. Smokes marijuana occasionally. REVIEW OF SYMPTOMS: As per HPI. Rest of the review of systems negative. PHYSICAL EXAMINATION: GENERAL: The patient is morbidly obese, not in acute distress. VITAL SIGNS: Temperature 36.5, pulse 104, respiratory rate 21, blood pressure 176/144, oxygen 95% on room air. HEENT: No pallor, no icterus. Pupils equal, round, reactive to light. NECK: No JVD, no neck masses, no carotid bruits. CARDIOVASCULAR: S1, S2, regular rate and rhythm. No murmur, no gallop. RESPIRATORY SYSTEM: Normal AP diameter. No accessory muscle use. No wheezing, no crackles. ABDOMEN: Soft, bowel sounds present, nontender, nondistended. CENTRAL NERVOUS SYSTEM: Cranial nerves II-XII grossly intact. Power 5/5 in all extremities. Sensation is intact, position sense intact. No pronator drift. Able to hold his extremities when lifted up. Coordination of movements normal. EXTREMITIES: No edema, no erythema. LABORATORY DATA: WBC 11.6, hemoglobin 14.1, hematocrit 42, platelets 316. PT 10.9, INR 1, APTT 36.6. Venous blood gas; pH of 7.3, pCO2 of 46, pO2 of 39, bicarbonate 24. Sodium 140, potassium 3.2, chloride 105, bicarbonate 28, BUN 10, creatinine 1, serum glucose 113, calcium 9.3, magnesium 1.8, total bilirubin 0.2, AST 28, ALT 15, alkaline phosphatase 89. Troponin I less than 0.015. IMAGING: CT of the head, no acute intracranial abnormality seen. Head CTA: No significant stenosis, occlusion, or aneurysm within the [place] of [place]. Neck CTA: No significant stenosis, occlusion, or dissection identified within carotid or vertebral arteries. Cervical spine CT: No fractures within the cervical spine. Chest CTA: No PE. Lungs are clear. EKG: Sinus tachy with occasional PVCs at a rate of 110. Nonspecific ST abnormalities. QTC of 668. ASSESSMENT AND PLAN: This is a 43-year-old male who presents with stroke-like symptoms. 1. Stroke-like symptoms with difficulty speaking, difficulty swallowing and initially facial droop but that is resolved. His speech is also improving, but he still has difficulties with dysphagia. His initial workup is negative. CT of the head and CTA of the head and neck are unremarkable. Blood pressure is running high; stroke alert was called and [facility] neurologist thought he is not a candidate for tPA. We will do full stroke workup with MRI scan and echocardiogram, monitor in telemetry floor, blood pressure control. Speech evaluation. Neurology evaluation in the morning. Closely monitor in telemetry floor. 2. History of hypertension. Continue his clonidine. We will place him on IV labetalol p.r.n. 3. History of hyperlipidemia. Currently not on medications. Follow the fasting lipid profile. We will continue with aspirin; he was given aspirin in the Emergency Room. 4. Mood disorder, posttraumatic stress disorder. Continue his home medications of chlorpromazine, venlafaxine, possibly on benztropine. 5. Tobacco use disorder, needs counseling. 6. Prolonged QT. We will replace the potassium and give a dose of magnesium. Avoid QT-prolonging drugs. The patient is on Thorazine and venlafaxine. We will monitor closely, follow the repeat EKG in morning. 7. History of traumatic cerebrovascular accident, seizure disorder, currently stable. 8. Deep venous thrombosis prophylaxis, sequential compression devices for now. DISPOSITION: Closely monitor in the tele floor. Level 1, full code. PT and OT prior to discharge. Social service to help with discharge planning. HOLLIS
[2019-09-21] MEDS: SODIUM CHLORIDE 0.9% 1000ML 1,000 ML IV SCH ×2 (00:23→14:17)
[2019-09-21] MEDS: POTASSIUM CHLORIDE / WTR 10 MEQ/100 ML PLCT IV SCH ×4 (00:27→04:06)
[2019-09-21] MEDS ORDERED: cloNIDine HCL 0.1 MG TAB PO ONE (05:42)
[2019-09-21 06:11] LABS: Basophils # (auto) 0.03 K/uL (0-0.2); Basophils % (auto) 0.3 %; Eosinophils # (auto) 0.06 K/uL (0-0.5); Eosinophils % (auto) 0.5 %; Hematocrit (blood only) 42.5 % (42-52); Hemoglobin 13.9 g/dL (14.0-18.0); Immature Granulocytes # (auto) 0.04 K/uL (0.00-0.02); Immature Granulocytes % (auto) 0.4 %; Lymphocytes # (auto) 2.51 K/uL (1.2-3.4); Lymphocytes % (auto) 22.4 %; Mean Corpuscular Hemoglobin 28.9 pg (25-34); Mean Corpuscular Hgb Conc 32.7 g/dL (32-36); Mean Corpuscular Volume 88.4 fL (80-100); Mean Platelet Volume 10.7 fL (7.4-10.4); Monocytes # (auto) 0.64 K/uL (0.11-0.59); Monocytes % (auto) 5.7 %; Neutrophils # (auto) 7.91 K/uL (1.4-6.5); Neutrophils % (auto) 70.7 %; Platelet Count 305 K/uL (130-400); RDW Coefficient of Variation 13.6 % (11.5-14.5); RDW Standard Deviation 44.3 fL (36.4-46.3); Red Blood Count 4.81 M/uL (4.7-6.1); White Blood Count 11.19 K/uL (4.8-10.8)
[2019-09-21] MEDS: METOPROLOL TARTRATE 1 MG/ML VIAL IV PRN (06:36)
[2019-09-21 06:49] LABS: BUN Creatinine Ratio 8.8 (10-20); Creatinine Clr Calc Pharmacy 130.3 ml/min; Est GFR (African American) 107.7; Est GFR (Non-African American) 92.9; Potassium 4.4 mmol/L (3.5-5.1)
--- NOTE | 2019-09-21 07:12 | Magnetic Resonance Report ---
Brain MRI WITHOUT CONTRAST HISTORY: Right-sided weakness. Dizziness. TECHNIQUE: Multiplanar multisequence MRI of the brain was performed without the use of contrast. COMPARISON STUDY: Head CT 09/20/2019. FINDINGS: There are no areas of restricted diffusion to suggest acute infarction. The midline structu res are intact. The paranasal sinuses are clear. The mastoid air cells are clear. The ventricles and sulci are within normal limits for age. There is no mass, hematoma, midline shift. The major vascular flow-voids at the skull base are well maintained. Small focus of encephalomalacia within the right a nterior temporal lobe. This may be due to an old injury. IMPRESSION: No acute intracranial abnormality. ACT 112: Negative or not required by law. Electronically signed by: Tony Aguirre M.D. 09/21/2019 7:11 AM
[2019-09-21 07:18] LABS: Estimated Average Glucose 148 mg/dl; Hemoglobin A1C 6.8 % (4.5-5.6)
[2019-09-21] MEDS ORDERED: SUMAtriptan succinate 6 MG/0.5 ML VIAL SQ ONE (08:03)
[2019-09-21] MEDS ORDERED: VENLAFAXINE HCL XR 75 MG CAPXR PO SCH (09:00)
[2019-09-21] MEDS ORDERED: BACLOFEN 10 MG TAB PO SCH ×2 (09:00→11:45)
[2019-09-21] MEDS: GABAPENTIN 800 MG TAB PO SCH ×3 (10:10→21:10)
[2019-09-21] MEDS: DOCUSATE SODIUM 100 MG CAP PO SCH ×2 (10:10→21:09)
[2019-09-21] MEDS: CHLORPROMAZINE HCL 25 MG TABLET PO SCH ×2 (10:11→14:18)
[2019-09-21] MEDS: ASPIRIN 81 MG ECTAB PO SCH (10:11)
[2019-09-21] MEDS ORDERED: HYDROmorphone INJ 0.5 MG/0.5 ML SYR IV STA (11:39)
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
--- NOTE | 2019-09-21 13:23 | Hospitalist Progress Note ---
Date of Service September 21, 2019 Assessment & Plan (1) Stroke-like symptoms: Presented with difficulty speaking, difficulty swallowing and initial questionable facial droop History of CVA and head injury in the past Was evaluated by stroke alert team and has been ruled out for acute stroke CT scan of head, head CTA, neck CTA, cervical spine CT and chest CTA were unremarkable. MRI of the brain did not show any stroke Echo: EF of 65 to 70%, mild LV hypertrophy and poorly visualized valvular structure without significant regurgitation or stenosis. Still has minimal slurred speech which is very difficult to quantify Appreciate neurology input and recommendation (2) Drug side effects: He has history of mood disorder, bipolar disorder, PTSD and anxiety Has been on multiple antipsychotic medications Current dysarthria, drowsiness could be secondary to medications overuse Psychiatry consulted-recommended to transfer to another room as the patient is having suicidal ideation (3) PTSD (post-traumatic stress disorder): As above Has suicidal ideation Placed on one-to-one observation Appreciate psychiatry input and recommendation (4) Migraine: History of migraine with aura She was admitted with sinus rhythm oral has been taking care of headache Wanted to have Dilaudid this morning Oral baclofen did not improve headache Dilaudid 0.5 mg intravenously 1 time was given Home medications have been started We will start magnesium oxide 400 mg and riboflavin 400 mg daily for headache No narcotics will be given to control headache Advised to wear CPAP at nighttime (5) Seizure disorder: No seizures observed Hypertension Controlled now Continue current medication DVT prophylaxis SCDs for now CODE STATUS Full Admission and Anticipated Discharge Date Admission Date: September 20, 2019 Subjective The patient was seen and examined in telemetry unit This 43-year-old obese male with significant past medical history of seizure disorder, migraines with aura, mood disorder, PTSD, history of head injury, tobacco use disorder presented to the emergency room with strokelike symptoms. He still has dysarthria and remains drowsy but denies any other symptoms except severe headache He has been ruled out for possible stroke and he wanted to sign out AMA if his headache is not controlled He was seen by the psychiatrist and was transferred to room 221 due to suicidal ideation Review of Systems Review of Systems: 1 systems reviewed and are unremarkable except as noted below Neurologic: Alert and awake. Pleasantly confused with dysarthria and drowsiness. Psychiatric: + irritability and + anxiety Physical Exam Physical Exam: Lying in bed comfortably Constitutional: well developed, well nourished and + obese Eyes: PERRL, conjunctivae normal, anicteric sclerae ENMT: external ear and nose normal, oropharynx normal Neck: trachea midline, no thyromegaly Respiratory: normal respiratory effort; no respiratory distress Auscultation: lungs clear to auscultation bilaterally Cardiovascular: Rate/Rhythm: regular rate and regular rhythm Heart Sounds: no murmur Gastrointestinal (Abdomen): Inspection/Auscultation: abdomen normal to inspection Percussion/Palpation: abdomen soft; abdomen nontender Musculoskeletal: No acute arthritis in any joints Neurologic: moves all extremities; no focal motor deficits Speech / Cognition: + abnormal speech (Dysarthria, drowsiness without any other signs of possible stroke) Motor/Sensory: + tremor (Minimal tremor on outstretched hands) Lymphatic: no cervical or axillary lymphadenopathy Results & Data ([facility]) Vital Signs (Past 12 Hours) Vital Signs Temp Pulse Pulse Resp BP BP BP 09/21/19 11:31 36.5 C 113 H 28 H 141/81 H 09/21/19 08:00 115 H 09/21/19 07:48 114 H 16 125/87 09/21/19 07:30 36.5 C 120 H 18 159/98 H 09/21/19 06:36 119 H 164/94 H 09/21/19 03:53 36.4 C L 119 H 21 164/94 H Pulse Ox 09/21/19 11:31 93 09/21/19 08:00 09/21/19 07:48 93 09/21/19 07:30 96 09/21/19 06:36 09/21/19 03:53 94 Laboratory Results Short CBC 09/20/19 09/21/19 Range/Units 20:27 05:44 WBC 11.67 H 11.19 H (4.8-10.8) K/uL Hgb 14.1 13.9 L (14.0-18.0) g/dL Hct 42.0 42.5 (42-52) % Plt Count 316 305 (130-400) K/uL BMP 09/20/19 09/21/19 20:27 05:44 Sodium 140 137 Potassium 3.2 L 4.4 D Chloride 105 108 H Carbon Dioxide 28 22 BUN 10 9 Creatinine 1.01 0.99 Glucose 113 H 124 H Calcium 9.3 9.0 Cardiac Enzymes 09/20/19 Range/Units 20:27 Troponin I < 0.015 (0-0.045) ng/ml Liver Function 09/20/19 Range/Units 20:27 Total Bilirubin 0.2 (0.2-1) mg/dl AST 28 (15-37) U/L ALT 59 (12-78) U/L Alkaline Phosphatase 89 (45-117) U/L Albumin 3.8 (3.4-5.0) gm/dl Medications Administered Current Inpatient Medications Acetaminophen (Tylenol) 650 mg PO Q4H PRN PRN Reason: Pain or Fever Stop: 10/20/19 22:35 Aspirin (Ecotrin Ectab) 81 mg PO QAM [facility] Stop: 10/21/19 08:59 Last Admin: 09/21/19 10:11 Dose: 81 mg Documented by: Baclofen (Lioresal) 10 mg PO BID [facility] Stop: 10/21/19 20:59 Benztropine Mesylate (Cogentin) 1 mg PO DAILY@1600 [facility] Stop: 10/21/19 15:59 Chlorpromazine HCl (Thorazine) 50 mg PO BID@0900,1300 [facility] Stop: 10/21/19 08:59 Last Admin: 09/21/19 10:11 Dose: 50 mg Documented by: Chlorpromazine HCl (Thorazine) 500 mg PO HS [facility] Stop: 10/21/19 20:59 Clonidine HCl (Catapres) 0.1 mg PO DAILY@1600 [facility] Stop: 10/21/19 15:59 Docusate Sodium (Colace) 100 mg PO BID [facility] Stop: 10/21/19 08:59 Last Admin: 09/21/19 10:10 Dose: 100 mg Documented by: Gabapentin (Neurontin) 800 mg PO TID [facility] Stop: 10/21/19 08:59 Last Admin: 09/21/19 10:10 Dose: 800 mg Documented by: Hydroxyzine HCl (Vistaril) 50 - 100 mg PO HS PRN PRN Reason: Anxiety Stop: 10/20/19 22:35 Sodium Chloride (Nss 1000ml) 1,000 mls @ 80 mls/hr IV .[id number] [facility] Stop: 10/20/19 22:35 Last Admin: 09/21/19 00:23 Dose: 80 mls/hr Documented by: Metoprolol Tartrate (Lopressor) 2.5 mg IV Q4 PRN PRN Reason: Hypertension Stop: 10/21/19 07:59 Last Admin: 09/21/19 06:36 Dose: 2.5 mg Documented by: Miscellaneous Information (Pharmacist Discharge Med Rec Consult) 1 ea N/A UD PRN PRN Reason: Consult Stop: 10/20/19 22:35 Nitroglycerin (Nitrostat) 0.4 mg SL UD PRN PRN Reason: Chest Pain Stop: 10/20/19 22:35 Polyethylene Glycol (Miralax Powder Packet) 17 gm PO DAILY PRN PRN Reason: Constipation Stop: 10/20/19 22:35 Prazosin HCl (Prazosin Hcl) 4 mg PO HS [facility] Stop: 10/21/19 20:59 Venlafaxine HCl (Effexor Extended Release) 75 mg PO BID [facility] Stop: 10/21/19 08:59 Last Admin: 09/21/19 10:10 Dose: 75 mg Documented by:
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
--- NOTE | 2019-09-21 14:25 | Electrocardiogram Report ---
Test Reason : Blood Pressure : / mmHG Vent. Rate : 110 BPM Atrial Rate : 110 BPM P-R Int : 148 ms QRS Dur : 094 ms QT Int : 494 ms P-R-T Axes : 053 047 096 degrees QTc Int : 668 ms Poor data quality, interpretation may be adversely affected Sinus tachycardia with occasional Premature ventricular complexes Nonspecific ST and T wave abnormality Abnormal ECG When compared with ECG of 04-MAY-2019 16:17, Premature ventricular complexes are now Present Confirmed by Tang Werner ([id number]) on 09/21/2019 2:24:48 PM Referred By: REFERRED SELF Confirmed By:Rc Werner
--- NOTE | 2019-09-21 14:25 | Electrocardiogram Report ---
Test Reason : Blood Pressure : / mmHG Vent. Rate : 106 BPM Atrial Rate : 106 BPM P-R Int : 170 ms QRS Dur : 078 ms QT Int : 348 ms P-R-T Axes : 044 036 102 degrees QTc Int : 462 ms Sinus tachycardia Nonspecific ST and T wave abnormality Abnormal ECG When compared with ECG of 20-SEP-2019 20:26, (unconfirmed) Premature ventricular complexes are no longer Present QT has shortened Confirmed by Tang Werner ([id number]) on 09/21/2019 2:24:42 PM Referred By: REFERRED SELF Confirmed By:Rc Werner
--- NOTE | 2019-09-21 14:30 | Electrocardiogram Report ---
Test Reason : Blood Pressure : / mmHG Vent. Rate : 113 BPM Atrial Rate : 113 BPM P-R Int : 162 ms QRS Dur : 082 ms QT Int : 346 ms P-R-T Axes : 036 017 095 degrees QTc Int : 474 ms Sinus tachycardia Nonspecific ST and T wave abnormality Abnormal ECG Confirmed by Tang Werner ([id number]) on 09/21/2019 2:30:23 PM Referred By: REFERRED SELF Confirmed By:Rc Werner
[2019-09-21] MEDS: BENZTROPINE MESYLATE 1 MG TAB PO SCH (16:59)
[2019-09-21] MEDS: cloNIDine HCL 0.1 MG TAB PO SCH (16:59)
[2019-09-21] MEDS: CHLORPROMAZINE HCL 100 MG TABLET PO SCH (21:09)
[2019-09-21] MEDS: BACLOFEN 10 MG TAB PO SCH (21:10)
[2019-09-21] MEDS: PRAZOSIN HCL 1 MG CAP PO SCH (21:10)
[2019-09-22] MEDS: SODIUM CHLORIDE 0.9% 1000ML 1,000 ML IV SCH ×2 (02:50→15:08)
[2019-09-22 05:42] LABS: Basophils # (auto) 0.02 K/uL (0-0.2); Basophils % (auto) 0.2 %; Eosinophils # (auto) 0.12 K/uL (0-0.5); Eosinophils % (auto) 1.3 %; Hematocrit (blood only) 39.1 % (42-52); Immature Granulocytes # (auto) 0.03 K/uL (0.00-0.02); Immature Granulocytes % (auto) 0.3 %; Lymphocytes # (auto) 2.71 K/uL (1.2-3.4); Lymphocytes % (auto) 28.3 %; Mean Corpuscular Hemoglobin 29.1 pg (25-34); Mean Corpuscular Hgb Conc 33.2 g/dL (32-36); Mean Corpuscular Volume 87.7 fL (80-100); Mean Platelet Volume 10.6 fL (7.4-10.4); Monocytes # (auto) 0.52 K/uL (0.11-0.59); Monocytes % (auto) 5.4 %; Neutrophils # (auto) 6.16 K/uL (1.4-6.5); Neutrophils % (auto) 64.5 %; Platelet Count 259 K/uL (130-400); RDW Coefficient of Variation 13.6 % (11.5-14.5); RDW Standard Deviation 43.5 fL (36.4-46.3); Red Blood Count 4.46 M/uL (4.7-6.1); White Blood Count 9.56 K/uL (4.8-10.8)
[2019-09-22 06:08] LABS: BUN Creatinine Ratio 13.3 (10-20); Calcium 8.2 mg/dl (8.5-10.1); Creatinine Clr Calc Pharmacy 137.2 ml/min; Est GFR (African American) 114.6; Est GFR (Non-African American) 98.9; Potassium 3.9 mmol/L (3.5-5.1)
[2019-09-22] MEDS: DOCUSATE SODIUM 100 MG CAP PO SCH ×2 (08:19→20:41)
[2019-09-22] MEDS: ASPIRIN 81 MG ECTAB PO SCH (08:20)
[2019-09-22] MEDS: BACLOFEN 10 MG TAB PO SCH ×2 (08:20→20:41)
[2019-09-22] MEDS: CHLORPROMAZINE HCL 25 MG TABLET PO SCH ×2 (08:20→13:19)
[2019-09-22] MEDS: GABAPENTIN 800 MG TAB PO SCH ×3 (08:20→20:41)
[2019-09-22] MEDS: VENLAFAXINE HCL XR 150 MG CAPXR PO SCH (08:23)
[2019-09-22 13:31] LABS: Amphetamines+Metham, Urine Neg (Neg); Barbiturates, Urine Neg (Neg); Benzodiazepine, Urine Neg (Neg); Cocaine, Urine Neg (Neg); MDMA (Ecstacy), Urine Neg (Neg); Methadone, Urine Neg (Neg); Opiate, Urine Neg (Neg); Phencyclidine, Urine Neg (Neg)
[2019-09-22] MEDS: ACETAMINOPHEN 325 MG TAB PO PRN (13:42)
[2019-09-22] MEDS: METOPROLOL TARTRATE 1 MG/ML VIAL IV PRN (13:43)
[2019-09-22] MEDS ORDERED: HydrALAZINE HCL 20 MG/ML VIAL IV STA (14:56)
--- NOTE | 2019-09-22 14:56 | Hospitalist Progress Note ---
Date of Service September 22, 2019 Assessment & Plan (1) Depression: reported SI. Plan for inpatient therapy at the [facility]. Clinically improved, however, needs additional blood pressure control. Appreciate mental health team involvement in his care. (2) HTN (hypertension): Uncontrolled. Gave additional one time support with hydralazine and this improved. Cont daily clonidine per home regimen. Avoid excessive IVF if unnecessary. (3) Transient ischemic attack (TIA): Workup for acute stroke negative. No residual deficits present subjectively or objectively. Cont ASA 81mg daily. Reports h/o CVA. Will need to confirm records on this but may consider statin therapy, also. (4) PTSD (post-traumatic stress disorder): prazosin qHS per home regimen. Cont outpatient counseling. (5) Seizure disorder: avoid Tramadol. Pt not on AEDs per home regimen. (6) DVT prophylaxis: Lovenox Full Dispo-to inpatient psychiatric floor, [facility], in am or when blood pressure is more under control. Charleen Fuentes DO [facility] Hospitalist Admission and Anticipated Discharge Date Admission Date: September 20, 2019 Anticipated date of discharge: 09/23/19 Subjective pt reports fatigue otherwise he denies fevers, chest pain, SOB initially reported difficulty finding and articulating words, bilateral leg weakness, gait instability--all symptoms improved within 24 hours and have not returned. reports a h/o CVA with no residual deficits at baseline. states that he wants to go to the [facility] and get back into counseling. Review of Systems Review of Systems: All systems reviewed & are unremarkable except as noted in Subjective Physical Exam Physical Exam: CONSTITUTIONAL: obese, vitals as above, generally well- appearing but fatigued EYES: normal conjunctivae, no scleral icterus ENT: external ear and nose normal, oropharynx clear,MMM RESPIRATORY: clear to auscultation bilaterally, no crackles, rales or wheezes, normal respiratory effort CARDIOVASCULAR: regular rate and rhythm, S1 and 2 heard without murmurs, gallops or rubs, no JVD, no peripheral edema, no carotid bruits GASTROINTESTINAL: soft, nontender, nondistended MUSCULOSKELETAL: strength 5/5 throughout, head is normocephalic and atraumatic SKIN: warm and dry NEUROLOGIC: patellar DTRs 2+ bilat. PERRL, EOMI, no facial palsy, no dysarthria. CN 2-12 grossly intact, normal cognition, normal speech, no tremor. No gross focal deficits. PSYCHIATRIC: alert cooperative and oriented to person, place and time. Results & Data Results & Data ([facility]) Vital Signs (Past 12 Hours) Vital Signs Temp Pulse Pulse Resp BP BP BP 09/22/19 14:49 102 H 162/115 H 167/117 H 09/22/19 13:43 109 H 180/110 H 09/22/19 13:35 180/110 H 09/22/19 13:31 109 H 159/119 H 09/22/19 11:08 36.7 C 109 H 22 150/100 H 09/22/19 07:00 36.6 C 108 H 22 155/73 H 09/22/19 05:08 36.5 C 104 H 19 151/101 H Pulse Ox 09/22/19 14:49 09/22/19 13:43 09/22/19 13:35 09/22/19 13:31 09/22/19 11:08 96 09/22/19 07:00 95 09/22/19 05:08 93 Laboratory Results Short CBC 09/22/19 Range/Units 05:21 WBC 9.56 (4.8-10.8) K/uL Hgb 13.0 L (14.0-18.0) g/dL Hct 39.1 L (42-52) % Plt Count 259 (130-400) K/uL BMP 09/22/19 05:21 Sodium 137 Potassium 3.9 Chloride 109 H Carbon Dioxide 23 BUN 13 Creatinine 0.94 Glucose 110 H Calcium 8.2 L Medications Administered Current Inpatient Medications Acetaminophen (Tylenol) 650 mg PO Q4H PRN PRN Reason: Pain or Fever Stop: 10/20/19 22:35 Last Admin: 09/22/19 13:42 Dose: 650 mg Documented by: Aspirin (Ecotrin Ectab) 81 mg PO QAM [facility] Stop: 10/21/19 08:59 Last Admin: 09/22/19 08:20 Dose: 81 mg Documented by: Baclofen (Lioresal) 10 mg PO BID [facility] Stop: 10/21/19 20:59 Last Admin: 09/22/19 08:20 Dose: 10 mg Documented by: Benztropine Mesylate (Cogentin) 1 mg PO DAILY@1600 [facility] Stop: 10/21/19 15:59 Last Admin: 09/21/19 16:59 Dose: 1 mg Documented by: Chlorpromazine HCl (Thorazine) 50 mg PO BID@0900,1300 [facility] Stop: 10/21/19 08:59 Last Admin: 09/22/19 13:19 Dose: 50 mg Documented by: Chlorpromazine HCl (Thorazine) 500 mg PO HS [facility] Stop: 10/21/19 20:59 Last Admin: 09/21/19 21:09 Dose: 500 mg Documented by: Clonidine HCl (Catapres) 0.1 mg PO DAILY@1600 [facility] Stop: 10/21/19 15:59 Last Admin: 09/21/19 16:59 Dose: 0.1 mg Documented by: Docusate Sodium (Colace) 100 mg PO BID [facility] Stop: 10/21/19 08:59 Last Admin: 09/22/19 08:19 Dose: 100 mg Documented by: Gabapentin (Neurontin) 800 mg PO TID [facility] Stop: 10/21/19 08:59 Last Admin: 09/22/19 13:19 Dose: 800 mg Documented by: Hydroxyzine HCl (Vistaril) 50 - 100 mg PO HS PRN PRN Reason: Anxiety Stop: 10/20/19 22:35 Miscellaneous Information (Pharmacist Discharge Med Rec Consult) 1 ea N/A UD PRN PRN Reason: Consult Stop: 10/20/19 22:35 Nitroglycerin (Nitrostat) 0.4 mg SL UD PRN PRN Reason: Chest Pain Stop: 10/20/19 22:35 Polyethylene Glycol (Miralax Powder Packet) 17 gm PO DAILY PRN PRN Reason: Constipation Stop: 10/20/19 22:35 Prazosin HCl (Prazosin Hcl) 4 mg PO HS [facility] Stop: 10/21/19 20:59 Last Admin: 09/21/19 21:10 Dose: 4 mg Documented by: Venlafaxine HCl (Effexor Extended Release) 150 mg PO QAM [facility] Stop: 10/22/19 08:59 Last Admin: 09/22/19 08:23 Dose: 150 mg Documented by:
[2019-09-22] MEDS: cloNIDine HCL 0.1 MG TAB PO SCH (15:53)
[2019-09-22] MEDS: BENZTROPINE MESYLATE 1 MG TAB PO SCH (15:53)
[2019-09-22] MEDS: guaiFENesin 600 MG TABCR PO PRN (18:39)
[2019-09-22] MEDS: CHLORPROMAZINE HCL 100 MG TABLET PO SCH (20:41)
[2019-09-22] MEDS: PRAZOSIN HCL 1 MG CAP PO SCH (20:42)
[2019-09-22] MEDS ORDERED: ZOLPIDEM TARTRATE 5 MG TAB PO PRN (22:36)
[2019-09-23] MEDS ORDERED: SODIUM CHLORIDE 0.9% 1000ML 500 ML IV ONE (06:48)
[2019-09-23 07:24] LABS: Basophils # (auto) 0.03 K/uL (0-0.2); Basophils % (auto) 0.3 %; Eosinophils # (auto) 0.14 K/uL (0-0.5); Eosinophils % (auto) 1.4 %; Hematocrit (blood only) 40.4 % (42-52); Hemoglobin 13.2 g/dL (14.0-18.0); Immature Granulocytes # (auto) 0.02 K/uL (0.00-0.02); Immature Granulocytes % (auto) 0.2 %; Lymphocytes # (auto) 1.98 K/uL (1.2-3.4); Lymphocytes % (auto) 20.5 %; Mean Corpuscular Hemoglobin 28.8 pg (25-34); Mean Corpuscular Hgb Conc 32.7 g/dL (32-36); Mean Corpuscular Volume 88.2 fL (80-100); Mean Platelet Volume 10.4 fL (7.4-10.4); Monocytes % (auto) 6.2 %; Neutrophils % (auto) 71.4 %; Platelet Count 275 K/uL (130-400); RDW Coefficient of Variation 13.6 % (11.5-14.5); RDW Standard Deviation 43.7 fL (36.4-46.3); Red Blood Count 4.58 M/uL (4.7-6.1); White Blood Count 9.67 K/uL (4.8-10.8)
[2019-09-23] MEDS: GABAPENTIN 800 MG TAB PO SCH ×2 (07:30→13:13)
[2019-09-23] MEDS: guaiFENesin 600 MG TABCR PO PRN (07:30)
[2019-09-23] MEDS: CHLORPROMAZINE HCL 25 MG TABLET PO SCH ×2 (07:31→13:13)
[2019-09-23] MEDS: ASPIRIN 81 MG ECTAB PO SCH (07:31)
[2019-09-23] MEDS: VENLAFAXINE HCL XR 150 MG CAPXR PO SCH (07:31)
[2019-09-23] MEDS: BACLOFEN 10 MG TAB PO SCH (07:32)
[2019-09-23] MEDS: DOCUSATE SODIUM 100 MG CAP PO SCH (07:37)
[2019-09-23] MEDS: ACETAMINOPHEN 325 MG TAB PO PRN (07:37)
[2019-09-23 07:45] LABS: Calcium 8.7 mg/dl (8.5-10.1); Est GFR (African American) 122.5; Est GFR (Non-African American) 105.7
[2019-09-23] MEDS ORDERED: ENOXAPARIN INJ 40 MG/0.4 ML SYR SQ SCH (09:00)
[2019-09-23] MEDS ORDERED: STROKE PATIENT DISCHARGE STA (12:29)
--- NOTE | 2019-09-23 12:32 | Discharge Summary ---
Date of Service September 23, 2019 Admission HPI Per Admitting Provider HISTORY OF PRESENT ILLNESS: This is a 43-year-old male with past medical history significant for hyperlipidemia, seizure disorder, history of migraines with aura, history of mood disorder, PTSD, tobacco use disorder, history of CVA, history of head injury, presents with stroke-like symptoms. Around 5:30 p.m., patient had found it difficult to speak, difficult to swallow and also some right facial droop. By the time he came to the ER, his right facial droop improved. Stroke alert was called. CT of the head and CTA of the head and neck are unremarkable. As per ER physician, [place] stroke neurologist thought he was not a candidate for tPA. The patient's speech is also somewhat improved as per the , but the patient still has some difficulty swallowing. He is alert and oriented x3, able to answer all the questions. He states he took his blood pressure medication, but the blood pressure was high in the ER. Complains of headache. No blurred vision, no earache. He has some runny nose and he has some shortness of breath. No cough, no chest pain, no fevers, no sore throat. He says he vomited yesterday. No abdominal pain. His stools are always black. No blood in the stools. Normal bladder movements. No rash, no swelling in the legs. Currently resting comfortably. Blood pressure is somewhat running high. Admission Exam Per Admitting Provider PHYSICAL EXAMINATION: GENERAL: The patient is morbidly obese, not in acute distress. VITAL SIGNS: Temperature 36.5, pulse 104, respiratory rate 21, blood pressure 176/144, oxygen 95% on room air. HEENT: No pallor, no icterus. Pupils equal, round, reactive to light. NECK: No JVD, no neck masses, no carotid bruits. CARDIOVASCULAR: S1, S2, regular rate and rhythm. No murmur, no gallop. RESPIRATORY SYSTEM: Normal AP diameter. No accessory muscle use. No wheezing, no crackles. ABDOMEN: Soft, bowel sounds present, nontender, nondistended. CENTRAL NERVOUS SYSTEM: Cranial nerves II-XII grossly intact. Power 5/5 in all extremities. Sensation is intact, position sense intact. No pronator drift. Able to hold his extremities when lifted up. Coordination of movements normal. EXTREMITIES: No edema, no erythema. Principal Diagnosis TIA Depression KAUSHIK Smoking HTN Discharge Exam CONSTITUTIONAL: obese, vitals as above, generally well-appearing, fatigue has resolved, sitting up in chair eating his lunch. EYES: normal conjunctivae, no scleral icterus ENT: external ear and nose normal, oropharynx clear, MMM RESPIRATORY: clear to auscultation bilaterally, no crackles, rales or wheezes, normal respiratory effort CARDIOVASCULAR: regular rate and rhythm, S1 and 2 heard without murmurs, gallops or rubs, no JVD, no peripheral edema MUSCULOSKELETAL: strength 5/5 throughout, head is normocephalic and atraumatic SKIN: warm and dry NEUROLOGIC: no facial palsy, no dysarthria. CN 2-12 grossly intact, normal cognition, normal speech, no tremor. No gross focal deficits. PSYCHIATRIC: alert cooperative and oriented to person, place and time. Discharge Data Allergies Allergy/AdvReac Type Severity Reaction Status Date / Time latex Allergy Intermediate rash Verified 09/20/19 20:27 niacin Allergy Intermediate burning Verified 09/20/19 20:27 sensation Penicillins Allergy Intermediate difficult Verified 09/20/19 20:27 to breathe aspirin Allergy Unknown nausea & Verified 09/20/19 20:25 vomiting bee venom protein (honey bee) Allergy Difficulty Verified 09/20/19 20:27 Breathing Consultations 09/20/19 20:59 ED Decision to Admit Stat 09/20/19 22:36 Consult Case Management - Discharge Planning Routine Consult Case Management - Discharge Planning Routine 09/21/19 08:00 Consult Neurology Routine 09/21/19 09:57 Consult Psychiatry Routine Ordered Studies 09/20/19 20:01 CT angio head w con Stat CT angio neck with con Stat CT head/brain wo con Stat 09/20/19 20:10 CT cervical spine wo con Stat 09/20/19 20:14 CT angio chest PE protocol Stat 09/20/19 22:36 MR brain wo con Urgent Hospital Course (1) Depression: (2) HTN (hypertension): (3) Transient ischemic attack (TIA): (4) PTSD (post-traumatic stress disorder): (5) KAUSHIK (obstructive sleep apnea): (6) Smoking: (7) Seizure disorder: 43-year-old man with history of stroke presented to the ER with strokelike symptoms including right-sided weakness and garbled speech. Blood pressure was elevated and the patient had reportedly taken chlorpromazine and baclofen prior to arrival. He CT brain revealed no acute changes and a CTA of the head revea led no occlusion or stenosis. A stroke alert was called and per [facility], medication side effect versus hypertensive urgency was suspected as a cause of symptoms. Suspicion for stroke or TIA was low and blood pressure management with observation was recommended. He was admitted to the hospitalist service and neurology was consulted. Work-up included an MRI revealing no acute intracranial findings and a CTA of the neck with no acute stenosis or occlusion. An echocardiogram revealed an EF of 65 to 70% with no evidence of interatrial shunting. He did report persistent headaches and was encouraged to wear CPAP for which he has been noncompliant as a treatment for obstructive sleep apnea. He reports being claustrophobic and was unable to tolerate the mask. Additional headache management recommendations included daily magnesium oxide 400 mg and riboflavin 400 mg as needed. He notably was already taking gabapentin at high doses for restless leg syndrome and this can also be helpful for his headaches. Psychiatry was consulted as the patient admitted he had an active suicidal plan to overdose on his medications if he was discharged. Inpatient mental health treatment was recommended at time of medical clearance. He stayed an additional day for management of high blood pressure which was stabilized. At time of discharge he was hemodynamically stable and afebrile and tolerating p.o. He was mentating and ambulating at baseline and had no residual neurologic deficits. Blood pressure was under good control for 24 hours. Heart rate remained in the low 100s which he states is a known issue for him, and something he has seen a program paraprofessional for in the past. He was considered to have had a TIA and baby aspirin was recommended. He also noted that he was taking Lipitor 20 mg nightly at home in the med rec from home was updated. Both of these agents would be recommended for secondary prophylaxis of stroke moving forward. Close primary care follow-up was recommended to discuss additional KAUSHIK treatment options with him including UPPP or nasal mask, reassessment of his blood pressure after discharge from mental health facility and titration of medicine occasions as needed, and continued efforts to help him quit smoking and stay quit. He also reported noncompliance with AED medications, which should be reviewed with his primary care provider or regular Neurologist. Total Time Total Time Spent Total Time Spent (In Minutes): 60 Total Time Includes: Examination of the Patient, Discharge Planning, Medication Reconciliation and Communication With Other Providers Discharge Plan Discharge Items Patient Disposition: Transfer Behavioral Health Fac Reason For Visit: CVA Discharge Diagnosis: TIA Depression Condition on Discharge: Good Goals: Stop smoking Discuss restarting seizure medication with primary care physician Consider alternative therapies for sleep apnea Activity: Resume your previous activity Non-emergency contact: Primary Care Provider Call non-emergency contact if: you have any medication questions, your symptoms worsen, your pain is not controlled, your pain is worsening, your pain is unusual for you, your pain is concerning for you and you have a fever Follow-up/Referrals: Yvon Burleson MD [Primary Care Provider] - Diet: Low Sodium (2gm) Addtl Attending Provider Instructions: Please take all medications as instructed on discharge list below. You are being started on a baby aspirin to help prevent another stroke in the future. It is recommended that you follow-up with your primary care physician (PCP) within one week of discharge from the [facility]. Topics to discuss would be compliance with your seizure medications, helping you in your efforts to continue to stay quit from tobacco, and discussing other options for the treatment of obstructive sleep apnea with you such as a nasal mask or referral to a specialist to consider a UPPP procedure. Blood pressure will be rechecked and discussed at this time, also. It is strongly recommended that you quit smoking completely as this is bad for your health. It was a pleasure taking care of you! Please call if you have any questions or problems. You can reach a [facility] hospitalist on duty at [facility] 24 hours a day by calling [phone]. Take care of yourself. Charleen Fuentes DO [facility] Pending Studies at Discharge: No Stand-Alone Forms: My [facility], Smoking Cessation Skilled Items DNR: No Lines: None Urinary Catheter: No Medications and DC Order Prescriptions: New aspirin 81 mg tablet,delayed release (DR/EC) 81 mg PO DAILY Qty: 90 RF: 1 Continued clonidine HCl 0.1 mg tablet 0.1 mg PO DAILY@1600 RF: 0 baclofen 10 mg tablet 10 mg PO TID RF: 0 prazosin 2 mg capsule 4 mg PO HS RF: 0 benztropine 1 mg Tablet 1 mg PO DAILY@1600 RF: 0 chlorpromazine 100 mg tablet 500 mg PO HS RF: 0 hydroxyzine HCl 50 mg tablet 50 - 100 mg PO HS PRN (Reason: Anxiety) RF: 0 gabapentin [Neurontin] 800 mg tablet 800 mg PO TID RF: 0 polyethylene glycol 3350 [Miralax] 17 gram/dose Powder 17 g PO DAILY PRN (Reason: Constipation) RF: 0 docusate sodium 100 mg Tablet 100 mg PO BID RF: 0 chlorpromazine 50 mg tablet 50 mg PO BID RF: 0 diphenhydramine HCl [Benadryl] 25 mg Capsule 75 mg PO HS RF: 0 melatonin 5 mg Tablet 5 mg PO HS PRN (Reason: Sleep) RF: 0 venlafaxine 150 mg Capsule,Extended Release 24hr 150 mg PO QAM RF: 0 atorvastatin 20 mg Tablet 20 mg PO HS RF: 0 Discharge Orders: Discharge Order (Routine); Ordered 09/23/19 Ordered By: Charleen Fuentes Admission Data Admit Date/Time: 09/22/19 14:57 Attending Provider: Charleen Fuentes Admit Provider: Aba Choudhary Primary Care Provider: Yvon Burleson Other Providers: Aba Choudhary ; Wendy Thompson ; Puma Lockwood ; Wendy Helm ; Peña Kim ; Tri Bradley
[2019-09-23] MEDS: cloNIDine HCL 0.1 MG TAB PO SCH (16:24)
[2019-09-23] MEDS: BENZTROPINE MESYLATE 1 MG TAB PO SCH (16:24)
== END 2019-09-23 18:55 | DRG 69 ==
LOC: ED 20:00 → 2S 20:00 → SUATTDRO 22:02 → 2S 22:20

== ENCOUNTER 2020-04-28 23:13 | Inpatient (IN) ==
[2020-04-28] MEDS ORDERED: SODIUM CHLORIDE 0.9% 1000ML 1,000 ML IV ONE (23:27)
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
[2020-04-28 23:38] LABS: Basophils # (auto) 0.04 K/uL (0-0.2); Basophils % (auto) 0.3 %; Eosinophils # (auto) 0.12 K/uL (0-0.5); Eosinophils % (auto) 0.9 %; Hematocrit (blood only) 40.7 % (42-52); Hemoglobin 13.4 g/dL (14.0-18.0); Immature Granulocytes # (auto) 0.05 K/uL (0.00-0.02); Immature Granulocytes % (auto) 0.4 %; Lymphocytes # (auto) 4.02 K/uL (1.2-3.4); Lymphocytes % (auto) 29.5 %; Mean Corpuscular Hemoglobin 29.3 pg (25-34); Mean Corpuscular Hgb Conc 32.9 g/dL (32-36); Mean Corpuscular Volume 88.9 fL (80-100); Mean Platelet Volume 11.3 fL (7.4-10.4); Monocytes # (auto) 1.04 K/uL (0.11-0.59); Monocytes % (auto) 7.6 %; Neutrophils # (auto) 8.38 K/uL (1.4-6.5); Neutrophils % (auto) 61.3 %; Platelet Count 283 K/uL (130-400); RDW Coefficient of Variation 13.3 % (11.5-14.5); RDW Standard Deviation 43.3 fL (36.4-46.3); Red Blood Count 4.58 M/uL (4.7-6.1); White Blood Count 13.65 K/uL (4.8-10.8)
[2020-04-28 23:58] LABS: Prothrombin Time 10.7 Seconds (9.0-12.0)
[2020-04-29 00:02] LABS: Acetaminophen < 2 ug/ml (10-30); Salicylate 2.5 mg/dl (2.8-20)
[2020-04-29 00:05] LABS: Alanine Aminotransferase 54 U/L (12-78); Albumin Level 3.5 gm/dl (3.4-5.0); Aspartate Aminotransferase 18 U/L (15-37); BUN Creatinine Ratio 15.4 (10-20); Bilirubin Direct < 0.1 mg/dl (0-0.2); Blood Urea Nitrogen 14 mg/dl (7-18); Calcium 8.5 mg/dl (8.5-10.1); Carbon Dioxide 25 mmol/L (21-32); Chloride 113 mmol/L (98-107); Creatinine Clr Calc Pharmacy 144.6 ml/min; Est GFR (African American) 116.8; Est GFR (Non-African American) 100.8; Glucose 97 mg/dl (70-99); Lipase 117 U/L (73-393); Potassium 3.8 mmol/L (3.5-5.1); Sodium 143 mmol/L (136-145)
[2020-04-29] MEDS: MAGNESIUM SULFATE / D5W 1 GM/100 ML BAG IV SCH ×2 (00:05→00:36)
[2020-04-29 00:08] LABS: Alkaline Phosphatase 82 U/L (45-117); Bilirubin,Total < 0.1 mg/dl (0.2-1); Creatine Kinase 133 U/L (39-308); Total Protein 7.6 gm/dl (6.4-8.2); Troponin I < 0.015 ng/ml (0-0.045)
[2020-04-29 00:45] LABS: Appearance Urine Clear (Clear); Bilirubin Urine Negative (Negative); Blood Urine Negative (Negative); Color Urine Yellow; Glucose Urine UA Negative (Negative); Ketones Urine Negative (Negative); Leukocyte Esterase Urine Negative (Negative); Nitrite Urine Negative (Negative); Protein Urine Negative (Negative); Urobilinogen Urine Negative (Negative)
[2020-04-29 01:05] LABS: Amphetamines+Metham, Urine Neg (Neg); Barbiturates, Urine Neg (Neg); Benzodiazepine, Urine Pos (Neg); Cocaine, Urine Neg (Neg); MDMA (Ecstacy), Urine Neg (Neg); Methadone, Urine Neg (Neg); Opiate, Urine Neg (Neg); Phencyclidine, Urine Neg (Neg)
[2020-04-29] MEDS ORDERED: ICU PROTOCOL FOR HYPERGLYCEMIA PRN (03:12)
[2020-04-29] MEDS ORDERED: SODIUM CHLORIDE 0.9% 1000ML 1,000 ML IV SCH (03:12)
[2020-04-29] MEDS ORDERED: LORazepam 1 MG/2 ML VIAL IV PRN (03:12)
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
[2020-04-29 04:01] LABS: Base Excess ABG -3.2 mEq/L (-9-1.8); HCO3 ABG 21 mmol/L (19-24); Oxygen Saturation ABG 96.6 % (90-95); PCO2 ABG 36 mmHg (35-46); PO2 ABG 86 mmHg (80-95); pH ABG 7.39 (7.35-7.45)
[2020-04-29 04:08] LABS: Allen Test Pos (Pos)
[2020-04-29 04:36] LABS: Basophils # (auto) 0.03 K/uL (0-0.2); Basophils % (auto) 0.2 %; Eosinophils # (auto) 0.06 K/uL (0-0.5); Eosinophils % (auto) 0.4 %; Hematocrit (blood only) 37.5 % (42-52); Hemoglobin 12.2 g/dL (14.0-18.0); Immature Granulocytes # (auto) 0.05 K/uL (0.00-0.02); Immature Granulocytes % (auto) 0.4 %; Lymphocytes # (auto) 2.42 K/uL (1.2-3.4); Mean Corpuscular Hemoglobin 29.5 pg (25-34); Mean Corpuscular Hgb Conc 32.5 g/dL (32-36); Mean Corpuscular Volume 90.6 fL (80-100); Mean Platelet Volume 10.9 fL (7.4-10.4); Monocytes # (auto) 0.75 K/uL (0.11-0.59); Monocytes % (auto) 5.6 %; Neutrophils # (auto) 10.15 K/uL (1.4-6.5); Neutrophils % (auto) 75.4 %; Platelet Count 281 K/uL (130-400); RDW Coefficient of Variation 13.5 % (11.5-14.5); RDW Standard Deviation 44.5 fL (36.4-46.3); Red Blood Count 4.14 M/uL (4.7-6.1); White Blood Count 13.46 K/uL (4.8-10.8)
[2020-04-29 04:54] LABS: Alanine Aminotransferase 46 U/L (12-78); Albumin Level 3.2 gm/dl (3.4-5.0); Aspartate Aminotransferase 16 U/L (15-37); BUN Creatinine Ratio 13.1 (10-20); Blood Urea Nitrogen 11 mg/dl (7-18); Carbon Dioxide 25 mmol/L (21-32); Chloride 113 mmol/L (98-107); Creatinine Clr Calc Pharmacy 157.5 ml/min; Est GFR (African American) 123.4; Est GFR (Non-African American) 106.5; Glucose 124 mg/dl (70-99); Magnesium 2.3 mg/dl (1.8-2.4); Potassium 4.1 mmol/L (3.5-5.1); Sodium 142 mmol/L (136-145)
[2020-04-29 04:56] LABS: Alkaline Phosphatase 75 U/L (45-117); Bilirubin Direct < 0.1 mg/dl (0-0.2); Bilirubin,Total 0.2 mg/dl (0.2-1); Creatine Kinase 256 U/L (39-308); Total Protein 6.9 gm/dl (6.4-8.2)
--- NOTE | 2020-04-29 05:31 | History and Physical Report ---
DATE OF ADMISSION: 04/29/2020 CHIEF COMPLAINT: Tremors and currently confused. HISTORY OF PRESENT ILLNESS: This is a 44-year-old male with past medical history significant for hyperlipidemia, seizure disorder, history of migraines with aura, history of mood disorder, PTSD, tobacco use disorder, history of CVA, history of head injury, who lives at home with his , was brought in because of seizure-like activity, tremors. As per the , the patient was doing okay until then. They had paid some bills and he was doing okay, then he complained that he was not feeling good. He felt that the seizure is coming on and he has restless legs syndrome and his legs were shaky and he was tremulous and he took 2 extra gabapentin doses and also he took some extra Ativan. That did not help and he had asked to call the EMS. When the EMS came, he was shaking and they gave him 4 mg of Versed and he was brought in. The patient is currently somewhat sedated and confused. He was not able to give much history. He could tell his name, but he does not know where he is and he is constantly moving his legs. He is somewhat tachycardic and has somewhat mild diaphoresis and blood pressure running on the higher side. Pupils are somewhat sluggish to react. He says he took some extra dose of gabapentin. In the ER, drug screen is pending, but is positive for benzos and marijuana. His EKG shows QTC of 542. Recently he was in the hospital in August for stroke-like symptoms. At that time, the workup with CT scans and MRI with no acute findings. He was not compliant with CPAP for the sleep apnea. ALLERGIES: ASPIRIN, BEE VENOM, PENICILLINS, LATEX, NIACIN. PAST MEDICAL HISTORY: As mentioned above. PAST SURGICAL HISTORY: Colonoscopy. MEDICATIONS: The patient is on Doxepin 150 mg p.o. daily, lorazepam 0.5 mg p.o. b.i.d., Protonix 40 mg p.o. daily, prazosin 2 mg p.o. daily, baclofen 10 mg p.o. t.i.d., Effexor 75 mg p.o. b.i.d., gabapentin 800 mg p.o. t.i.d. FAMILY HISTORY: No family history in file. SOCIAL HISTORY: , smokes 1 pack of cigarettes daily for 28 years. No alcohol use. Smokes marijuana occasionally. REVIEW OF SYSTEMS: Unobtainable at this time. PHYSICAL EXAMINATION: GENERAL: The patient is drowsy. VITAL SIGNS: Temperature 36.7, pulse 122, respiratory rate 20, blood pressure 148/87, oxygen 91% on 2 liters. HEENT: Pupils somewhat sluggish to react. No miosis, no mydriasis. Head atraumatic. NECK: No neck masses seen. No JVD seen. CARDIOVASCULAR: S1, S2 heard. Tachycardia. No murmurs. RESPIRATORY SYSTEM: Normal AP diameter. No accessory muscle use. No wheezing, no crackles. ABDOMEN: Soft, bowel sounds sluggish. No distention. CENTRAL NERVOUS SYSTEM: Drowsy, oriented to name only. Speech is somewhat garbled at this time. Spontaneous movement of the lower extremities. Could not do a comprehensive [employer] exam. EXTREMITIES: No edema, no erythema. LABORATORY DATA: WBC 13, hemoglobin 13.4, hematocrit 40.7, platelets 283. PT 10.7, INR 1. Sodium 143, potassium 3.8, chloride 103, CO2 of 25, BUN 14, creatinine 0.9, serum glucose 97, calcium 8.5, magnesium 2, total bilirubin less than 0.1, direct bilirubin less than 0.1, AST 18, ALT 54, alkaline phosphatase 82, ammonia 22, total creatinine kinase 133. Troponin I less than 0.015. Lipase 117. Urinalysis negative. Toxicology screen, salicylates 2.5, acetaminophen less than 2, benzodiazepine positive, marijuana positive. Ethyl alcohol less than 3. IMAGING DATA: Chest x-ray, no acute findings seen. CT of the head, no acute findings seen. EKG: Sinus tachycardia at a rate of 121, QTc of 542. ASSESSMENT AND PLAN: This is a 44-year-old male who presents with tremors, tachycardia, and altered mental status. 1. Tremors, tachycardia, and altered mental status. As per his , the patient was feeling shaky and coming of seizure. Had extra dose gabapentin and Ativan. He did not lose consciousness, but EMS gave him 4 mg of Versed. Currently he is drowsy. CT of head is unremarkable. Labs showed mild leukocytosis, but otherwise unremarkable. Drug screen, salicylates 2.5, benzo positive, and marijuana positive. Ethyl alcohol less than 3. Question of serotonin syndrome because of his psych medications or anticholinergic effect. Poison control was contacted by the ER. Recommended to follow up with EKG and fluids and closely monitor. We will closely monitor in the ICU for now. Placed him on IV Ativan p.r.n., IV fluids. Hold his home p.o. medications. Follow repeat labs. Repeat EKG. 2. Prolonged QT. Follow the repeat EKG. Received magnesium in the ER. 3. History of sleep apnea, noncompliant with CPAP. We will follow the ABG levels. 4. History of hypertension, currently not on any medications. Will monitor his blood pressure. Will place him on IV labetalol p.r.n. if needed. 5. History of mood disorder, posttraumatic stress disorder. Last admission he was seen by psych because of his suicidal ideation. We are holding his psych medication for now. To restart when patient is stable. 6. Tobacco abuse, needs counseling. 7. History of traumatic cerebrovascular accident, questionable seizure disorder, currently not on any medications. We will consult neurology in a.m. EEG 8. Deep venous thrombosis prophylaxis, sequential compression devices. DISPOSITION: Closely monitor in the ICU. Level 1 full code. Addendum: In the ICU patient woke up and was requesting for morphine for his headache. He was very aggressive and adamant on having morphine and says he will sign out AMA. Also says he is going to [facility] because we are letting him suffer. Says he came to hospital because he was having seizure and now he is having headaches and wants pain meds. Patient continue to be aggressive and was not listening to any explanation. ICU team and psychiatry patiently talked with patient but he was no listening and getting more aggressive and wanted to leave. Wanted to get an ekg to see his qt prolongation but says his heart is ok and Heart rate is high because of his pain and he came for seizures but now he is in pain. Says means "medically dumb". Reviewing records He left AMA in the past for not getting pain meds. Mention of no narcotics to be given to the patient. Hx of admissions to psychiatric facilities. ICU also talked with his . She came to take him home and patient left AMA. HOLLIS
--- NOTE | 2020-04-29 08:21 | Electrocardiogram Report ---
Test Reason : Blood Pressure : / mmHG Vent. Rate : 121 BPM Atrial Rate : 121 BPM P-R Int : 168 ms QRS Dur : 080 ms QT Int : 382 ms P-R-T Axes : 056 043 090 degrees QTc Int : 542 ms Sinus tachycardia Diffuse Minor Nonspecific ST and T wave abnormality Abnormal ECG When compared with ECG of 21-SEP-2019 04:33, No significant change was found Confirmed by Rj Baxter ([id number]) on 04/29/2020 8:21:14 AM Referred By: REFERRED SELF Confirmed By:Rj Baxter
--- NOTE | 2020-04-29 09:15 | CT Scan Report ---
CT SCAN OF THE BRAIN WITHOUT IV CONTRAST CLINICAL HISTORY: Change in mental status. COMPARISON STUDY: CT of the brain dated 12/23/2019. TECHNIQUE: Unenhanced axial CT scan of the brain is performed from the vertex to the skull base. A d ose lowering technique was utilized adhering to the principles of ALARA. The patient was scanned twic e due to motion artifact. CT DOSE: 1363.67 mGy.cm FINDINGS: Brain parenchyma: The brain parenchyma is normal in appearance. There is no hemorrhage, mass effect, or evidence of acute territorial ischemia by CT criteria. Reed-white matter differentiation is preser singh. No extra-axial fluid collection is seen. Ventricles, sulci, cisterns: Normal in configuration. Intracranial vasculature: The visualized intracranial vasculature at the skull base is normal in appe arance. Calvarium: Unremarkable. Sinuses and mastoids: Trace mucosal thickening is noted in the right maxillary antrum and the ethmoid sinuses. There is evidence of previous paranasal sinus surgery. The mastoid air cells are well pneum atized. Orbits: The bony orbits are grossly intact. IMPRESSION: No acute intracranial abnormality. ACT 112: Negative or not required by law. Electronically signed by: Isaiah Quiroz M.D. 04/29/2020 9:14 AM
--- NOTE | 2020-04-29 10:18 | XRay Report ---
SINGLE VIEW CHEST CLINICAL HISTORY: Change in mental status. FINDINGS: An AP, portable, supine chest radiograph is compared to study dated 05/04/2019 and correlate d with chest CT dated 09/20/2019. The examination is degraded by portable technique and patient rotati on. The heart is top normal for projection. There is mild elevation of the right hemidiaphragm. The lungs and pleural spaces are clear. No pneumothorax is seen. The bony thorax is grossly intact. IMPRESSION: No active disease in the chest. ACT 112: Negative or not required by law. Electronically signed by: Isaiah Quiroz M.D. 04/29/2020 10:17 AM
[2020-05-01 04:52] LABS: 7-Aminoclonaz, Confirm NEGATIVE ng/mL (<25); Hydro-Alp Ur, GC/MS NEGATIVE ng/mL (<25); Hydroxyethylflurazepam, Conf NEGATIVE ng/mL (<50); Hydroxymidazolam Ur, GC/MS >2000 ng/mL (<50); Hydroxytriazolam NEGATIVE ng/mL (<50); Lorazepam, Ur GC/MS 584 ng/mL (<50); Marijuana Quant, GCMS Urine 144 ng/mL (<5); Nordiazepam, Confirm NEGATIVE ng/mL (<50); Oxazepam Ur, GC/MS NEGATIVE ng/mL (<50); Temazepam, Confirm NEGATIVE ng/mL (<50)
== END 2020-04-29 07:03 | disposition left against medical advice (07) | DRG 316 ==
LOC: ED 23:13 → 1E 04-29 02:02